=== PATIENT | male | born 1960 | race Caucasian/White ===

== ENCOUNTER 2017-02-27 12:56 | Inpatient (IN) | payer OTHER ==
--- NOTE | 2017-02-27 13:25 | EDM.PDOC ---
ED HISTORY OF PRESENT ILLNESS - General Chief Complaint: Respiratory Problem Stated Complaint: Cough, shortness of breath Time Seen by Provider: 02/27/17 13:25 Source of Information: Reports: Patient, RN notes reviewed History Limitations: Reports: No limitations - History of Present Illness INITIAL COMMENTS - FREE TEXT/NARRATIVE: 56 year old male presents to the ED for evaluation of shortness of breath and harsh, productive, cough. Sputum is described as yellow/brown in nature. He has a chronic dry cough. He denies fever but says he's felt chilled. His shortness of breath has significantly worsened over the past couple days. He is short of breath even with talking. He is not tolerating any sort of exertion. 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 He is undergoing chemo and radiation. He has been unable to eat or drink due to severe throat pain which has been attributed to the radiation treatments. He has lost 10 lbs over the past few days. He was at [facility] today for IV fluid therapy at which time they sent him to the ED due to his shortness of breath and cough. He does not wear oxygen at home. His Oncologist is Dr. Medel. He denies abdominal pain, nausea, vomiting, diarrhea. He was constipated but had 3 large bowel movements yesterday after taking Dulcolax. His abdomen is distended which is not new. - Related Data Allergies/ADRs: Allergies Allergy/AdvReac Type Severity Reaction Status Date / Time No Known Allergies Allergy Verified 02/27/17 13:18 Home Meds: Home Meds Albuterol [IJD: Ventolin HFA] 1 puff INH .TWICE DAILY #18 gm 01/16/17 [Rx] Aspirin [Adult Low Dose Aspirin EC] 1 tab PO DAILY 01/16/17 [History] Esomeprazole Magnesium [Nexium 24Hr] 1 tab PO DAILY 01/16/17 [History] methylPREDNISolone [Medrol] 4 mg PO ASDIRECTED #1 dosepk 01/16/17 [Rx] Past Medical History - Past Health History Medical/Surgical History: Denies Medical/Surgical History Gastrointestinal History: Reports: GERD Genitourinary History: Reports: Other (see below) Other Genitourinary History: 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 Denies : fever HEENT: Reports: Throat pain. Denies: Throat swelling Respiratory: Reports: Shortness of Breath, Cough, Sputum Cardiovascular: Reports: Dyspnea on exertion. Denies: Chest pain, Edema, Lightheadedness GI/Abdominal: Reports: Decreased appetite, Distension. Denies: Abdominal pain, Diarrhea, Nausea, Vomiting Musculoskeletal: Reports: no symptoms Neurological: Reports: No Symptoms. Denies: Confusion, Dizziness, Headache, Syncope ED EXAM, GENERAL - Physical Exam Exam: See Below Exam Limited By: No limitations General Appearance: alert, WD/WN, moderate distress Throat/Mouth: Other (dry mucous membranes, oropharynx is red but without swelling) Neck: normal inspection, supple, non-tender Respiratory/Chest: chest non-tender, respiratory distress, other (course lung sounds to left base and upper lobes ) Cardiovascular: normal peripheral pulses, regular rate, rhythm, no edema GI/Abdominal: normal bowel sounds, non tender, distended Neurological: alert, oriented, normal cognition Skin Exam: Warm, Dry, Intact Course - Vital Signs Last Recorded V/S: Last Vital Signs Temp 97.1 F 02/27/17 13:04 Pulse 85 02/27/17 13:04 Resp 18 02/27/17 13:04 BP 112/73 02/27/17 13:04 Pulse Ox 91 L 02/27/17 13:04 - Orders/Labs/Meds Orders: Active Orders 24 hr Category Date Time Status Patient Status [ADT] Routine ADT 02/27/17 16:10 Ordered Cardiac Monitoring [RC] . DIRECTED Care 02/27/17 13:37 Active CULTURE BLOOD [BC] Stat Lab 02/27/17 13:40 Ordered CULTURE BLOOD [BC] Stat Lab 02/27/17 14:38 Received Sodium Chloride 0.9% [Normal Saline] 1,000 ml Med 02/27/17 13:40 Active IV ONETIME Blood Culture x2 Reflex Set [OM.PC] Stat Oth 02/27/17 13:37 Ordered Medication Orders Sodium Chloride (Normal Saline) 1,000 mls @ 150 mls/hr IV ONETIME ONE Stop: 02/27/17 20:19 Last Admin: 02/27/17 14:21 Dose: 150 mls/hr Labs: Laboratory Tests 02/27/17 02/27/17 02/27/17 Range/Units 14:38 14:38 14:38 WBC 5.08 (4.23-9.07) K/mm3 RBC 5.15 (4.63-6.08) M/mm3 Hgb 14.6 (13.7-17.5) gm/L Hct 42.8 (40.1-51.0) % MCV 83.1 (79.0-92.2) fl MCH 28.3 (25.7-32.2) pg MCHC 34.1 (32.2-35.5) g/dl RDW Std Deviation 43.3 (35.1-43.9) fL Plt Count 80 L (163-337) K/mm3 MPV 9.6 (9.4-12.3) fl Neutrophils % (Manual) 84 H (40-60) % Band Neutrophils % 10 (0-10) % Lymphocytes % (Manual) 3 L (20-40) % Atypical Lymphs % 0 % Monocytes % (Manual) 3 (2-10) % Eosinophils % (Manual) 0 L (0.8-7.0) % Basophils % (Manual) 0 L (0.2-1.2) Toxic Granulation Few Platelet Estimate Decreased RBC Morph Comment Normal Sodium 130 L (136-145) mEq/L Potassium 4.6 (3.5-5.1) mEq/L Chloride 97 L (98-107) mEq/L Carbon Dioxide 27 (21-32) mEq/L Anion Gap 10.6 (5-15) BUN 28 H (7-18) mg/dL Creatinine 0.7 (0.7-1.3) mg/dL Est Cr Clr Drug Dosing 133.74 mL/min Estimated GFR (MDRD) > 60 (>60) mL/min BUN/Creatinine Ratio 40.0 H (14-18) Glucose 105 (74-106) mg/dL Lactic Acid 0.8 (0.4-2.0) mmol/L Calcium 8.8 (8.5-10.1) mg/dL Total Bilirubin 0.8 (0.2-1.0) mg/dL AST 29 (15-37) U/L ALT 84 H (16-63) U/L Alkaline Phosphatase 64 (46-116) U/L C-Reactive Protein 7.9 H* (<1.0) mg/dL Total Protein 6.3 L (6.4-8.2) g/dl Albumin 3.0 L (3.4-5.0) g/dl Globulin 3.3 gm/dL Albumin/Globulin Ratio 0.9 L (1-2) Meds: Medications Generic Name Dose Route Start Last Admin Trade Name Freq PRN Reason Stop Dose Admin Sodium Chloride 1,000 mls @ 150 mls/hr 02/27/17 13:40 02/27/17 14:21 Normal Saline IV 02/27/17 20:19 150 mls/hr ONETIME ONE Administration - Re-Assessments/Exams Free Text/Narrative Re-Assessment/Exam: Patient arrived with port-a-cath accessed. Nursing staff reported that they were unable to draw blood from the port. Offered peripheral draw but patient declined and preferred to have his port re-accessed. The nurses discontinued and restarted the port, again with no success drawing blood. Peripheral blood draw was performed. For this reason, only one blood culture was obtained. CBC reveals normal WBC of 5. Platelets are 80. H&H is normal. Sodium is 130, BUN 28, Creatinine normal. Anion gap is also normal. CRP is elevated at 7.9. Lactic acid is normal. Influenza B positive. Patient ambulated in ED on room air, saturation dropped to 84% with minimal exertion. Patient is agreeable to admission for influenza, hypoxia, dehydration. Discussed with Hospitalist Dr. Chou who has accepted care of patient for inpatient admission with telemetry. Patient finished his last chemo treatment today and now has a 20+ day break from chemo and radiation. Departure - Departure Time of Disposition: 16:11 Disposition: Admitted As Inpatient 64 Condition: fair Clinical Impression: Influenza, Hypoxia, Dehydration Referrals: PCP,None [Primary Care Provider] - Forms: ED Department Discharge - My Orders Last 24 Hours: My Active Orders 02/27/17 13:37 Cardiac Monitoring [RC] . DIRECTED Blood Culture x2 Reflex Set [OM.PC] Stat 02/27/17 13:40 CULTURE BLOOD [BC] Stat Sodium Chloride 0.9% [Normal Saline] 1,000 ml IV ONETIME 02/27/17 14:38 CULTURE BLOOD [BC] Stat 02/27/17 16:10 Patient Status [ADT] Routine - Assessment/Plan Last 24 Hours: My Active Orders 02/27/17 13:37 Cardiac Monitoring [RC] . DIRECTED Blood Culture x2 Reflex Set [OM.PC] Stat 02/27/17 13:40 CULTURE BLOOD [BC] Stat Sodium Chloride 0.9% [Normal Saline] 1,000 ml IV ONETIME 02/27/17 14:38 CULTURE BLOOD [BC] Stat 02/27/17 16:10 Patient Status [ADT] Routine
[2017-02-27] MEDS ORDERED: Sodium Chloride 0.9% 1,000 ML IV ONE (13:40)
--- NOTE | 2017-02-27 14:44 | CR ---
Chest: Two views of the chest are obtained. Comparison: No previous study. Increased central lung markings are seen. No alveolar type densities are seen. Diaphragms are slightly flattened on the lateral view. Bony structures are within normal limits for the patient's age. Left-sided infusion port is seen. Impression: 1. Increased central lung markings. Please correlate if patient has any symptoms of infectious bronchitis. 2. Lungs are somewhat hyperinflated compatible with possible emphysematous change or chronic asthma. Diagnostic code #3
[2017-02-27] MEDS ORDERED: Albuterol 0.083% 2.5 MG/3 ML Neb Soln NEB PRN (17:41)
[2017-02-27] MEDS ORDERED: Ondansetron 4 MG/2 ML SDV IVPUSH PRN (17:44)
[2017-02-27] MEDS ORDERED: Promethazine 12.5 MG in Sodium Chloride 0.9% 50 ML IV PRN (17:44)
[2017-02-27] MEDS ORDERED: Acetaminophen Soln 650 MG/20.3 ML UD Cup PO PRN (17:54)
[2017-02-27] MEDS ORDERED: Temazepam 15 MG Cap PO PRN (17:56)
[2017-02-27] MEDS: Oseltamivir 75 MG Cap PO SCH ×2 (17:57→20:54)
[2017-02-27] MEDS: methylPREDNISolone Sodium Succinate 40 MG/1 ML SDV IVPUSH SCH (17:57)
[2017-02-27] MEDS: Lactated Ringers 1,000 ML IV SCH ×3 (18:04→20:53)
--- NOTE | 2017-02-27 18:31 | PCM.HP ---
H&P History of Present Illness - General Date of Service: 02/27/17 Admit Problem/Dx: Admission Diagnosis/Problem Admission Diagnosis/Problem Influenza Source of Information: Patient, Family, Provider History Limitations: Reports: No limitations - History of Present Illness Initial Comments - Free Text/Narative: 56 year old male with history of non-operative small cell lung ca with mets to the spine, presents with dehydration; was seen at [facility] and receiving IV hydration, but was sent with SOB associated with a harsh cough. The patient complained of sputum as well, denied corbin blood. Admits to chills however, denies a fever. Has been unable to eat since the initiation of CTX/RTX; state that it feels like the food is getting stuck in his throat. He has lost 10 pounds since he has been unable to great, occasionally after medication to numb his throat he can tolerate beverages. Onset of Symptoms: Reports: unknown/unsure Duration of Symptoms: Reports: Week(s):, Getting worse Location: Reports: chest Quality: Reports: Same as previous episode Severity: severe Improves with: Reports: None Worsens with: Reports: None Context: Reports: sick contact Associated Symptoms: Reports: cough w sputum, fever/chills, loss of appetite, shortness of breath, weakness - Related Data Allergies/Adverse Reactions: Allergies Allergy/AdvReac Type Severity Reaction Status Date / Time No Known Allergies Allergy Verified 02/27/17 13:18 Home Medications: Home Meds Albuterol [IJD: Ventolin HFA] 1 puff INH .TWICE DAILY #18 gm 01/16/17 [Rx] methylPREDNISolone [Medrol] 4 mg PO TID 02/27/17 [History] Past Medical History - Past Health History Medical/Surgical History: Denies Medical/Surgical History Gastrointestinal History: Reports: GERD Genitourinary History: Reports: Other (see below) Other Genitourinary History: 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 Denies: fever HEENT: Reports: no symptoms Pulmonary: Reports: Shortness of Breath Cardiovascular: Reports: chest pain Gastrointestinal: Reports: Anorexia, Constipation, Difficulty swallowing Genitourinary: Reports: no symptoms Musculoskeletal: Reports: no symptoms Skin: Reports: no symptoms Psychiatric: Reports: no symptoms Neurological: Reports: No Symptoms Hematologic/Lymphatic: Reports: no symptoms Immunologic: Reports: no symptoms Exam - Exam Exam: See Below - Vital Signs Vital Signs: Last Vital Signs Temp 36.2 C 02/27/17 13:04 Pulse 75 02/27/17 16:40 Resp 21 H 02/27/17 16:40 BP 125/88 02/27/17 16:40 Pulse Ox 96 02/27/17 16:40 Weight: 96.298 kg - Exam Quality Assessment: central line/PICC, DVT prophylaxis General: alert, oriented, cooperative HEENT: EOMI, Hearing intact, Nares patent, Normal nasal septum, Pupils equal, Pupils reactive Neck: supple, trachea midline Lungs: Normal respiratory effort, Decreased breath sounds, Wheezing Cardiovascular: regular rate, tachycardia Abdomen: normal bowel sounds, soft (Male) Exam: Deferred Rectal (Males) Exam: Deferred Back Exam: normal inspection Extremities: normal inspection Skin: warm Neurological: cranial nerves intact Neuro Extensive - Mental Status: alert, oriented x3, normal mood/affect, normal cognition, memory intact Neuro Extensive - Motor, Sensory, Reflexes: CN II-XII intact Psychiatric: alert, normal affect, normal mood - Patient Data Result Diagrams: 02/27/17 14:38 02/27/17 14:38 *Q Meaningful Use (ADM) - VTE *Q VTE Criteria *Q: - Stroke *Q Stroke Criteria *Q: - AMI *Q AMI Criteria *Q: - Problem List (1) Dehydration SNOMED Code(s): 36946900 ICD Code: E86.0 - DEHYDRATION Status: Acute Current Visit: Yes (2) Hypoxia SNOMED Code(s): 035622432, 346791769 ICD Code: R09.02 - HYPOXEMIA Status: Acute Current Visit: Yes (3) Influenza SNOMED Code(s): 5259142 ICD Code: J11.1 - FLU DUE TO UNIDENTIFIED INFLUENZA VIRUS W OTH RESP MANIFEST Status: Acute Current Visit: Yes Problem List Initiated/Reviewed/Updated: Yes Orders Last 24hrs: Active Orders 24 hr Category Date Time Status Activity as Tolerated [RC] .Routine Care 02/27/17 18:04 Active Antiembolic Devices [RC] PER UNIT ROUTINE Care 02/27/17 17:41 Active RT Aerosol Therapy [RC] .PRN Care 02/27/17 17:39 Active RT Aerosol Therapy [RC] ASDIRECTED Care 02/27/17 17:41 Active Vital Signs [RC] PER UNIT ROUTINE Care 02/27/17 17:34 Active Consult to Occupational Therapy [OT Evaluation and Cons 02/28/17 10:00 Active Treatment] [CONS] Routine Consult to Physical Therapy [PT Evaluation and Cons 02/28/17 09:00 Active Treatment] [CONS] Routine Consult to [facility] [CONS] Routine Cons 02/28/17 09:00 Active Clear Liquid Diet [DIET] Diet 02/27/17 Dinner Active NPO After Midnight [Nothing per Oral After Midnight Diet 02/28/17 Breakfast Active Diet] [DIET] CXR [Chest 2V] [CR] Routine Exams 03/01/17 09:00 Ordered Swallowing Function w Video [CR] Routine Exams 02/28/17 08:45 Ordered BASIC METABOLIC PANEL,BMP [CHEM] DAILY Lab 02/28/17 05:00 Ordered BASIC METABOLIC PANEL,BMP [CHEM] DAILY Lab 03/01/17 05:00 Ordered BASIC METABOLIC PANEL,BMP [CHEM] DAILY Lab 03/02/17 05:00 Ordered CBC W/O DIFF,HEMOGRAM [HEME] MOTH@0700 Lab 03/03/17 07:00 Ordered CBC W/O DIFF,HEMOGRAM [HEME] MOTH@0700 Lab 03/06/17 07:00 Ordered CBC W/O DIFF,HEMOGRAM [HEME] MOTH@0700 Lab 03/10/17 07:00 Ordered CBC W/O DIFF,HEMOGRAM [HEME] MOTH@0700 Lab 03/13/17 07:00 Ordered CBC W/O DIFF,HEMOGRAM [HEME] MOTH@0700 Lab 03/17/17 07:00 Ordered CBC W/O DIFF,HEMOGRAM [HEME] MOTH@0700 Lab 03/20/17 07:00 Ordered CBC WITH AUTO DIFF [HEME] DAILY Lab 02/28/17 05:00 Ordered CBC WITH AUTO DIFF [HEME] DAILY Lab 03/01/17 05:00 Ordered CBC WITH AUTO DIFF [HEME] DAILY Lab 03/02/17 05:00 Ordered CRP [C-REACTIVE PROTEIN] [CHEM] DAILY Lab 02/28/17 05:00 Ordered CRP [C-REACTIVE PROTEIN] [CHEM] DAILY Lab 03/01/17 05:00 Ordered MAGNESIUM [CHEM] DAILY Lab 02/28/17 05:00 Ordered MAGNESIUM [CHEM] DAILY Lab 03/01/17 05:00 Ordered MAGNESIUM [CHEM] DAILY Lab 03/02/17 05:00 Ordered MYCOPLASMA PNEUMONIAE IGM AB [CHEM] Routine Lab 02/28/17 05:00 Ordered STREP PNEUMONIAE ANTIGEN [MREF] Routine Lab 02/28/17 19:00 Uncollected Acetaminophen [Tylenol] Med 02/27/17 17:54 Active 650 mg PO Q6H PRN Albuterol [Proventil Neb Soln] Med 02/27/17 17:41 Active 2.5 mg NEB Q4H PRN Enoxaparin [Lovenox] Med 02/28/17 09:00 Pending 40 mg SUBCUT DAILY Lactated Ringers [Ringers, Lactated] 1,000 ml Med 02/27/17 20:00 Active IV ASDIRECTED Lactated Ringers [Ringers, Lactated] 1,000 ml Med 02/27/17 17:45 Active IV Q1H Levalbuterol HCl [Xopenex] Med 02/27/17 21:00 Active 1.25 mg NEB QIDRT Ondansetron [Zofran] Med 02/27/17 17:44 Active 4 mg IVPUSH Q8H PRN Oseltamivir [Tamiflu] Med 02/27/17 17:45 Active 75 mg PO BID Promethazine [Phenergan] 12.5 mg Med 02/27/17 17:44 Active Sodium Chloride 0.9% [Normal Saline] 50 ml IV Q6H Temazepam [Restoril] Med 02/27/17 17:56 Active 15 mg PO BEDTIME PRN methylPREDNISolone Sod Succ [Solu-MEDROL] Med 02/27/17 18:00 Active 40 mg IVPUSH Q12H Isolation [COMM] Routine Oth 02/27/17 17:56 Ordered MARIANA Hose [Antiembolic Hose] [OM.PC] Routine Oth 02/27/17 17:41 Ordered Code Status [Resuscitation Status] Routine Resus Stat 02/27/17 17:34 Ordered Medication Orders Acetaminophen (Tylenol) 650 mg PO Q6H PRN PRN Reason: Fever Albuterol (Proventil Neb Soln) 2.5 mg NEB Q4H PRN PRN Reason: Shortness of Breath Enoxaparin Sodium (Lovenox) 40 mg SUBCUT DAILY [facility] Lactated Ringer's (Ringers, Lactated) 1,000 mls @ 999 mls/hr IV Q1H [facility] Stop: 02/27/17 20:44 Last Admin: 02/27/17 18:04 Dose: 999 mls/hr Promethazine HCl 12.5 mg/ (Sodium Chloride) 50.5 mls @ 100 mls/hr IV Q6H PRN PRN Reason: Nausea/Vomiting Lactated Ringer's (Ringers, Lactated) 1,000 mls @ 125 mls/hr IV ASDIRECTED [facility] Levalbuterol HCl (Xopenex) 1.25 mg NEB QIDRT [facility] Methylprednisolone Sodium Succinate (Solu-Medrol) 40 mg IVPUSH Q12H [facility] Last Admin: 02/27/17 17:57 Dose: 40 mg Ondansetron HCl (Zofran) 4 mg IVPUSH Q8H PRN PRN Reason: Nausea/Vomiting Oseltamivir Phosphate (Tamiflu) 75 mg PO BID [facility] Last Admin: 02/27/17 17:57 Dose: 75 mg Temazepam (Restoril) 15 mg PO BEDTIME PRN PRN Reason: Insomnia Assessment/Plan Comment:: Impression: Acute respiratory suppression with hypoxia, Influenza B positive s/p CTX/RTX for 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 Resp screen for pneumonia DVT/GI prophylaxis SW/OT/PT re: home health DNR/DNI
[2017-02-27] MEDS ORDERED: Diphenhydramine/Lidocaine/MagAl/Simethicone 119 ML Bottle PO PRN (19:12)
[2017-02-27] MEDS ORDERED: Lactated Ringers 1,000 ML IV SCH (20:00)
[2017-02-27] MEDS: Levalbuterol HCl 1.25 MG/3 ML Neb NEB SCH (20:42)
[2017-02-28] MEDS: methylPREDNISolone Sodium Succinate 40 MG/1 ML SDV IVPUSH SCH ×2 (05:40→17:58)
[2017-02-28] MEDS: Levalbuterol HCl 1.25 MG/3 ML Neb NEB SCH ×4 (06:12→20:51)
[2017-02-28] MEDS ORDERED: Enoxaparin 40 MG/0.4 ML Syringe SUBCUT SCH (09:00)
[2017-02-28] MEDS: Oseltamivir 75 MG Cap PO SCH ×2 (09:53→21:35)
[2017-02-28] MEDS ORDERED: Barium Sulfate 60% w/v Susp 355 ML Bottle PO ONE (09:58)
[2017-02-28] MEDS ORDERED: Barium Sulfate 60% w/w Esophageal Crm 454 GM Tube PO ONE (09:58)
[2017-02-28] MEDS ORDERED: Barium Sulfate 98% Powder for Susp 340 GM Bottle PO ONE (09:58)
[2017-02-28] MEDS ORDERED: Piperacillin/Tazobactam 4.5 GM in Sodium Chloride 0.9% 100 ML IV ONE (10:30)
[2017-02-28] MEDS ORDERED: Levofloxacin/Dextrose 5%-Water 750 MG in Premix Bag 1 BAG IV SCH (11:00)
--- NOTE | 2017-02-28 11:08 | CR ---
[facility] swallowing video procedure was performed in conjunction with the speech pathologist. Different consistencies of barium were given. No aspiration or significant residual is seen. Slow peristaltic wave is noted within the esophagus. No esophageal stricture is seen. Impression: 1. Slow peristaltic wave seen within the esophagus. Findings felt compatible with early presbyesophagus. No stricture is seen within the esophagus. 2. No aspiration or significant residual is seen. Diagnostic code #2
[2017-02-28] MEDS: Saccharomyces Boulardii (Probiotic) 250 MG Cap PO SCH (11:13)
--- NOTE | 2017-02-28 11:58 | PCM.PN ---
- General Info Date of Service: 02/28/17 Functional Status: Reports: pain controlled, tolerating diet, ambulating, urinating - Review of Systems General: Reports: Weakness HEENT: Reports: no symptoms Pulmonary: Reports: shortness of breath Cardiovascular: Reports: No Symptoms Gastrointestinal: Reports: Difficulty swallowing. Denies: No symptoms Genitourinary: Reports: no symptoms Musculoskeletal: Reports: no symptoms Skin: Reports: no symptoms Neurological: Reports: No Symptoms Psychiatric: Reports: no symptoms - Patient Data Vitals - most recent: Last Vital Signs Temp 36.9 C 02/28/17 05:40 Pulse 68 02/28/17 05:40 Resp 14 02/28/17 05:40 BP 97/68 02/28/17 05:40 Pulse Ox 90 L 02/28/17 09:15 Weight - most recent: 94.937 kg I&O - last 24 hours: Intake & Output 02/27/17 02/28/17 02/28/17 22:59 06:59 14:59 Intake Total 600 1700 0 Output Total 1200 Balance 600 500 0 Lab Results last 24 hrs: Laboratory Results - last 24 hr 02/28/17 02/28/17 Range/Units 05:53 05:53 WBC 4.17 L (4.23-9.07) K/mm3 RBC 4.71 (4.63-6.08) M/mm3 Hgb 13.6 L (13.7-17.5) gm/L Hct 39.6 L (40.1-51.0) % MCV 84.1 (79.0-92.2) fl MCH 28.9 (25.7-32.2) pg MCHC 34.3 (32.2-35.5) g/dl RDW Std Deviation 43.9 (35.1-43.9) fL Plt Count 65 L (163-337) K/mm3 MPV 9.5 (9.4-12.3) fl Neut % (Auto) 86.7 H (34.0-67.9) % Lymph % (Auto) 1.9 L (21.8-53.1) % [place] % (Auto) 0.2 L (5.3-12.2) % Eos % (Auto) 0 L (0.8-7.0) Baso % (Auto) 0.2 (0.1-1.2) % Neut # (Auto) 3.61 (1.78-5.38) K/mm3 Lymph # (Auto) 0.08 L (1.32-3.57) K/mm3 [place] # (Auto) 0.01 L (0.30-0.82) K/mm3 Eos # (Auto) 0.00 L (0.04-0.54) K/mm3 Baso # (Auto) 0.01 (0.01-0.08) K/mm3 Manual Slide Review Abnormal smear Sodium 133 L (136-145) mEq/L Potassium 4.4 (3.5-5.1) mEq/L Chloride 98 (98-107) mEq/L Carbon Dioxide 30 (21-32) mEq/L Anion Gap 9.4 (5-15) BUN 21 H (7-18) mg/dL Creatinine 0.8 (0.7-1.3) mg/dL Est Cr Clr Drug Dosing 117.02 mL/min Estimated GFR (MDRD) > 60 (>60) mL/min BUN/Creatinine Ratio 26.3 H (14-18) Glucose 95 (74-106) mg/dL Calcium 8.5 (8.5-10.1) mg/dL Magnesium 1.9 (1.8-2.4) mg/dl C-Reactive Protein 14.2 H* (<1.0) mg/dL Mycoplasma pneumon IgM Negative (NEGATIVE) Med Orders - Current: Current Medications Acetaminophen (Tylenol) 650 mg PO Q6H PRN PRN Reason: Fever Albuterol (Proventil Neb Soln) 2.5 mg NEB Q4H PRN PRN Reason: Shortness of Breath Diphenhydr/Magaldrate/Simeth/Lidoca (First-Mouthwash Blm Susp) 30 ml PO ACBED PRN PRN Reason: Sore Throat Promethazine HCl 12.5 mg/ (Sodium Chloride) 50.5 mls @ 100 mls/hr IV Q6H PRN PRN Reason: Nausea/Vomiting Lactated Ringer's (Ringers, Lactated) 1,000 mls @ 125 mls/hr IV ASDIRECTED [facility] Last Admin: 02/27/17 21:58 Dose: 125 mls/hr Piperacillin Sod/Tazobactam (Sod 4.5 gm/ Sodium Chloride) 100 mls @ 25 mls/hr IV Q8H [facility] Levofloxacin/Dextrose 750 mg/ (Premix) 150 mls @ 100 mls/hr IV Q24H [facility] Levalbuterol HCl (Xopenex) 1.25 mg NEB QIDRT [facility] Last Admin: 02/28/17 09:14 Dose: 1.25 mg Methylprednisolone Sodium Succinate (Solu-Medrol) 40 mg IVPUSH Q12H [facility] Last Admin: 02/28/17 05:40 Dose: 40 mg Ondansetron HCl (Zofran) 4 mg IVPUSH Q8H PRN PRN Reason: Nausea/Vomiting Oseltamivir Phosphate (Tamiflu) 75 mg PO BID [facility] Stop: 03/04/17 21:01 Last Admin: 02/28/17 09:53 Dose: 75 mg Saccharomyces Boulardii (Florastor) 250 mg PO DAILY [facility] Last Admin: 02/28/17 11:13 Dose: 250 mg Temazepam (Restoril) 15 mg PO BEDTIME PRN PRN Reason: Insomnia Discontinued Medications Barium Sulfate (E-Z-Paste) 454 gm PO ONETIME ONE Stop: 02/28/17 09:59 Barium Sulfate (E-Z-Hd) 340 gm PO ONETIME ONE Stop: 02/28/17 09:59 Barium Sulfate (Liquid E-Z Paque) 355 ml PO PREPRO ONE Stop: 02/28/17 09:59 Enoxaparin Sodium (Lovenox) 40 mg SUBCUT DAILY [facility] Sodium Chloride (Normal Saline) 1,000 mls @ 150 mls/hr IV ONETIME ONE Stop: 02/27/17 20:19 Last Admin: 02/27/17 14:21 Dose: 150 mls/hr Lactated Ringer's (Ringers, Lactated) 1,000 mls @ 999 mls/hr IV Q1H [facility] Stop: 02/27/17 20:44 Last Admin: 02/27/17 20:53 Dose: 999 mls/hr Levofloxacin/Dextrose 750 mg/ (Premix) 150 mls @ 100 mls/hr IV Q24H [facility] Piperacillin Sod/Tazobactam (Sod 4.5 gm/ Sodium Chloride) 100 mls @ 200 mls/hr IV ONETIME ONE Stop: 02/28/17 10:59 Last Admin: 02/28/17 11:26 Dose: 200 mls/hr - Exam Quality Assessment: DVT prophylaxis General: alert, oriented, cooperative, no acute distress HEENT: Pupils equal, Pupils reactive, EOMI Neck: supple, trachea midline Lungs: Normal respiratory effort, Decreased breath sounds, Wheezing Cardiovascular: Regular Rate, Regular Rhythm Abdomen: bowel sounds present, soft, no tenderness, no distension (Male) Exam: Deferred Back Exam: normal inspection Extremities: normal pulses Skin: warm Neurological: no new focal deficit, normal gait, normal speech Psy/Mental Status: alert, normal affect, normal mood - Problem List & Annotations (1) Dehydration SNOMED Code(s): 16677265 Code(s): E86.0 - DEHYDRATION Status: Acute Current Visit: Yes (2) Hypoxia SNOMED Code(s): 176488519, 213800124 Code(s): R09.02 - HYPOXEMIA Status: Acute Current Visit: Yes (3) Influenza SNOMED Code(s): 2142644 Code(s): J11.1 - FLU DUE TO UNIDENTIFIED INFLUENZA VIRUS W OTH RESP MANIFEST Status: Acute Current Visit: Yes - Problem List Review Problem List Initiated/Reviewed/Updated: Yes - My Orders Last 24 Hours: My Active Orders 02/27/17 17:34 Vital Signs [RC] Q4HR Code Status [Resuscitation Status] Routine 02/27/17 17:39 RT Aerosol Therapy [RC] .PRN 02/27/17 17:41 Antiembolic Devices [RC] PER UNIT ROUTINE Albuterol [Proventil Neb Soln] 2.5 mg NEB Q4H PRN MARIANA Hose [Antiembolic Hose] [OM.PC] Routine 02/27/17 17:44 Ondansetron [Zofran] 4 mg IVPUSH Q8H PRN Promethazine [Phenergan] 12.5 mg Sodium Chloride 0.9% [Normal Saline] 50 ml IV Q6H 02/27/17 17:45 Oseltamivir [Tamiflu] 75 mg PO BID 02/27/17 17:54 Acetaminophen [Tylenol] 650 mg PO Q6H PRN 02/27/17 17:56 Temazepam [Restoril] 15 mg PO BEDTIME PRN Isolation [COMM] Routine 02/27/17 18:00 methylPREDNISolone Sod Succ [Solu-MEDROL] 40 mg IVPUSH Q12H 02/27/17 18:04 Activity as Tolerated [RC] DAILY 02/27/17 19:12 Diphenhyd/Lidocaine/MagAl/Windy [First-Mouthwash BLM Susp] 30 ml PO ACBED PRN 02/27/17 20:00 Lactated Ringers [Ringers, Lactated] 1,000 ml IV ASDIRECTED 02/27/17 21:00 Levalbuterol HCl [Xopenex] 1.25 mg NEB QIDRT 02/27/17 Dinner Clear Liquid Diet [DIET] 02/28/17 09:00 Consult to Physical Therapy [PT Evaluation and Treatment] [CONS] Routine Consult to Cover Stripper [CONS] Routine 02/28/17 10:00 Consult to Occupational Therapy [OT Evaluation and Treatment] [CONS] Routine 02/28/17 10:30 Saccharomyces Boulardii [Florastor] 250 mg PO DAILY 02/28/17 16:00 Levofloxacin/Dextrose 5%-Water [Levaquin in D5W 750 MG/150 ML] 750 mg Premix Bag 1 bag IV Q24H 02/28/17 18:30 Piperacillin/Tazobactam [Zosyn] 4.5 gm Sodium Chloride 0.9% [Normal Saline] 100 ml IV Q8H 02/28/17 19:00 STREP PNEUMONIAE ANTIGEN [MREF] Routine 02/28/17 Breakfast NPO After Midnight [Nothing per Oral After Midnight Diet] [DIET] 03/01/17 05:00 BASIC METABOLIC PANEL,BMP [CHEM] DAILY CBC WITH AUTO DIFF [HEME] DAILY CRP [C-REACTIVE PROTEIN] [CHEM] DAILY MAGNESIUM [CHEM] DAILY 03/01/17 09:00 CXR [Chest 2V] [CR] Routine 03/02/17 05:00 BASIC METABOLIC PANEL,BMP [CHEM] DAILY CBC WITH AUTO DIFF [HEME] DAILY MAGNESIUM [CHEM] DAILY 03/03/17 07:00 CBC W/O DIFF,HEMOGRAM [HEME] MOTH@69903/06/17 07:00 CBC W/O DIFF,HEMOGRAM [HEME] MOTH@0703/10/17 07:00 CBC W/O DIFF,HEMOGRAM [HEME] MOTH@0700 03/13/17 07:00 CBC W/O DIFF,HEMOGRAM [HEME] MOTH@69903/17/17 07:00 CBC W/O DIFF,HEMOGRAM [HEME] MOTH@0700 03/20/17 07:00 CBC W/O DIFF,HEMOGRAM [HEME] MOTH@0700 - Plan Plan:: Impression: Acute respiratory distress with hypoxia, Influenza B positive s/p CTX/RTX for 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 Query Infiltrate cf URI Video swallow without obstruction, mild dysfunction noted in area where patient describes pain. 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 DVT/GI prophylaxis SW/OT/PT re: home health DNR/DNI
[2017-02-28] MEDS: Sodium Chloride 0.9% 1,000 ML IV SCH ×2 (12:48→21:07)
[2017-02-28] MEDS: Levofloxacin/Dextrose 5%-Water 750 MG in Premix Bag 1 BAG IV SCH (15:46)
[2017-02-28] MEDS: Piperacillin/Tazobactam 4.5 GM in Sodium Chloride 0.9% 100 ML IV SCH (17:58)
[2017-03-01] MEDS: Piperacillin/Tazobactam 4.5 GM in Sodium Chloride 0.9% 100 ML IV SCH ×3 (02:50→18:47)
[2017-03-01] MEDS: Sodium Chloride 0.9% 1,000 ML IV SCH (05:16)
[2017-03-01] MEDS: methylPREDNISolone Sodium Succinate 40 MG/1 ML SDV IVPUSH SCH ×2 (05:21→18:47)
[2017-03-01] MEDS: Levalbuterol HCl 1.25 MG/3 ML Neb NEB SCH ×4 (06:39→20:50)
[2017-03-01] MEDS: Oseltamivir 75 MG Cap PO SCH ×2 (09:13→21:43)
[2017-03-01] MEDS: Saccharomyces Boulardii (Probiotic) 250 MG Cap PO SCH (09:13)
--- NOTE | 2017-03-01 09:34 | CR ---
Chest: 2 views of the chest were obtained. Comparison: Previous chest x-ray of 02/27/17. Increased central lung markings are again noted. Findings remain stable from prior exam. Left-sided infusion port is seen. Lungs otherwise are clear but hyperinflated. Mild degenerative change is seen within the spine. Impression: 1. Increased central lung markings which remains stable from prior chest x-ray. 2. Stable infusion catheter is seen. 3. Other findings which are stable as noted above. Diagnostic code #3
[2017-03-01] MEDS: Dextrose 5%-0.9% NaCl 1,000 ML IV SCH ×2 (11:06→18:47)
--- NOTE | 2017-03-01 13:35 | PCM.PN ---
- General Info Date of Service: 03/01/17 Functional Status: Reports: pain controlled (avoids pain meds), tolerating diet (avoids eating), ambulating, urinating - Review of Systems General: Reports: Weakness HEENT: Reports: no symptoms Pulmonary: Reports: no symptoms Cardiovascular: Reports: No Symptoms Gastrointestinal: Reports: No symptoms Genitourinary: Reports: no symptoms Musculoskeletal: Reports: no symptoms Skin: Reports: no symptoms Neurological: Reports: No Symptoms Psychiatric: Reports: no symptoms - Patient Data Vitals - most recent: Last Vital Signs Temp 37.8 C 03/01/17 09:13 Pulse 84 03/01/17 08:17 Resp 17 03/01/17 08:17 BP 130/88 03/01/17 08:17 Pulse Ox 96 03/01/17 09:23 Weight - most recent: 93.168 kg I&O - last 24 hours: Intake & Output 02/28/17 03/01/17 03/01/17 22:59 06:59 14:59 Intake Total 2424 1299 360 Output Total 400 Balance 2024 1299 360 Lab Results last 24 hrs: Laboratory Results - last 24 hr 03/01/17 03/01/17 Range/Units 06:05 06:05 WBC 1.21 L* (4.23-9.07) K/mm3 RBC 4.42 L (4.63-6.08) M/mm3 Hgb 12.6 L (13.7-17.5) gm/L Hct 37.1 L (40.1-51.0) % MCV 83.9 (79.0-92.2) fl MCH 28.5 (25.7-32.2) pg MCHC 34.0 (32.2-35.5) g/dl RDW Std Deviation 43.3 (35.1-43.9) fL Plt Count 55 L (163-337) K/mm3 MPV 9.6 (9.4-12.3) fl Neut % (Auto) 76.9 H (34.0-67.9) % Lymph % (Auto) 4.1 L (21.8-53.1) % [place] % (Auto) 0.0 L (5.3-12.2) % Eos % (Auto) 0.8 (0.8-7.0) Baso % (Auto) 1.7 H (0.1-1.2) % Neut # (Auto) 0.93 L (1.78-5.38) K/mm3 Lymph # (Auto) 0.05 L (1.32-3.57) K/mm3 [place] # (Auto) 0 L (0.30-0.82) K/mm3 Eos # (Auto) 0.01 L (0.04-0.54) K/mm3 Baso # (Auto) 0.02 (0.01-0.08) K/mm3 Manual Slide Review Abnormal smear Sodium 133 L (136-145) mEq/L Potassium 3.9 (3.5-5.1) mEq/L Chloride 98 (98-107) mEq/L Carbon Dioxide 27 (21-32) mEq/L Anion Gap 11.9 (5-15) BUN 16 (7-18) mg/dL Creatinine 0.8 (0.7-1.3) mg/dL Est Cr Clr Drug Dosing 117.02 mL/min Estimated GFR (MDRD) > 60 (>60) mL/min BUN/Creatinine Ratio 20.0 H (14-18) Glucose 107 H (74-106) mg/dL Calcium 8.2 L (8.5-10.1) mg/dL Magnesium 1.9 (1.8-2.4) mg/dl C-Reactive Protein 16.4 H* (<1.0) mg/dL Med Orders - Current: Current Medications Acetaminophen (Tylenol) 650 mg PO Q6H PRN PRN Reason: Fever Last Admin: 03/01/17 09:13 Dose: 650 mg Albuterol (Proventil Neb Soln) 2.5 mg NEB Q4H PRN PRN Reason: Shortness of Breath Benzocaine/Menthol (Cepacol Sore Throat) 1 lozenge MUCMEM Q2HR PRN PRN Reason: Sore Throat Diphenhydr/Magaldrate/Simeth/Lidoca (First-Mouthwash Blm Susp) 30 ml PO ACBED PRN PRN Reason: Sore Throat Promethazine HCl 12.5 mg/ (Sodium Chloride) 50.5 mls @ 100 mls/hr IV Q6H PRN PRN Reason: Nausea/Vomiting Piperacillin Sod/Tazobactam (Sod 4.5 gm/ Sodium Chloride) 100 mls @ 25 mls/hr IV Q8H [facility] Last Admin: 03/01/17 11:06 Dose: 25 mls/hr Levofloxacin/Dextrose 750 mg/ (Premix) 150 mls @ 100 mls/hr IV Q24H [facility] Last Admin: 02/28/17 15:46 Dose: 100 mls/hr Dextrose/Sodium Chloride (Dextrose 5%-Normal Saline) 1,000 mls @ 125 mls/hr IV ASDIRECTED [facility] Last Admin: 03/01/17 11:06 Dose: 125 mls/hr Levalbuterol HCl (Xopenex) 1.25 mg NEB QIDRT [facility] Last Admin: 03/01/17 09:22 Dose: 1.25 mg Methylprednisolone Sodium Succinate (Solu-Medrol) 40 mg IVPUSH Q12H [facility] Last Admin: 03/01/17 05:21 Dose: 40 mg Ondansetron HCl (Zofran) 4 mg IVPUSH Q8H PRN PRN Reason: Nausea/Vomiting Oseltamivir Phosphate (Tamiflu) 75 mg PO BID [facility] Stop: 03/04/17 21:01 Last Admin: 03/01/17 09:13 Dose: 75 mg Saccharomyces Boulardii (Florastor) 250 mg PO DAILY [facility] Last Admin: 03/01/17 09:13 Dose: 250 mg Tbo-Filgrastim (Granix) 480 mcg SUBCUT DAILY [facility] Last Admin: 03/01/17 09:13 Dose: 480 mcg Temazepam (Restoril) 15 mg PO BEDTIME PRN PRN Reason: Insomnia Discontinued Medications Barium Sulfate (E-Z-Paste) 454 gm PO ONETIME ONE Stop: 02/28/17 09:59 Last Admin: 02/28/17 14:42 Dose: Not Given Barium Sulfate (E-Z-Hd) 340 gm PO ONETIME ONE Stop: 02/28/17 09:59 Last Admin: 02/28/17 14:42 Dose: Not Given Barium Sulfate (Liquid E-Z Paque) 355 ml PO PREPRO ONE Stop: 02/28/17 09:59 Last Admin: 02/28/17 14:43 Dose: Not Given Enoxaparin Sodium (Lovenox) 40 mg SUBCUT DAILY [facility] Sodium Chloride (Normal Saline) 1,000 mls @ 150 mls/hr IV ONETIME ONE Stop: 02/27/17 20:19 Last Admin: 02/27/17 14:21 Dose: 150 mls/hr Lactated Ringer's (Ringers, Lactated) 1,000 mls @ 999 mls/hr IV Q1H [facility] Stop: 02/27/17 20:44 Last Admin: 02/27/17 20:53 Dose: 999 mls/hr Lactated Ringer's (Ringers, Lactated) 1,000 mls @ 125 mls/hr IV ASDIRECTED [facility] Last Admin: 02/27/17 21:58 Dose: 125 mls/hr Levofloxacin/Dextrose 750 mg/ (Premix) 150 mls @ 100 mls/hr IV Q24H [facility] Piperacillin Sod/Tazobactam (Sod 4.5 gm/ Sodium Chloride) 100 mls @ 200 mls/hr IV ONETIME ONE Stop: 02/28/17 10:59 Last Admin: 02/28/17 11:26 Dose: 200 mls/hr Sodium Chloride (Normal Saline) 1,000 mls @ 125 mls/hr IV ASDIRECTED [facility] Last Admin: 03/01/17 05:16 Dose: 125 mls/hr - Exam Quality Assessment: DVT prophylaxis General: alert, oriented, cooperative, no acute distress HEENT: Pupils equal, Pupils reactive, EOMI, Mucous membr. moist/pink Neck: supple, trachea midline, no JVD Lungs: Normal respiratory effort Cardiovascular: Regular Rate, Regular Rhythm Abdomen: bowel sounds present, soft, no tenderness, no distension (Male) Exam: No hernia Back Exam: normal inspection Extremities: normal pulses Skin: warm Wound/Incisions: dressing dry and intact Neurological: no new focal deficit, normal speech Psy/Mental Status: alert, normal affect, normal mood - Problem List & Annotations (1) Dehydration SNOMED Code(s): 08111154 Code(s): E86.0 - DEHYDRATION Status: Acute Current Visit: Yes (2) Hypoxia SNOMED Code(s): 073414092, 809482041 Code(s): R09.02 - HYPOXEMIA Status: Acute Current Visit: Yes (3) Influenza SNOMED Code(s): 4158288 Code(s): J11.1 - FLU DUE TO UNIDENTIFIED INFLUENZA VIRUS W OTH RESP MANIFEST Status: Acute Current Visit: Yes (4) Neutropenia SNOMED Code(s): 962760693 Code(s): D70.9 - NEUTROPENIA, UNSPECIFIED Status: Acute Current Visit: Yes - Problem List Review Problem List Initiated/Reviewed/Updated: Yes - My Orders Last 24 Hours: My Active Orders 02/28/17 16:00 Levofloxacin/Dextrose 5%-Water [Levaquin in D5W 750 MG/150 ML] 750 mg Premix Bag 1 bag IV Q24H 02/28/17 18:30 Piperacillin/Tazobactam [Zosyn] 4.5 gm Sodium Chloride 0.9% [Normal Saline] 100 ml IV Q8H 02/28/17 Dinner Full Liquid Diet [DIET] 03/01/17 08:58 Benzocaine/Cetylpyrd/Menthol [Cepacol Sore Throat] 1 lozenge MUCMEM Q2HR PRN 03/01/17 09:00 STREP PNEUMONIAE ANTIGEN [MREF] Routine Tbo-Filgrastim [Granix] 480 mcg SUBCUT DAILY 03/01/17 11:00 Dextrose 5%-0.9% NaCl [Dextrose 5%-Normal Saline] 1,000 ml IV ASDIRECTED 03/02/17 05:00 BASIC METABOLIC PANEL,BMP [CHEM] DAILY CBC WITH AUTO DIFF [HEME] DAILY MAGNESIUM [CHEM] DAILY 03/03/17 07:00 CBC W/O DIFF,HEMOGRAM [HEME] MOTH@0700 03/06/17 07:00 CBC W/O DIFF,HEMOGRAM [HEME] MOTH@0700 03/10/17 07:00 CBC W/O DIFF,HEMOGRAM [HEME] MOTH@0700 03/13/17 07:00 CBC W/O DIFF,HEMOGRAM [HEME] MOTH@0700 03/17/17 07:00 CBC W/O DIFF,HEMOGRAM [HEME] MOTH@0700 03/20/17 07:00 CBC W/O DIFF,HEMOGRAM [HEME] MOTH@0700 - Plan Plan:: Impression: Acute neurtopenia, s/p CTX Acute respiratory distress with hypoxia, resolved. 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 Query Infiltrate cf URI Video swallow without obstruction, mild dysfunction noted in area where patient describes pain. 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 DVT/GI prophylaxis SW/OT/PT re: home health Will need hailey reschedule ONC appt with Dr Medel. DNR/DNI LOS likely will be beyond 96 hours
[2017-03-01] MEDS ORDERED: Lidocaine 2% Viscous Solution 100 ML Bottle PO PRN (15:15)
[2017-03-01] MEDS: Levofloxacin/Dextrose 5%-Water 750 MG in Premix Bag 1 BAG IV SCH (15:43)
[2017-03-01] MEDS: Benzocaine/Cetylpyridinium/Menthol Lozenge MUCMEM PRN (19:19)
[2017-03-01] MEDS ORDERED: Magnesium Hydroxide 400 MG/5 ML Susp 30 ML Cup PO ONE (22:03)
[2017-03-02] MEDS: Piperacillin/Tazobactam 4.5 GM in Sodium Chloride 0.9% 100 ML IV SCH ×2 (02:45→09:52)
[2017-03-02] MEDS: Dextrose 5%-0.9% NaCl 1,000 ML IV SCH (02:46)
[2017-03-02] MEDS: methylPREDNISolone Sodium Succinate 40 MG/1 ML SDV IVPUSH SCH (06:17)
[2017-03-02] MEDS: Levalbuterol HCl 1.25 MG/3 ML Neb NEB SCH ×4 (06:34→21:12)
[2017-03-02] MEDS ORDERED: Lidocaine 2% Viscous Solution 15 ML Cup PO PRN (08:15)
[2017-03-02] MEDS: Saccharomyces Boulardii (Probiotic) 250 MG Cap PO SCH (09:52)
[2017-03-02] MEDS: Metoclopramide 10 MG/2 ML SDV IVPUSH SCH ×3 (09:52→21:42)
[2017-03-02] MEDS: Oseltamivir 75 MG Cap PO SCH ×2 (09:52→21:42)
--- NOTE | 2017-03-02 16:20 | PCM.PN ---
- General Info Date of Service: 03/02/17 Subjective Update: Pt reports continued cough and trouble with swalling. Has orthopnea. Does not report prior history of CHF, and has not had any echocardiogram that he can recall. - Review of Systems General: Denies: Fever Pulmonary: Reports: cough, sputum. Denies: shortness of breath Cardiovascular: Reports: Orthopnea, Other (epigastric pain with swallowing.) - Patient Data Vitals - most recent: Last Vital Signs Temp 37.5 C 03/02/17 09:20 Pulse 80 03/02/17 09:21 Resp 22 H 03/02/17 09:20 BP 114/81 03/02/17 09:21 Pulse Ox 93 L 03/02/17 10:11 Weight - most recent: 92.533 kg I&O - last 24 hours: Intake & Output 03/02/17 03/02/17 03/02/17 06:59 14:59 22:59 Intake Total 2967 0 Output Total 875 Balance 2092 0 Lab Results last 24 hrs: Laboratory Results - last 24 hr 03/02/17 03/02/17 Range/Units 06:28 06:28 WBC 0.20 L* (4.23-9.07) K/mm3 RBC 4.60 L (4.63-6.08) M/mm3 Hgb 12.8 L (13.7-17.5) gm/L Hct 38.5 L (40.1-51.0) % MCV 83.7 (79.0-92.2) fl MCH 27.8 (25.7-32.2) pg MCHC 33.2 (32.2-35.5) g/dl RDW Std Deviation 42.9 (35.1-43.9) fL Plt Count 46 L (163-337) K/mm3 MPV 9.6 (9.4-12.3) fl Neut % (Auto) 50.0 (34.0-67.9) % Lymph % (Auto) 20.0 L (21.8-53.1) % Ceiba % (Auto) 0.0 L (5.3-12.2) % Eos % (Auto) 10.0 H (0.8-7.0) Baso % (Auto) 5.0 H (0.1-1.2) % Neut # (Auto) 0.10 L (1.78-5.38) K/mm3 Lymph # (Auto) 0.04 L (1.32-3.57) K/mm3 Ceiba # (Auto) 0 L (0.30-0.82) K/mm3 Eos # (Auto) 0.02 L (0.04-0.54) K/mm3 Baso # (Auto) 0.01 (0.01-0.08) K/mm3 Manual Slide Review Abnormal smear Sodium 132 L (136-145) mEq/L Potassium 4.1 (3.5-5.1) mEq/L Chloride 98 (98-107) mEq/L Carbon Dioxide 26 (21-32) mEq/L Anion Gap 12.1 (5-15) BUN 14 (7-18) mg/dL Creatinine 0.9 (0.7-1.3) mg/dL Est Cr Clr Drug Dosing 104.02 mL/min Estimated GFR (MDRD) > 60 (>60) mL/min BUN/Creatinine Ratio 15.6 (14-18) Glucose 104 (74-106) mg/dL Calcium 8.6 (8.5-10.1) mg/dL Magnesium 1.8 (1.8-2.4) mg/dl Med Orders - Current: Current Medications Acetaminophen (Tylenol) 650 mg PO Q6H PRN PRN Reason: Fever Last Admin: 03/01/17 09:13 Dose: 650 mg Albuterol (Proventil Neb Soln) 2.5 mg NEB Q4H PRN PRN Reason: Shortness of Breath Benzocaine/Menthol (Cepacol Sore Throat) 1 lozenge MUCMEM Q2HR PRN PRN Reason: Sore Throat Last Admin: 03/01/17 19:19 Dose: 1 lozenge Diphenhydr/Magaldrate/Simeth/Lidoca (First-Mouthwash Blm Susp) 30 ml PO ACBED PRN PRN Reason: Sore Throat Promethazine HCl 12.5 mg/ (Sodium Chloride) 50.5 mls @ 100 mls/hr IV Q6H PRN PRN Reason: Nausea/Vomiting Piperacillin Sod/Tazobactam (Sod 4.5 gm/ Sodium Chloride) 100 mls @ 25 mls/hr IV Q8H [facility] Last Admin: 03/02/17 09:52 Dose: 25 mls/hr Levofloxacin/Dextrose 750 mg/ (Premix) 150 mls @ 100 mls/hr IV Q24H [facility] Last Admin: 03/01/17 15:43 Dose: 100 mls/hr Levalbuterol HCl (Xopenex) 1.25 mg NEB QIDRT [facility] Last Admin: 03/02/17 10:10 Dose: 1.25 mg Lidocaine HCl (Xylocaine 2% Viscous) 15 ml PO ASDIRECTED PRN PRN Reason: Sore Throat Methylprednisolone Sodium Succinate (Solu-Medrol) 40 mg IVPUSH Q12H [facility] Last Admin: 03/02/17 06:17 Dose: 40 mg Metoclopramide HCl (Reglan) 10 mg IVPUSH Q6H [facility] Last Admin: 03/02/17 09:52 Dose: 10 mg Ondansetron HCl (Zofran) 4 mg IVPUSH Q8H PRN PRN Reason: Nausea/Vomiting Oseltamivir Phosphate (Tamiflu) 75 mg PO BID [facility] Stop: 03/04/17 21:01 Last Admin: 03/02/17 09:52 Dose: 75 mg Saccharomyces Boulardii (Florastor) 250 mg PO DAILY [facility] Last Admin: 03/02/17 09:52 Dose: 250 mg Tbo-Filgrastim (Granix) 480 mcg SUBCUT DAILY [facility] Last Admin: 03/02/17 09:53 Dose: 480 mcg Temazepam (Restoril) 15 mg PO BEDTIME PRN PRN Reason: Insomnia Discontinued Medications Barium Sulfate (E-Z-Paste) 454 gm PO ONETIME ONE Stop: 02/28/17 09:59 Last Admin: 02/28/17 14:42 Dose: Not Given Barium Sulfate (E-Z-Hd) 340 gm PO ONETIME ONE Stop: 02/28/17 09:59 Last Admin: 02/28/17 14:42 Dose: Not Given Barium Sulfate (Liquid E-Z Paque) 355 ml PO PREPRO ONE Stop: 02/28/17 09:59 Last Admin: 02/28/17 14:43 Dose: Not Given Enoxaparin Sodium (Lovenox) 40 mg SUBCUT DAILY [facility] Sodium Chloride (Normal Saline) 1,000 mls @ 150 mls/hr IV ONETIME ONE Stop: 02/27/17 20:19 Last Admin: 02/27/17 14:21 Dose: 150 mls/hr Lactated Ringer's (Ringers, Lactated) 1,000 mls @ 999 mls/hr IV Q1H [facility] Stop: 02/27/17 20:44 Last Admin: 02/27/17 20:53 Dose: 999 mls/hr Lactated Ringer's (Ringers, Lactated) 1,000 mls @ 125 mls/hr IV ASDIRECTED [facility] Last Admin: 02/27/17 21:58 Dose: 125 mls/hr Levofloxacin/Dextrose 750 mg/ (Premix) 150 mls @ 100 mls/hr IV Q24H [facility] Piperacillin Sod/Tazobactam (Sod 4.5 gm/ Sodium Chloride) 100 mls @ 200 mls/hr IV ONETIME ONE Stop: 02/28/17 10:59 Last Admin: 02/28/17 11:26 Dose: 200 mls/hr Sodium Chloride (Normal Saline) 1,000 mls @ 125 mls/hr IV ASDIRECTED [facility] Last Admin: 03/01/17 05:16 Dose: 125 mls/hr Dextrose/Sodium Chloride (Dextrose 5%-Normal Saline) 1,000 mls @ 125 mls/hr IV ASDIRECTED [facility] Last Admin: 03/02/17 02:46 Dose: 125 mls/hr Lidocaine HCl (Xylocaine 2% Viscous) 15 ml PO ASDIRECTED PRN PRN Reason: Sore Throat Magnesium Hydroxide (Milk Of Magnesia) 30 ml PO ONETIME ONE Stop: 03/01/17 22:04 Last Admin: 03/01/17 23:46 Dose: Not Given - Exam Physical Findings Comments:: Vitals: as above General: alert and oriented. Appears weak and continues to cough while interviewing Psych: calm and cooperative HEENT: normocephalic, atraumatic. EOMI Cardiac: Normal S1, S2. regular rate. No murmurs rubs, or gallops. No JVD noted. 1-2+ pitting pedal edema Lungs: CTAB. good air entry bilaterally. Abd: Soft, NT/ND. No HSM noted. Skin: no new visible rashes or purpura noted Neuro: CN grossly intact. Strength intact and adequate bilaterally. - Problem List & Annotations (1) Neutropenia SNOMED Code(s): 959561144 Code(s): D70.9 - NEUTROPENIA, UNSPECIFIED Status: Acute Current Visit: Yes Qualifiers: Neutropenia type: secondary to cancer chemotherapy Qualified Code(s): D70.1 - Agranulocytosis secondary to cancer chemotherapy (2) Acute bronchitis SNOMED Code(s): 46629105 Code(s): J20.9 - ACUTE BRONCHITIS, UNSPECIFIED Status: Acute Current Visit: Yes Qualifiers: Bronchitis organism: other organism Qualified Code(s): J20.8 - Acute bronchitis due to other specified organisms (3) Dehydration SNOMED Code(s): 35374651 Code(s): E86.0 - DEHYDRATION Status: Acute Current Visit: Yes (4) Hypoxia SNOMED Code(s): 899421947, 767213408 Code(s): R09.02 - HYPOXEMIA Status: Acute Current Visit: Yes (5) Influenza SNOMED Code(s): 9989500 Code(s): J11.1 - FLU DUE TO UNIDENTIFIED INFLUENZA VIRUS W OTH RESP MANIFEST Status: Acute Current Visit: Yes - Problem List Review Problem List Initiated/Reviewed/Updated: Yes - My Orders Last 24 Hours: My Active Orders 03/02/17 13:23 Acapella [RT Chest Physiotherapy] [RC] Q6HR 03/02/17 13:28 CULTURE SPUTUM + SMEAR [RM] Routine - Plan Plan:: Acute neurtopenia. Due to recent chemotherapy as well as acute viral infection. Will keep on Neupogen until his white count improves. Continue contact and respiratory precautions as needed. We will discontinue his empiric antibiotics as they could be worsening his neutropenia as well. There is no evidence of acute bacterial superinfection. Patient reports that his cough is improved. I asked him to let us know if it suddenly worsens which could herald another bacterial superinfection is taking place. Will need to reschedule ONC appt with Dr Medel. Acute respiratory distress with hypoxia, resolved. Influenza B infection. Continue Tamiflu. 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 Patient has completed one of 4 cycles of chemotherapy. Difficulty swallowing after RTX to thorax - Video swallow without obstruction, mild dysfunction noted in area where patient describes pain. 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
[2017-03-02] MEDS: Levofloxacin/Dextrose 5%-Water 750 MG in Premix Bag 1 BAG IV SCH (16:57)
[2017-03-02] MEDS ORDERED: Bisacodyl 5 MG Tab PO PRN (18:34)
[2017-03-02] MEDS: Sodium Chloride 0.9% 1,000 ML IV SCH (22:51)
[2017-03-03] MEDS: Metoclopramide 10 MG/2 ML SDV IVPUSH SCH ×4 (04:50→20:34)
[2017-03-03] MEDS: Levalbuterol HCl 1.25 MG/3 ML Neb NEB SCH ×4 (06:20→20:27)
[2017-03-03] MEDS: Pantoprazole 40 MG Vial IVPUSH SCH ×2 (06:32→09:17)
[2017-03-03] MEDS ORDERED: Loperamide 1 MG/5 ML Soln 5 ML UD Cup PO PRN (07:58)
[2017-03-03] MEDS ORDERED: Metoprolol Tartrate 5 MG/5 ML SDV IVPUSH ONE ×3 (08:30→17:45)
[2017-03-03] MEDS ORDERED: Vancomycin 1 GM, Vancomycin 250 MG in Sodium Chloride 0.9% 250 ML IV SCH (08:30)
[2017-03-03] MEDS ORDERED: Meropenem 1 GM in Sodium Chloride 0.9% 100 ML IV SCH (08:30)
[2017-03-03] MEDS: Metoprolol Tartrate 5 MG/5 ML SDV IVPUSH PRN ×2 (08:51→09:03)
[2017-03-03] MEDS: Oseltamivir 75 MG Cap PO SCH ×2 (09:17→20:34)
[2017-03-03] MEDS ORDERED: Potassium Chloride 10% 20 MEQ/15 ML Soln 30 ML UD Cup PO SCH (10:00)
[2017-03-03] MEDS ORDERED: Diltiazem 25 MG/5 ML SDV IVPUSH ONE (10:39)
[2017-03-03] MEDS ORDERED: Magnesium Sulfate/Water 2 GM in Premix Bag 1 BAG IV ONE (11:00)
[2017-03-03] MEDS: Potassium Chloride 10 MEQ in Premix Bag 1 BAG IV SCH ×4 (11:03→14:46)
[2017-03-03] MEDS: Diltiazem 100 MG in Sodium Chloride 0.9% 100 ML IV SCH ×2 (11:07→17:41)
[2017-03-03] MEDS: Sodium Chloride 0.9% 1,000 ML IV SCH (11:16)
[2017-03-03] MEDS: Meropenem 1 GM in Sodium Chloride 0.9% 100 ML IV SCH ×2 (12:12→17:40)
--- NOTE | 2017-03-03 13:42 | PCM.PN ---
- General Info Date of Service: 03/03/17 Subjective Update: The patient had a difficult evening. He had development of diarrhea yesterday. C. difficile came back negative. He denied any new abdominal complaints other than the diarrhea. His shortness of breath and cough are unchanged from yesterday. He also developed new-onset atrial fibrillation with RVR this morning , and had to be moved to the ICU for rate control. - Review of Systems General: Denies: Fever Pulmonary: Reports: cough, sputum Cardiovascular: Reports: Orthopnea. Denies: Chest Pain Gastrointestinal: Reports: Diarrhea. Denies: Abdominal pain, Nausea - Patient Data Vitals - most recent: Last Vital Signs Temp 36.7 C 03/03/17 12:49 Pulse 113 H 03/03/17 12:49 Resp 28 H 03/03/17 12:49 BP 92/56 L 03/03/17 12:49 Pulse Ox 91 L 03/03/17 12:49 Weight - most recent: 89.902 kg I&O - last 24 hours: Intake & Output 03/02/17 03/03/17 03/03/17 22:59 06:59 14:59 Intake Total 1020 668 400 Balance 1020 668 400 Lab Results last 24 hrs: Laboratory Results - last 24 hr 03/03/17 03/03/17 03/03/17 Range/Units 01:30 04:35 04:35 WBC 0.05 L* (4.23-9.07) K/mm3 RBC 4.61 L (4.63-6.08) M/mm3 Hgb 13.1 L (13.7-17.5) gm/L Hct 38.2 L (40.1-51.0) % MCV 82.9 (79.0-92.2) fl MCH 28.4 (25.7-32.2) pg MCHC 34.3 (32.2-35.5) g/dl RDW Std Deviation 41.9 (35.1-43.9) fL Plt Count 32 L (163-337) K/mm3 MPV 9.5 (9.4-12.3) fl Sodium 132 L (136-145) mEq/L Potassium 3.6 (3.5-5.1) mEq/L Chloride 97 L (98-107) mEq/L Carbon Dioxide 26 (21-32) mEq/L Anion Gap 12.6 (5-15) BUN 18 (7-18) mg/dL Creatinine 0.7 (0.7-1.3) mg/dL Est Cr Clr Drug Dosing 133.74 mL/min Estimated GFR (MDRD) > 60 (>60) mL/min BUN/Creatinine Ratio 25.7 H (14-18) Glucose 99 (74-106) mg/dL Calcium 8.6 (8.5-10.1) mg/dL Magnesium 1.8 (1.8-2.4) mg/dl Total Bilirubin 1.3 H (0.2-1.0) mg/dL AST 14 L (15-37) U/L ALT 41 (16-63) U/L Alkaline Phosphatase 60 (46-116) U/L Total Protein 6.2 L (6.4-8.2) g/dl Albumin 2.5 L (3.4-5.0) g/dl Globulin 3.7 gm/dL Albumin/Globulin Ratio 0.7 L (1-2) TSH 3rd Generation (0.358-3.74) uIU/mL C.difficile [id number] Presumptive negative C. difficile Tox (PCR) Negative 03/03/17 03/03/17 Range/Units 04:38 04:38 WBC (4.23-9.07) K/mm3 RBC (4.63-6.08) M/mm3 Hgb (13.7-17.5) gm/L Hct (40.1-51.0) % MCV (79.0-92.2) fl MCH (25.7-32.2) pg MCHC (32.2-35.5) g/dl RDW Std Deviation (35.1-43.9) fL Plt Count (163-337) K/mm3 MPV (9.4-12.3) fl Sodium (136-145) mEq/L Potassium (3.5-5.1) mEq/L Chloride (98-107) mEq/L Carbon Dioxide (21-32) mEq/L Anion Gap (5-15) BUN (7-18) mg/dL Creatinine (0.7-1.3) mg/dL Est Cr Clr Drug Dosing mL/min Estimated GFR (MDRD) (>60) mL/min BUN/Creatinine Ratio (14-18) Glucose (74-106) mg/dL Calcium (8.5-10.1) mg/dL Magnesium 1.8 (1.8-2.4) mg/dl Total Bilirubin (0.2-1.0) mg/dL AST (15-37) U/L ALT (16-63) U/L Alkaline Phosphatase (46-116) U/L Total Protein (6.4-8.2) g/dl Albumin (3.4-5.0) g/dl Globulin gm/dL Albumin/Globulin Ratio (1-2) TSH 3rd Generation 1.017 (0.358-3.74) uIU/mL C.difficile [id number]-[id number] C. difficile Tox (PCR) Ryan Results last 24 hrs: Microbiology 03/03/17 04:45 Gram Stain - Final Sputum - Expectorated Med Orders - Current: Current Medications Acetaminophen (Tylenol) 650 mg PO Q6H PRN PRN Reason: Fever Last Admin: 03/01/17 09:13 Dose: 650 mg Albuterol (Proventil Neb Soln) 2.5 mg NEB Q4H PRN PRN Reason: Shortness of Breath Benzocaine/Menthol (Cepacol Sore Throat) 1 lozenge MUCMEM Q2HR PRN PRN Reason: Sore Throat Last Admin: 03/01/17 19:19 Dose: 1 lozenge Bisacodyl (Dulcolax) 10 mg PO BID PRN PRN Reason: Constipation Diphenhydr/Magaldrate/Simeth/Lidoca (First-Mouthwash Blm Susp) 30 ml PO ACBED PRN PRN Reason: Sore Throat Promethazine HCl 12.5 mg/ (Sodium Chloride) 50.5 mls @ 100 mls/hr IV Q6H PRN PRN Reason: Nausea/Vomiting Sodium Chloride (Normal Saline) 1,000 mls @ 80 mls/hr IV ASDIRECTED [facility] Last Admin: 03/03/17 11:16 Dose: 80 mls/hr Meropenem 1 gm/ Sodium (Chloride) 100 mls @ 200 mls/hr IV Q8H [facility] Last Admin: 03/03/17 12:12 Dose: 200 mls/hr Diltiazem HCl 100 mg/ Sodium (Chloride) 100 mls @ 5 mls/hr IV TITRATE [facility]; 5 MG /HR PRN Reason: Protocol Last Titration: 03/03/17 12:46 Dose: 15 mg/hr, 15 mls/hr Potassium Chloride 10 meq/ (Premix) 100 mls @ 100 mls/hr IV Q1H [facility] Stop: 03/03/17 14:44 Last Admin: 03/03/17 13:22 Dose: 100 mls/hr Vancomycin HCl 1 gm/Vancomycin HCl 250 mg/ Sodium Chloride 250 mls @ 250 mls/ hr IV Q12H [facility] Levalbuterol HCl (Xopenex) 1.25 mg NEB QIDRT [facility] Last Admin: 03/03/17 09:56 Dose: 1.25 mg Lidocaine HCl (Xylocaine 2% Viscous) 15 ml PO ASDIRECTED PRN PRN Reason: Sore Throat Loperamide HCl (Imodium) 2 mg PO Q4H PRN PRN Reason: Diarrhea Metoclopramide HCl (Reglan) 10 mg IVPUSH Q6H [facility] Last Admin: 03/03/17 09:17 Dose: 10 mg Ondansetron HCl (Zofran) 4 mg IVPUSH Q8H PRN PRN Reason: Nausea/Vomiting Oseltamivir Phosphate (Tamiflu) 75 mg PO BID [facility] Stop: 03/04/17 21:01 Last Admin: 03/03/17 09:17 Dose: 75 mg Pantoprazole Sodium (Protonix Iv) 40 mg IVPUSH DAILY [facility] Last Admin: 03/03/17 09:17 Dose: 40 mg Tbo-Filgrastim (Granix) 480 mcg SUBCUT DAILY [facility] Last Admin: 03/03/17 09:17 Dose: 480 mcg Temazepam (Restoril) 15 mg PO BEDTIME PRN PRN Reason: Insomnia Vancomycin HCl (Pharmacy To Dose - Vancomycin) 1 dose .XX ASDIRECTED [facility] Discontinued Medications Barium Sulfate (E-Z-Paste) 454 gm PO ONETIME ONE Stop: 02/28/17 09:59 Last Admin: 02/28/17 14:42 Dose: Not Given Barium Sulfate (E-Z-Hd) 340 gm PO ONETIME ONE Stop: 02/28/17 09:59 Last Admin: 02/28/17 14:42 Dose: Not Given Barium Sulfate (Liquid E-Z Paque) 355 ml PO PREPRO ONE Stop: 02/28/17 09:59 Last Admin: 02/28/17 14:43 Dose: Not Given Diltiazem HCl (Diltiazem) 10 mg IVPUSH ONETIME ONE Stop: 03/03/17 10:40 Last Admin: 03/03/17 11:06 Dose: 10 mg Enoxaparin Sodium (Lovenox) 40 mg SUBCUT DAILY [facility] Sodium Chloride (Normal Saline) 1,000 mls @ 150 mls/hr IV ONETIME ONE Stop: 02/27/17 20:19 Last Admin: 02/27/17 14:21 Dose: 150 mls/hr Lactated Ringer's (Ringers, Lactated) 1,000 mls @ 999 mls/hr IV Q1H [facility] Stop: 02/27/17 20:44 Last Admin: 02/27/17 20:53 Dose: 999 mls/hr Lactated Ringer's (Ringers, Lactated) 1,000 mls @ 125 mls/hr IV ASDIRECTED [facility] Last Admin: 02/27/17 21:58 Dose: 125 mls/hr Levofloxacin/Dextrose 750 mg/ (Premix) 150 mls @ 100 mls/hr IV Q24H [facility] Piperacillin Sod/Tazobactam (Sod 4.5 gm/ Sodium Chloride) 100 mls @ 200 mls/hr IV ONETIME ONE Stop: 02/28/17 10:59 Last Admin: 02/28/17 11:26 Dose: 200 mls/hr Piperacillin Sod/Tazobactam (Sod 4.5 gm/ Sodium Chloride) 100 mls @ 25 mls/hr IV Q8H [facility] Last Admin: 03/02/17 09:52 Dose: 25 mls/hr Levofloxacin/Dextrose 750 mg/ (Premix) 150 mls @ 100 mls/hr IV Q24H [facility] Last Admin: 03/02/17 16:57 Dose: Not Given Sodium Chloride (Normal Saline) 1,000 mls @ 125 mls/hr IV ASDIRECTED [facility] Last Admin: 03/01/17 05:16 Dose: 125 mls/hr Dextrose/Sodium Chloride (Dextrose 5%-Normal Saline) 1,000 mls @ 125 mls/hr IV ASDIRECTED [facility] Last Admin: 03/02/17 02:46 Dose: 125 mls/hr Meropenem 1 gm/ Sodium (Chloride) 100 mls @ 200 mls/hr IV Q8H [facility] Vancomycin HCl 1 gm/Vancomycin HCl 250 mg/ Sodium Chloride 250 mls @ 250 mls/ hr IV Q12H [facility] Last Admin: 03/03/17 10:32 Dose: 250 mls/hr Magnesium Sulfate 2 gm/ Premix 50 mls @ 25 mls/hr IV ONETIME ONE Stop: 03/03/17 12:59 Last Admin: 03/03/17 11:05 Dose: 25 mls/hr Lidocaine HCl (Xylocaine 2% Viscous) 15 ml PO ASDIRECTED PRN PRN Reason: Sore Throat Magnesium Hydroxide (Milk Of Magnesia) 30 ml PO ONETIME ONE Stop: 03/01/17 22:04 Last Admin: 03/01/17 23:46 Dose: Not Given Methylprednisolone Sodium Succinate (Solu-Medrol) 40 mg IVPUSH Q12H [facility] Last Admin: 03/02/17 06:17 Dose: 40 mg Metoprolol Tartrate (Lopressor) 5 mg IVPUSH ONETIME ONE Stop: 03/03/17 08:31 Last Admin: 03/03/17 08:38 Dose: 5 mg Metoprolol Tartrate (Lopressor) 5 mg IVPUSH Q5M PRN PRN Reason: for heart rate sustaining >120 Stop: 03/03/17 09:06 Last Admin: 03/03/17 09:03 Dose: 5 mg Potassium Chloride (Potassium Chloride) 40 meq PO TID [facility] Stop: 03/03/17 15:01 Saccharomyces Boulardii (Florastor) 250 mg PO DAILY [facility] Last Admin: 03/02/17 09:52 Dose: 250 mg - Exam Physical Findings Comments:: Vitals: as above General: alert and oriented. Appears weak. Psych: calm and cooperative HEENT: normocephalic, atraumatic. EOMI Cardiac: Normal S1, S2. irregular rate. No murmurs rubs, or gallops. No JVD noted. 1-2+ pitting pedal edema Lungs: Coarse upper airway sounds but no significant wheezing noted. Abd: Soft, NT/ND. No HSM noted. Skin: no new visible rashes or purpura noted Neuro: CN grossly intact. Strength intact and adequate bilaterally. EKG INTERPRETATION Rhythm: a-fib Rate (beats/min): 180 - Problem List & Annotations (1) Neutropenia SNOMED Code(s): 003588121 Code(s): D70.9 - NEUTROPENIA, UNSPECIFIED Status: Acute Current Visit: Yes Qualifiers: Neutropenia type: secondary to cancer chemotherapy Qualified Code(s): D70.1 - Agranulocytosis secondary to cancer chemotherapy (2) Acute bronchitis SNOMED Code(s): 14315407 Code(s): J20.9 - ACUTE BRONCHITIS, UNSPECIFIED Status: Acute Current Visit: Yes Qualifiers: Bronchitis organism: other organism Qualified Code(s): J20.8 - Acute bronchitis due to other specified organisms (3) Dehydration SNOMED Code(s): 83839147 Code(s): E86.0 - DEHYDRATION Status: Acute Current Visit: Yes (4) Hypoxia SNOMED Code(s): 662897501, 150922809 Code(s): R09.02 - HYPOXEMIA Status: Acute Current Visit: Yes (5) Influenza SNOMED Code(s): 1492927 Code(s): J11.1 - FLU DUE TO UNIDENTIFIED INFLUENZA VIRUS W OTH RESP MANIFEST Status: Acute Current Visit: Yes (6) Atrial fibrillation with RVR SNOMED Code(s): 885796036990037 Code(s): I48.91 - UNSPECIFIED ATRIAL FIBRILLATION Status: Acute Current Visit: Yes - Problem List Review Problem List Initiated/Reviewed/Updated: Yes - My Orders Last 24 Hours: My Active Orders 03/02/17 13:23 Acapella [RT Chest Physiotherapy] [RC] Q6HR 03/02/17 17:00 CULTURE SPUTUM + SMEAR [RM] Routine 03/02/17 18:34 Bisacodyl [Dulcolax] 10 mg PO BID PRN 03/02/17 22:45 Sodium Chloride 0.9% [Normal Saline] 1,000 ml IV ASDIRECTED 03/03/17 07:00 Echo Comp wo Cont [US] Timed 03/03/17 07:58 Loperamide [Imodium] 2 mg PO Q4H PRN 03/03/17 08:00 Vancomycin Pharmacy to Dose [Pharmacy to Dose - Vancomycin] 1 dose .XX ASDIRECTED 03/03/17 08:28 EKG Documentation Completion [RC] STAT 03/03/17 08:46 Transfer Patient (Change bed) [ADT] Routine 03/03/17 09:30 Meropenem [Merrem] 1 gm Sodium Chloride 0.9% [Normal Saline] 100 ml IV Q8H 03/03/17 09:54 Ambulate [RC] QID Antiembolic Devices [RC] PER UNIT ROUTINE Sequential Compression Device [OM.PC] Routine 03/03/17 09:57 Patient Status [ADT] Routine 03/03/17 10:45 Diltiazem [Cardizem] 100 mg Sodium Chloride 0.9% [Normal Saline] 100 ml IV TITRATE Potassium Chloride [KCl 10 MEQ in Water 100 ML] 10 meq Premix Bag 1 bag IV Q1H 03/03/17 22:30 Vancomycin 1 gm Vancomycin 250 mg Sodium Chloride 0.9% [Normal Saline] 250 ml IV Q12H 03/04/17 05:00 Communication Order [RC] ASDIRECTED 03/04/17 05:11 BASIC METABOLIC PANEL,BMP [CHEM] AM 03/04/17 09:00 MAGNESIUM [CHEM] DAILY 03/04/17 22:00 VANCOMYCIN TROUGH [CHEM] Stat 03/05/17 05:11 BASIC METABOLIC PANEL,BMP [CHEM] AM 03/06/17 05:11 BASIC METABOLIC PANEL,BMP [CHEM] AM - Plan Plan:: Atrial fibrillation with RVR. [id number] score of 0. Likely do to his lung malignancy, recent chemotherapy and radiation, and ongoing diarrhea and influenza infection. Anticoagulation is not indicated, and furthermore it is contraindicated due to thrombocytopenia. Patient received 3 doses of IV metoprolol with improvement in his rates from 190s to 130s. Patient was later transferred to the ICU for further titration of his heart rate with diltiazem drip with bolus. Acute neurtopenia, and thrombocytopenia. Due to recent chemotherapy as well as acute viral infection. Will keep on Neupogen until his white count improves. Continue contact and respiratory precautions as needed. Case discussed with his oncologist Dr. Medel. He recommends continuing him on broad-spectrum empiric antibiotics with vancomycin and meropenem. Acute respiratory distress with hypoxia, resolved. Patient is fluid overloaded on exam. However he is not eating anything so we will hold off on any diuresis. Influenza B infection. Continue Tamiflu. 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 Patient has completed one of 4 cycles of chemotherapy. Difficulty swallowing after RTX to thorax - Video swallow without obstruction, mild dysfunction noted in area where patient describes pain. Greater than 10 pound wgt loss, unable to swallow since recent radiation. Dr. Medel states this should improve in couple weeks. Dehydration, given IVF. 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 Will have to avoid heparin products.
[2017-03-03] MEDS: methylPREDNISolone Sodium Succinate 40 MG/1 ML SDV IVPUSH SCH (14:05)
[2017-03-03] MEDS ORDERED: Meropenem 1 GM SDV ONE (17:33)
[2017-03-03] MEDS ORDERED: Metoprolol Tartrate 5 MG/5 ML SDV IVPUSH PRN (18:31)
[2017-03-03] MEDS: Vancomycin 1 GM, Vancomycin 250 MG in Sodium Chloride 0.9% 250 ML IV SCH (22:37)
[2017-03-04] MEDS: Meropenem 1 GM in Sodium Chloride 0.9% 100 ML IV SCH ×3 (01:33→16:39)
[2017-03-04] MEDS: Diltiazem 100 MG in Sodium Chloride 0.9% 100 ML IV SCH ×3 (01:35→21:34)
[2017-03-04] MEDS: Metoclopramide 10 MG/2 ML SDV IVPUSH SCH ×2 (02:06→09:16)
[2017-03-04] MEDS: Levalbuterol HCl 1.25 MG/3 ML Neb NEB SCH ×2 (05:59→12:07)
[2017-03-04] MEDS ORDERED: Metoprolol Tartrate 5 MG/5 ML SDV ONE (06:12)
[2017-03-04] MEDS ORDERED: Metoprolol Tartrate 5 MG/5 ML SDV IVPUSH ONE (06:13)
[2017-03-04] MEDS ORDERED: Metoprolol Tartrate 5 MG/5 ML SDV IVPUSH PRN (06:13)
[2017-03-04] MEDS: HYDROmorphone 0.5 MG/0.5 ML Syringe IVPUSH PRN (09:20)
[2017-03-04] MEDS: Oseltamivir 75 MG Cap PO SCH (09:21)
[2017-03-04] MEDS: methylPREDNISolone Sodium Succinate 40 MG/1 ML SDV IVPUSH SCH (09:22)
[2017-03-04] MEDS ORDERED: Levalbuterol HCl 1.25 MG/0.5 ML Neb ONE (09:24)
[2017-03-04] MEDS: Pantoprazole 40 MG Vial IVPUSH SCH (09:26)
[2017-03-04] MEDS: Vancomycin 1 GM, Vancomycin 250 MG in Sodium Chloride 0.9% 250 ML IV SCH (11:21)
--- NOTE | 2017-03-04 11:52 | PCM.PN ---
- General Info Date of Service: 03/04/17 Subjective Update: overnight the heart rates were well controlled with diltiazem drip except for one episode of heart rate to the 160s. He required one dose of IV metoprolol this morning, with improvement of his heart rates down to the 80s. He continues to deny any chest pain or palpitations. He does over any change in his shorts of breath or cough. She is to have his substernal burning sensation with swallowing which is constant. - Review of Systems General: Denies: Fever Pulmonary: Reports: shortness of breath, cough, sputum Cardiovascular: Reports: Chest Pain (same substernal burning, which is unchanged ) Gastrointestinal: Denies: Abdominal pain - Patient Data Vitals - most recent: Last Vital Signs Temp 36.7 C 03/04/17 09:00 Pulse 88 03/04/17 10:00 Resp 21 H 03/04/17 10:00 BP 108/75 03/04/17 10:00 Pulse Ox 93 L 03/04/17 10:00 Weight - most recent: 89.993 kg I&O - last 24 hours: Intake & Output 03/03/17 03/04/17 03/04/17 22:59 06:59 14:59 Intake Total 826 482 Output Total 450 Balance 376 482 Lab Results last 24 hrs: Laboratory Results - last 24 hr 03/04/17 03/04/17 03/04/17 Range/Units 05:50 05:50 05:50 WBC 0.06 L* (4.23-9.07) K/mm3 RBC 4.77 (4.63-6.08) M/mm3 Hgb 13.3 L (13.7-17.5) gm/L Hct 39.2 L (40.1-51.0) % MCV 82.2 (79.0-92.2) fl MCH 27.9 (25.7-32.2) pg MCHC 33.9 (32.2-35.5) g/dl RDW Std Deviation 41.9 (35.1-43.9) fL Plt Count 27 L (163-337) K/mm3 MPV 10.4 (9.4-12.3) fl Neutrophils % (Manual) Not Reportable Band Neutrophils % Not Reportable Lymphocytes % (Manual) Not Reportable Monocytes % (Manual) Not Reportable Eosinophils % (Manual) Not Reportable Basophils % (Manual) Not Reportable Differential Comment See note Platelet Estimate See note RBC Morph Comment Normal Sodium 132 L (136-145) mEq/L Potassium 3.9 (3.5-5.1) mEq/L Chloride 99 (98-107) mEq/L Carbon Dioxide 21 (21-32) mEq/L Anion Gap 15.9 H (5-15) BUN 29 H (7-18) mg/dL Creatinine 0.8 (0.7-1.3) mg/dL Est Cr Clr Drug Dosing 117.02 mL/min Estimated GFR (MDRD) > 60 (>60) mL/min BUN/Creatinine Ratio 36.3 H (14-18) Glucose 107 H (74-106) mg/dL Calcium 8.5 (8.5-10.1) mg/dL Magnesium 2.2 (1.8-2.4) mg/dl Ryan Results last 24 hrs: Microbiology 03/03/17 04:45 Gram Stain - Final Sputum - Expectorated Sputum Culture - Preliminary 03/03/17 01:30 Stool Culture - Preliminary Stool / Feces - Final - Final 03/01/17 09:00 Streptococcus pneumoniae Antigen (M - Final Urine - Bladder Med Orders - Current: Current Medications Acetaminophen (Tylenol) 650 mg PO Q6H PRN PRN Reason: Fever Last Admin: 03/01/17 09:13 Dose: 650 mg Albuterol (Proventil Hfa) 0 gm INH Q4H PRN PRN Reason: Shortness of Breath Benzocaine/Menthol (Cepacol Sore Throat) 1 lozenge MUCMEM Q2HR PRN PRN Reason: Sore Throat Last Admin: 03/01/17 19:19 Dose: 1 lozenge Bisacodyl (Dulcolax) 10 mg PO BID PRN PRN Reason: Constipation Diphenhydr/Magaldrate/Simeth/Lidoca (First-Mouthwash Blm Susp) 30 ml PO ACBED PRN PRN Reason: Sore Throat Hydromorphone HCl (Dilaudid) 0.5 mg IVPUSH Q2H PRN PRN Reason: Pain Promethazine HCl 12.5 mg/ (Sodium Chloride) 50.5 mls @ 100 mls/hr IV Q6H PRN PRN Reason: Nausea/Vomiting Meropenem 1 gm/ Sodium (Chloride) 100 mls @ 200 mls/hr IV Q8H [facility] Last Admin: 03/04/17 09:34 Dose: 200 mls/hr Diltiazem HCl 100 mg/ Sodium (Chloride) 100 mls @ 5 mls/hr IV TITRATE BELL; 5 MG /HR PRN Reason: Protocol Last Titration: 03/04/17 06:17 Dose: 10 mg/hr, 10 mls/hr Vancomycin HCl 1 gm/Vancomycin HCl 250 mg/ Sodium Chloride 250 mls @ 250 mls/ hr IV Q12H [facility] Last Admin: 03/03/17 22:37 Dose: 250 mls/hr Levalbuterol HCl (Xopenex) 1.25 mg NEB QIDRT [facility] Last Admin: 03/04/17 05:59 Dose: 1.25 mg Lidocaine HCl (Xylocaine 2% Viscous) 15 ml PO ASDIRECTED PRN PRN Reason: Sore Throat Loperamide HCl (Imodium) 2 mg PO Q4H PRN PRN Reason: Diarrhea Methylprednisolone Sodium Succinate (Solu-Medrol) 10 mg IVPUSH DAILY [facility] Last Admin: 03/04/17 09:22 Dose: 10 mg Metoclopramide HCl (Reglan) 10 mg IVPUSH Q6H [facility] Last Admin: 03/04/17 09:16 Dose: 10 mg Metoprolol Tartrate (Lopressor) 5 mg IVPUSH ONETIME PRN PRN Reason: Tachycardia Ondansetron HCl (Zofran) 4 mg IVPUSH Q8H PRN PRN Reason: Nausea/Vomiting Oseltamivir Phosphate (Tamiflu) 75 mg PO BID [facility] Stop: 03/04/17 21:01 Last Admin: 03/04/17 09:21 Dose: Not Given Pantoprazole Sodium (Protonix Iv) 40 mg IVPUSH DAILY [facility] Last Admin: 03/04/17 09:26 Dose: 40 mg Tbo-Filgrastim (Granix) 480 mcg SUBCUT DAILY [facility] Last Admin: 03/04/17 09:32 Dose: 480 mcg Temazepam (Restoril) 15 mg PO BEDTIME PRN PRN Reason: Insomnia Vancomycin HCl (Pharmacy To Dose - Vancomycin) 1 dose .XX ASDIRECTED [facility] Discontinued Medications Albuterol (Proventil Neb Soln) 2.5 mg NEB Q4H PRN PRN Reason: Shortness of Breath Barium Sulfate (E-Z-Paste) 454 gm PO ONETIME ONE Stop: 02/28/17 09:59 Last Admin: 02/28/17 14:42 Dose: Not Given Barium Sulfate (E-Z-Hd) 340 gm PO ONETIME ONE Stop: 02/28/17 09:59 Last Admin: 02/28/17 14:42 Dose: Not Given Barium Sulfate (Liquid E-Z Paque) 355 ml PO PREPRO ONE Stop: 02/28/17 09:59 Last Admin: 02/28/17 14:43 Dose: Not Given Diltiazem HCl (Diltiazem) 10 mg IVPUSH ONETIME ONE Stop: 03/03/17 10:40 Last Admin: 03/03/17 11:06 Dose: 10 mg Enoxaparin Sodium (Lovenox) 40 mg SUBCUT DAILY [facility] Sodium Chloride (Normal Saline) 1,000 mls @ 150 mls/hr IV ONETIME ONE Stop: 02/27/17 20:19 Last Admin: 02/27/17 14:21 Dose: 150 mls/hr Lactated Ringer's (Ringers, Lactated) 1,000 mls @ 999 mls/hr IV Q1H [facility] Stop: 02/27/17 20:44 Last Admin: 02/27/17 20:53 Dose: 999 mls/hr Lactated Ringer's (Ringers, Lactated) 1,000 mls @ 125 mls/hr IV ASDIRECTED [facility] Last Admin: 02/27/17 21:58 Dose: 125 mls/hr Levofloxacin/Dextrose 750 mg/ (Premix) 150 mls @ 100 mls/hr IV Q24H [facility] Piperacillin Sod/Tazobactam (Sod 4.5 gm/ Sodium Chloride) 100 mls @ 200 mls/hr IV ONETIME ONE Stop: 02/28/17 10:59 Last Admin: 02/28/17 11:26 Dose: 200 mls/hr Piperacillin Sod/Tazobactam (Sod 4.5 gm/ Sodium Chloride) 100 mls @ 25 mls/hr IV Q8H [facility] Last Admin: 03/02/17 09:52 Dose: 25 mls/hr Levofloxacin/Dextrose 750 mg/ (Premix) 150 mls @ 100 mls/hr IV Q24H [facility] Last Admin: 03/02/17 16:57 Dose: Not Given Sodium Chloride (Normal Saline) 1,000 mls @ 125 mls/hr IV ASDIRECTED [facility] Last Admin: 03/01/17 05:16 Dose: 125 mls/hr Dextrose/Sodium Chloride (Dextrose 5%-Normal Saline) 1,000 mls @ 125 mls/hr IV ASDIRECTED [facility] Last Admin: 03/02/17 02:46 Dose: 125 mls/hr Sodium Chloride (Normal Saline) 1,000 mls @ 80 mls/hr IV ASDIRECTED [facility] Last Admin: 03/03/17 11:16 Dose: 80 mls/hr Meropenem 1 gm/ Sodium (Chloride) 100 mls @ 200 mls/hr IV Q8H [facility] Vancomycin HCl 1 gm/Vancomycin HCl 250 mg/ Sodium Chloride 250 mls @ 250 mls/ hr IV Q12H [facility] Last Admin: 03/03/17 10:32 Dose: 250 mls/hr Magnesium Sulfate 2 gm/ Premix 50 mls @ 25 mls/hr IV ONETIME ONE Stop: 03/03/17 12:59 Last Admin: 03/03/17 11:05 Dose: 25 mls/hr Potassium Chloride 10 meq/ (Premix) 100 mls @ 100 mls/hr IV Q1H [facility] Stop: 03/03/17 14:44 Last Admin: 03/03/17 14:46 Dose: 100 mls/hr Levalbuterol HCl (Xopenex) Confirm Administered Dose 1.25 mg .ROUTE .STK-MED ONE Stop: 03/04/17 09:25 Last Admin: 03/04/17 09:42 Dose: 1.25 mg Lidocaine HCl (Xylocaine 2% Viscous) 15 ml PO ASDIRECTED PRN PRN Reason: Sore Throat Magnesium Hydroxide (Milk Of Magnesia) 30 ml PO ONETIME ONE Stop: 03/01/17 22:04 Last Admin: 03/01/17 23:46 Dose: Not Given Meropenem (Merrem) Confirm Administered Dose 1 gm .ROUTE .STK-MED ONE Stop: 03/03/17 17:34 Last Admin: 03/03/17 17:40 Dose: Not Given Methylprednisolone Sodium Succinate (Solu-Medrol) 40 mg IVPUSH Q12H [facility] Last Admin: 03/02/17 06:17 Dose: 40 mg Metoprolol Tartrate (Lopressor) 5 mg IVPUSH ONETIME ONE Stop: 03/03/17 08:31 Last Admin: 03/03/17 08:38 Dose: 5 mg Metoprolol Tartrate (Lopressor) 5 mg IVPUSH Q5M PRN PRN Reason: for heart rate sustaining >120 Stop: 03/03/17 09:06 Last Admin: 03/03/17 09:03 Dose: 5 mg Metoprolol Tartrate (Lopressor) 5 mg IVPUSH ONETIME ONE Stop: 03/03/17 17:45 Last Admin: 03/03/17 18:08 Dose: 5 mg Metoprolol Tartrate (Lopressor) 10 mg IVPUSH ONETIME ONE Stop: 03/03/17 17:46 Last Admin: 03/03/17 20:20 Dose: Not Given Metoprolol Tartrate (Lopressor) 5 mg IVPUSH ONETIME PRN PRN Reason: Tachycardia Last Admin: 03/03/17 22:05 Dose: 5 mg Metoprolol Tartrate (Lopressor) Confirm Administered Dose 10 mg .ROUTE .STK-MED ONE Stop: 03/04/17 06:13 Metoprolol Tartrate (Lopressor) 5 mg IVPUSH ONETIME ONE Stop: 03/04/17 06:14 Last Admin: 03/04/17 06:15 Dose: 5 mg Potassium Chloride (Potassium Chloride) 40 meq PO TID [facility] Stop: 03/03/17 15:01 Last Admin: 03/04/17 02:20 Dose: Not Given Saccharomyces Boulardii (Florastor) 250 mg PO DAILY [facility] Last Admin: 03/02/17 09:52 Dose: 250 mg Tbo-Filgrastim (Granix) 480 mcg SQ ONETIME ONE Stop: 03/03/17 17:01 Last Admin: 03/03/17 18:11 Dose: 480 mcg - Exam Physical Findings Comments:: Vitals: as above General: alert and oriented. Appears weak. Psych: calm and cooperative HEENT: normocephalic, atraumatic. EOMI Cardiac: Normal S1, S2. irregular rate. No murmurs rubs, or gallops. No JVD noted. 1-2+ pitting pedal edema Lungs: Coarse upper airway sounds but no significant wheezing noted. Abd: Soft, NT/ND. No HSM noted. Skin: no new visible rashes or purpura noted Neuro: CN grossly intact. Strength intact and adequate bilaterally. - Problem List & Annotations (1) Neutropenia SNOMED Code(s): 317939638 Code(s): D70.9 - NEUTROPENIA, UNSPECIFIED Status: Acute Current Visit: Yes Qualifiers: Neutropenia type: secondary to cancer chemotherapy Qualified Code(s): D70.1 - Agranulocytosis secondary to cancer chemotherapy (2) Acute bronchitis SNOMED Code(s): 45847544 Code(s): J20.9 - ACUTE BRONCHITIS, UNSPECIFIED Status: Acute Current Visit: Yes Qualifiers: Bronchitis organism: other organism Qualified Code(s): J20.8 - Acute bronchitis due to other specified organisms (3) Dehydration SNOMED Code(s): 85135667 Code(s): E86.0 - DEHYDRATION Status: Acute Current Visit: Yes (4) Hypoxia SNOMED Code(s): 840975121, 476978171 Code(s): R09.02 - HYPOXEMIA Status: Acute Current Visit: Yes (5) Influenza SNOMED Code(s): 9758863 Code(s): J11.1 - FLU DUE TO UNIDENTIFIED INFLUENZA VIRUS W OTH RESP MANIFEST Status: Acute Current Visit: Yes (6) Atrial fibrillation with RVR SNOMED Code(s): 665059595412146 Code(s): I48.91 - UNSPECIFIED ATRIAL FIBRILLATION Status: Acute Current Visit: Yes - Problem List Review Problem List Initiated/Reviewed/Updated: Yes - My Orders Last 24 Hours: My Active Orders 03/03/17 10:45 Diltiazem [Cardizem] 100 mg Sodium Chloride 0.9% [Normal Saline] 100 ml IV TITRATE 03/03/17 13:45 methylPREDNISolone Sod Succ [Solu-MEDROL] 10 mg IVPUSH DAILY 03/03/17 22:30 Vancomycin 1 gm Vancomycin 250 mg Sodium Chloride 0.9% [Normal Saline] 250 ml IV Q12H 03/04/17 05:00 Communication Order [RC] ASDIRECTED 03/04/17 07:51 HYDROmorphone [Dilaudid] 0.5 mg IVPUSH Q2H PRN 03/04/17 09:08 RT Post Treatment Assessment [RC] Click To Edit RT Pre-Treatment Assessment [RC] Click To Edit Albuterol [Proventil HFA] See Dose Instructions INH Q4H PRN 03/04/17 22:00 VANCOMYCIN TROUGH [CHEM] Stat 03/05/17 05:11 BASIC METABOLIC PANEL,BMP [CHEM] AM 03/05/17 09:15 Chest 2V [CR] AM 03/06/17 05:11 BASIC METABOLIC PANEL,BMP [CHEM] AM - Plan Plan:: Atrial fibrillation with RVR. QCFGy4Xfcf score of 0. Anticoagulation is not indicated. Likely do to his lung malignancy, recent chemotherapy and radiation, and ongoing diarrhea and influenza infection. Continue diltiazem drip and attempt to wean as tolerated. Keep in ICU today. Acute neurtopenia, and thrombocytopenia. Due to recent chemotherapy as well as acute viral infection. Will keep on Neupogen until his white count improves. Continue contact and respiratory precautions as needed. Case discussed with his oncologist Dr. Medel. He recommends continuing him on broad-spectrum empiric antibiotics with vancomycin and meropenem. Blood and sputum cultures negative to date. Acute respiratory distress with hypoxia, resolved. Patient is fluid overloaded on exam. However he is not eating anything so we will hold off on diuresis. IV fluids have been stopped. Recheck CXR. Influenza B infection. Continue Tamiflu. 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 Patient has completed one of 4 cycles of chemotherapy. Difficulty swallowing after RTX to thorax - Video swallow without obstruction, mild dysfunction noted in area where patient describes pain. Greater than 10 pound wgt loss, unable to swallow since recent radiation. Dr. Medel states this should improve in couple weeks. He recommended watching patient couple more days to see if his pain improves prior to initiating NG tube feedings. Taper off steroids per Dr. Medel. Dehydration, resolved. Given IVF. 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 Will have to avoid heparin products. DNR/DNI LOS likely will be beyond 96 hours
--- NOTE | 2017-03-04 12:57 | CR ---
Chest: Portable view of the chest was obtained. Comparison: Previous chest x-ray of 03/01/17. Heart size and mediastinum are normal. Slight interstitial change is noted which appears stable from prior chest x-ray. No acute infiltrates are seen. Left-sided infusion catheter is seen. Bony structures are grossly intact. Impression: 1. Stable chest x-ray as noted above. Nothing acute is appreciated. Diagnostic code #3
[2017-03-04] MEDS: Sodium Chloride 0.9% Inhalation Soln 3 ML Neb INH SCH ×4 (13:34→21:30)
[2017-03-04] MEDS ORDERED: Furosemide 40 MG/4 ML VIAL IVPUSH ONE (15:08)
--- NOTE | 2017-03-04 15:32 | PCM.SN ---
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 His O2 had to be titrated up from 3 L to 4 L. He appears to have increased respirations. On my exam he does appear more uncomfortable than in the morning. There is decreased breath sounds in the right middle and lower lung rabago compared to left side. There are no corbin rales or wheezing. I suspect that the patient has possible worsening of his influenza infection without any clear pneumonia as seen on chest x-ray from this morning. additionally, he is on vancomycin and meropenem, and I suspect bacterial pneumonia is very unlikely at this time. patient continues to make significant thick phlegm production. There is some possible hazy pulmonary edema on the chest x-ray. I will attempt diuresis, and place the patient on BiPAP for increased work of breathing. Continue aggressive pulmonary telemetry with nebulized saline, chest percussion and incentive spirometry.
[2017-03-04] MEDS ORDERED: Sertraline 25 MG Tab PO ONE (15:45)
[2017-03-04] MEDS: Metoprolol Tartrate 5 MG/5 ML SDV IVPUSH ONE ×2 (16:31→16:38)
[2017-03-04] MEDS ORDERED: Vancomycin 1 GM, Vancomycin 500 MG in Sodium Chloride 0.9% 250 ML IV SCH (23:00)
[2017-03-04] MEDS ORDERED: Sodium Chloride 0.9% 500 ML ONE (23:54)
[2017-03-04] MEDS ORDERED: Vancomycin 1 GM, Vancomycin 500 MG in Sodium Chloride 0.9% 500 ML IV SCH (23:55)
[2017-03-05] MEDS: Meropenem 1 GM in Sodium Chloride 0.9% 100 ML IV SCH ×2 (00:48→09:06)
[2017-03-05] MEDS: Vancomycin 1 GM, Vancomycin 500 MG in Sodium Chloride 0.9% 500 ML IV SCH ×3 (00:49→23:17)
[2017-03-05] MEDS: Diltiazem 100 MG in Sodium Chloride 0.9% 100 ML IV SCH ×3 (05:45→20:58)
[2017-03-05] MEDS: Sodium Chloride 0.9% Inhalation Soln 3 ML Neb INH SCH ×4 (06:39→21:38)
[2017-03-05] MEDS ORDERED: Ondansetron 4 MG/2 ML SDV IVPUSH PRN (08:41)
[2017-03-05] MEDS: Pantoprazole 40 MG Vial IVPUSH SCH (09:07)
--- NOTE | 2017-03-05 12:03 | PCM.PN ---
- General Info Date of Service: 03/05/17 Subjective Update: YEsterday the patient had episode of respiratory distress. He was tried on Bipap but did not tolerate it. He was given 1 dose of lasix which helped. his respiratory rate was 30, and improved to low 20s afterwards. - Review of Systems General: Denies: Fever Pulmonary: Reports: shortness of breath (improved.), cough (unchanged. Percussion and breathing treatments seems to be helping.) Cardiovascular: Reports: Chest Pain (improved from yesterday. Nonreporting constant burning sensation.) Gastrointestinal: Denies: Abdominal pain, Vomiting - Patient Data Vitals - most recent: Last Vital Signs Temp 35.9 C 03/05/17 08:00 Pulse 100 03/05/17 05:45 Resp 22 H 03/05/17 08:00 BP 113/86 03/05/17 08:00 Pulse Ox 95 03/05/17 09:31 Weight - most recent: 90.628 kg I&O - last 24 hours: Intake & Output 03/04/17 03/05/17 03/05/17 22:59 06:59 14:59 Intake Total 260 675 Output Total 800 50 Balance -540 625 Lab Results last 24 hrs: Laboratory Results - last 24 hr 03/04/17 03/04/17 03/05/17 Range/Units 16:15 21:35 04:50 WBC (4.23-9.07) K/mm3 RBC (4.63-6.08) M/mm3 Hgb (13.7-17.5) gm/L Hct (40.1-51.0) % MCV (79.0-92.2) fl MCH (25.7-32.2) pg MCHC (32.2-35.5) g/dl RDW Std Deviation (35.1-43.9) fL Plt Count (163-337) K/mm3 MPV (9.4-12.3) fl Sodium 137 (136-145) mEq/L Potassium 3.6 (3.5-5.1) mEq/L Chloride 101 (98-107) mEq/L Carbon Dioxide 25 (21-32) mEq/L Anion Gap 14.6 (5-15) BUN 31 H (7-18) mg/dL Creatinine 0.8 (0.7-1.3) mg/dL Est Cr Clr Drug Dosing 117.02 mL/min Estimated GFR (MDRD) > 60 (>60) mL/min BUN/Creatinine Ratio 38.8 H (14-18) Glucose 120 H (74-106) mg/dL Calcium 8.6 (8.5-10.1) mg/dL Urine Color Yellow (Yellow) Urine Appearance Slt cloudy H (Clear) Urine pH 6.0 (5.0-8.0) Ur Specific [place] 1.020 (1.005-1.030) Urine Protein Trace H (Negative) Urine Glucose (UA) Negative (Negative) Urine Ketones 1+ H (Negative) Urine Occult Blood Trace-lysed H (Negative) Urine Nitrite Negative (Negative) Urine Bilirubin Negative (Negative) Urine Urobilinogen 0.2 (0.2-1.0) Ur Leukocyte Esterase Negative (Negative) Urine RBC 5-10 H (0-5) /hpf Urine WBC 0-5 (0-5) /hpf Ur Epithelial Cells Not Reportable Ur Squamous Epith Cells 0-5 (0-5) /hpf Urine Bacteria Few (FEW) /hpf Urine Mucus Few (FEW) /hpf Vancomycin Trough 8.7 L (10.0-20.0) // Range/Units 04:50 WBC 0.07 L* (4.23-9.07) K/mm3 RBC 4.35 L (4.63-6.08) M/mm3 Hgb 12.2 L (13.7-17.5) gm/L Hct 36.1 L (40.1-51.0) % MCV 83.0 (79.0-92.2) fl MCH 28.0 (25.7-32.2) pg MCHC 33.8 (32.2-35.5) g/dl RDW Std Deviation 40.9 (35.1-43.9) fL Plt Count 19 L* (163-337) K/mm3 MPV 10.3 (9.4-12.3) fl Sodium (136-145) mEq/L Potassium (3.5-5.1) mEq/L Chloride (98-107) mEq/L Carbon Dioxide (21-32) mEq/L Anion Gap (5-15) BUN (7-18) mg/dL Creatinine (0.7-1.3) mg/dL Est Cr Clr Drug Dosing mL/min Estimated GFR (MDRD) (>60) mL/min BUN/Creatinine Ratio (14-18) Glucose (74-106) mg/dL Calcium (8.5-10.1) mg/dL Urine Color (Yellow) Urine Appearance (Clear) Urine pH (5.0-8.0) Ur Specific [place] (1.005-1.030) Urine Protein (Negative) Urine Glucose (UA) (Negative) Urine Ketones (Negative) Urine Occult Blood (Negative) Urine Nitrite (Negative) Urine Bilirubin (Negative) Urine Urobilinogen (0.2-1.0) Ur Leukocyte Esterase (Negative) Urine RBC (0-5) /hpf Urine WBC (0-5) /hpf Ur Epithelial Cells Ur Squamous Epith Cells (0-5) /hpf Urine Bacteria (FEW) /hpf Urine Mucus (FEW) /hpf Vancomycin Trough (10.0-20.0) Ryan Results last 24 hrs: Microbiology 03/03/17 04:45 Gram Stain - Final Sputum - Expectorated Sputum Culture - Final NORMAL RESPIRATORY BENJI 2 DAYS 03/03/17 01:30 Stool Culture - Preliminary Stool / Feces - Final - Final 03/01/17 09:00 Streptococcus pneumoniae Antigen (M - Final Urine - Bladder Med Orders - Current: Current Medications Acetaminophen (Tylenol) 650 mg PO Q6H PRN PRN Reason: Fever Last Admin: 03/01/17 09:13 Dose: 650 mg Albuterol (Proventil Hfa) 0 gm INH Q4H PRN PRN Reason: Shortness of Breath Benzocaine/Menthol (Cepacol Sore Throat) 1 lozenge MUCMEM Q2HR PRN PRN Reason: Sore Throat Last Admin: 03/01/17 19:19 Dose: 1 lozenge Bisacodyl (Dulcolax) 10 mg PO BID PRN PRN Reason: Constipation Diphenhydr/Magaldrate/Simeth/Lidoca (First-Mouthwash Blm Susp) 30 ml PO ACBED PRN PRN Reason: Sore Throat Hydromorphone HCl (Dilaudid) 0.5 mg IVPUSH Q2H PRN PRN Reason: Pain Promethazine HCl 12.5 mg/ (Sodium Chloride) 50.5 mls @ 100 mls/hr IV Q6H PRN PRN Reason: Nausea/Vomiting Diltiazem HCl 100 mg/ Sodium (Chloride) 100 mls @ 5 mls/hr IV TITRATE BELL; 5 MG /HR PRN Reason: Protocol Last Admin: 03/05/17 05:45 Dose: 15 mg/hr, 15 mls/hr Meropenem 500 mg/ Sodium (Chloride) 100 mls @ 200 mls/hr IV Q6H [facility] Vancomycin HCl 1 gm/Vancomycin HCl 500 mg/ Sodium Chloride 500 mls @ 250 mls/ hr IV Q12H [facility] Last Admin: 03/05/17 00:49 Dose: 250 mls/hr Lidocaine HCl (Xylocaine 2% Viscous) 15 ml PO ASDIRECTED PRN PRN Reason: Sore Throat Loperamide HCl (Imodium) 2 mg PO Q4H PRN PRN Reason: Diarrhea Metoprolol Tartrate (Lopressor) 5 mg IVPUSH ONETIME PRN PRN Reason: Tachycardia Ondansetron HCl (Zofran) 4 mg IVPUSH Q6H PRN PRN Reason: Nausea/Vomiting Pantoprazole Sodium (Protonix Iv) 40 mg IVPUSH DAILY [facility] Last Admin: 03/05/17 09:07 Dose: 40 mg Sodium Chloride (Sodium Chloride 0.9%) 3 ml INH QIDRT [facility] Last Admin: 03/05/17 09:31 Dose: 3 ml Tbo-Filgrastim (Granix) 480 mcg SUBCUT DAILY [facility] Last Admin: 03/05/17 09:08 Dose: 480 mcg Temazepam (Restoril) 15 mg PO BEDTIME PRN PRN Reason: Insomnia Vancomycin HCl (Pharmacy To Dose - Vancomycin) 1 dose .XX ASDIRECTED [facility] Discontinued Medications Albuterol (Proventil Neb Soln) 2.5 mg NEB Q4H PRN PRN Reason: Shortness of Breath Barium Sulfate (E-Z-Paste) 454 gm PO ONETIME ONE Stop: 02/28/17 09:59 Last Admin: 02/28/17 14:42 Dose: Not Given Barium Sulfate (E-Z-Hd) 340 gm PO ONETIME ONE Stop: 02/28/17 09:59 Last Admin: 02/28/17 14:42 Dose: Not Given Barium Sulfate (Liquid E-Z Paque) 355 ml PO PREPRO ONE Stop: 02/28/17 09:59 Last Admin: 02/28/17 14:43 Dose: Not Given Diltiazem HCl (Diltiazem) 10 mg IVPUSH ONETIME ONE Stop: 03/03/17 10:40 Last Admin: 03/03/17 11:06 Dose: 10 mg Enoxaparin Sodium (Lovenox) 40 mg SUBCUT DAILY [facility] Furosemide (Lasix) 20 mg IVPUSH NOW ONE Stop: 03/04/17 15:09 Last Admin: 03/04/17 15:27 Dose: 20 mg Sodium Chloride (Normal Saline) 1,000 mls @ 150 mls/hr IV ONETIME ONE Stop: 02/27/17 20:19 Last Admin: 02/27/17 14:21 Dose: 150 mls/hr Lactated Ringer's (Ringers, Lactated) 1,000 mls @ 999 mls/hr IV Q1H [facility] Stop: 02/27/17 20:44 Last Admin: 02/27/17 20:53 Dose: 999 mls/hr Lactated Ringer's (Ringers, Lactated) 1,000 mls @ 125 mls/hr IV ASDIRECTED [facility] Last Admin: 02/27/17 21:58 Dose: 125 mls/hr Levofloxacin/Dextrose 750 mg/ (Premix) 150 mls @ 100 mls/hr IV Q24H [facility] Piperacillin Sod/Tazobactam (Sod 4.5 gm/ Sodium Chloride) 100 mls @ 200 mls/hr IV ONETIME ONE Stop: 02/28/17 10:59 Last Admin: 02/28/17 11:26 Dose: 200 mls/hr Piperacillin Sod/Tazobactam (Sod 4.5 gm/ Sodium Chloride) 100 mls @ 25 mls/hr IV Q8H [facility] Last Admin: 03/02/17 09:52 Dose: 25 mls/hr Levofloxacin/Dextrose 750 mg/ (Premix) 150 mls @ 100 mls/hr IV Q24H [facility] Last Admin: 03/02/17 16:57 Dose: Not Given Sodium Chloride (Normal Saline) 1,000 mls @ 125 mls/hr IV ASDIRECTED [facility] Last Admin: 03/01/17 05:16 Dose: 125 mls/hr Dextrose/Sodium Chloride (Dextrose 5%-Normal Saline) 1,000 mls @ 125 mls/hr IV ASDIRECTED [facility] Last Admin: 03/02/17 02:46 Dose: 125 mls/hr Sodium Chloride (Normal Saline) 1,000 mls @ 80 mls/hr IV ASDIRECTED [facility] Last Admin: 03/03/17 11:16 Dose: 80 mls/hr Meropenem 1 gm/ Sodium (Chloride) 100 mls @ 200 mls/hr IV Q8H [facility] Vancomycin HCl 1 gm/Vancomycin HCl 250 mg/ Sodium Chloride 250 mls @ 250 mls/ hr IV Q12H [facility] Last Admin: 03/03/17 10:32 Dose: 250 mls/hr Meropenem 1 gm/ Sodium (Chloride) 100 mls @ 200 mls/hr IV Q8H [facility] Stop: 03/05/17 14:00 Last Admin: 03/05/17 09:06 Dose: 200 mls/hr Magnesium Sulfate 2 gm/ Premix 50 mls @ 25 mls/hr IV ONETIME ONE Stop: 03/03/17 12:59 Last Admin: 03/03/17 11:05 Dose: 25 mls/hr Potassium Chloride 10 meq/ (Premix) 100 mls @ 100 mls/hr IV Q1H [facility] Stop: 03/03/17 14:44 Last Admin: 03/03/17 14:46 Dose: 100 mls/hr Vancomycin HCl 1 gm/Vancomycin HCl 250 mg/ Sodium Chloride 250 mls @ 250 mls/ hr IV Q12H [facility] Last Admin: 03/04/17 11:21 Dose: 250 mls/hr Vancomycin HCl 1 gm/Vancomycin HCl 500 mg/ Sodium Chloride 250 mls @ 250 mls/ hr IV Q12H [facility] Last Admin: 03/05/17 00:50 Dose: Not Given Vancomycin HCl 1 gm/Vancomycin HCl 500 mg/ Sodium Chloride 500 mls @ 500 mls/ hr IV Q12H [facility] Last Admin: 03/05/17 00:50 Dose: Not Given Sodium Chloride (Normal Saline) Confirm Administered Dose 500 mls @ as directed .ROUTE .STK-MED ONE Stop: 03/04/17 23:55 Last Admin: 03/05/17 00:09 Dose: Not Given Levalbuterol HCl (Xopenex) 1.25 mg NEB QIDRT [facility] Last Admin: 03/04/17 12:07 Dose: Not Given Levalbuterol HCl (Xopenex) Confirm Administered Dose 1.25 mg .ROUTE .STK-MED ONE Stop: 03/04/17 09:25 Last Admin: 03/04/17 09:42 Dose: 1.25 mg Lidocaine HCl (Xylocaine 2% Viscous) 15 ml PO ASDIRECTED PRN PRN Reason: Sore Throat Magnesium Hydroxide (Milk Of Magnesia) 30 ml PO ONETIME ONE Stop: 03/01/17 22:04 Last Admin: 03/01/17 23:46 Dose: Not Given Meropenem (Merrem) Confirm Administered Dose 1 gm .ROUTE .STK-MED ONE Stop: 03/03/17 17:34 Last Admin: 03/03/17 17:40 Dose: Not Given Methylprednisolone Sodium Succinate (Solu-Medrol) 40 mg IVPUSH Q12H [facility] Last Admin: 03/02/17 06:17 Dose: 40 mg Methylprednisolone Sodium Succinate (Solu-Medrol) 10 mg IVPUSH DAILY [facility] Last Admin: 03/04/17 09:22 Dose: 10 mg Metoclopramide HCl (Reglan) 10 mg IVPUSH Q6H [facility] Last Admin: 03/04/17 09:16 Dose: 10 mg Metoprolol Tartrate (Lopressor) 5 mg IVPUSH ONETIME ONE Stop: 03/03/17 08:31 Last Admin: 03/03/17 08:38 Dose: 5 mg Metoprolol Tartrate (Lopressor) 5 mg IVPUSH Q5M PRN PRN Reason: for heart rate sustaining >120 Stop: 03/03/17 09:06 Last Admin: 03/03/17 09:03 Dose: 5 mg Metoprolol Tartrate (Lopressor) 5 mg IVPUSH ONETIME ONE Stop: 03/03/17 17:45 Last Admin: 03/03/17 18:08 Dose: 5 mg Metoprolol Tartrate (Lopressor) 10 mg IVPUSH ONETIME ONE Stop: 03/03/17 17:46 Last Admin: 03/03/17 20:20 Dose: Not Given Metoprolol Tartrate (Lopressor) 5 mg IVPUSH ONETIME PRN PRN Reason: Tachycardia Last Admin: 03/03/17 22:05 Dose: 5 mg Metoprolol Tartrate (Lopressor) Confirm Administered Dose 10 mg .ROUTE .STK-MED ONE Stop: 03/04/17 06:13 Last Admin: 03/04/17 16:30 Dose: Not Given Metoprolol Tartrate (Lopressor) 5 mg IVPUSH ONETIME ONE Stop: 03/04/17 06:14 Last Admin: 03/04/17 06:15 Dose: 5 mg Metoprolol Tartrate (Lopressor) 5 mg IVPUSH ONETIME ONE Stop: 03/04/17 16:31 Last Admin: 03/04/17 16:38 Dose: 5 mg Ondansetron HCl (Zofran) 4 mg IVPUSH Q8H PRN PRN Reason: Nausea/Vomiting Oseltamivir Phosphate (Tamiflu) 75 mg PO BID [facility] Stop: 03/04/17 21:01 Last Admin: 03/04/17 09:21 Dose: Not Given Potassium Chloride (Potassium Chloride) 40 meq PO TID [facility] Stop: 03/03/17 15:01 Last Admin: 03/04/17 02:20 Dose: Not Given Saccharomyces Boulardii (Florastor) 250 mg PO DAILY [facility] Last Admin: 03/02/17 09:52 Dose: 250 mg Sertraline HCl (Zoloft) 25 mg PO ONETIME ONE Stop: 03/04/17 15:46 Last Admin: 03/04/17 16:36 Dose: 25 mg Sodium Chloride (Sodium Chloride 0.9%) 3 ml INH QID [facility] Last Admin: 03/04/17 19:40 Dose: Not Given Tbo-Filgrastim (Granix) 480 mcg SQ ONETIME ONE Stop: 03/03/17 17:01 Last Admin: 03/03/17 18:11 Dose: 480 mcg - Exam Physical Findings Comments:: Vitals: as above General: alert and oriented. Appears weak. Psych: calm and cooperative HEENT: normocephalic, atraumatic. EOMI Cardiac: Normal S1, S2. irregular rate. No murmurs rubs, or gallops. 1-2+ pitting pedal edema Lungs: Coarse upper airway sounds but no significant wheezing noted. decreased breath sounds in the right mid and lower lung rabago compared to left side Abd: Soft, NT/ND. No HSM noted. Skin: no n, similar to yesterday. or purpura noted Neuro: CN grossly intact. Strength intact and adequate bilaterally. - Problem List & Annotations (1) Neutropenia SNOMED Code(s): 329285257 Code(s): D70.9 - NEUTROPENIA, UNSPECIFIED Status: Acute Current Visit: Yes Qualifiers: Neutropenia type: secondary to cancer chemotherapy Qualified Code(s): D70.1 - Agranulocytosis secondary to cancer chemotherapy (2) Acute bronchitis SNOMED Code(s): 80309149 Code(s): J20.9 - ACUTE BRONCHITIS, UNSPECIFIED Status: Acute Current Visit: Yes Qualifiers: Bronchitis organism: other organism Qualified Code(s): J20.8 - Acute bronchitis due to other specified organisms (3) Dehydration SNOMED Code(s): 16995503 Code(s): E86.0 - DEHYDRATION Status: Acute Current Visit: Yes (4) Hypoxia SNOMED Code(s): 150916116, 479493831 Code(s): R09.02 - HYPOXEMIA Status: Acute Current Visit: Yes (5) Influenza SNOMED Code(s): 6277537 Code(s): J11.1 - FLU DUE TO UNIDENTIFIED INFLUENZA VIRUS W OTH RESP MANIFEST Status: Acute Current Visit: Yes (6) Atrial fibrillation with RVR SNOMED Code(s): 495813555859417 Code(s): I48.91 - UNSPECIFIED ATRIAL FIBRILLATION Status: Acute Current Visit: Yes - Problem List Review Problem List Initiated/Reviewed/Updated: Yes - My Orders Last 24 Hours: My Active Orders 03/04/17 15:32 Chest Physiotherapy [RT Chest Physiotherapy] [RC] QID 03/04/17 15:40 RT BiPAP/CPAP [RC] ASDIRECTED 03/04/17 15:42 Incentive Spirometry [RT Incentive Spirometry] [RC] .PRN 03/04/17 16:00 Sodium Chloride 0.9% 3 ml INH QIDRT 03/04/17 16:02 CULTURE SPUTUM + SMEAR [RM] Stat 03/04/17 16:22 RESPIRATORY PANEL BY PCR [MREF] Urgent 03/05/17 00:00 Vancomycin 1 gm Vancomycin 500 mg Sodium Chloride 0.9% [Normal Saline] 500 ml IV Q12H 03/05/17 08:41 Ondansetron [Zofran] 4 mg IVPUSH Q6H PRN 03/05/17 15:30 Meropenem [Merrem] 500 mg Sodium Chloride 0.9% [Normal Saline] 100 ml IV Q6H 03/06/17 05:11 BASIC METABOLIC PANEL,BMP [CHEM] AM - Plan Plan:: Respiratory distress with new onset hypoxia. Secondary to fluid overload, and severe influenza infection given the patient had recent chemotherapy, has neutropenia, and had steroids. diuresed, and respiratory function has improved. Continue monitor closely, and continue supplemental oxygen as needed. Atrial fibrillation with RVR. [id number] score of 0. Anticoagulation is not indicated. Likely do to his lung malignancy, recent chemotherapy and radiation, and ongoing diarrhea and influenza infection. Continue diltiazem drip and attempt to wean as tolerated. Keep in ICU today. Acute neurtopenia, and thrombocytopenia. Due to recent chemotherapy as well as acute viral infection. Will keep on Neupogen until his white count improves. Continue contact and respiratory precautions as needed. Case discussed with his oncologist Dr. Medel. He recommends continuing him on broad-spectrum empiric antibiotics with vancomycin and meropenem. Blood and sputum cultures negative to date. Influenza B infection. Continue Tamiflu. 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 Patient has completed one of 4 cycles of chemotherapy. Difficulty swallowing after RTX to thorax - Video swallow without obstruction, mild dysfunction noted in area where patient describes pain. Greater than [address] Medel states this should improve in couple weeks. He recommended watching patient couple more days to see if his pain improves prior to initiating NG tube feedings. Pt reports improvement in his pain today. Dehydration, resolved. Given IVF. 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 Need to avoid heparin products. DNR/DNI LOS likely will be beyond 96 hours
[2017-03-05] MEDS ORDERED: Loperamide 1 MG/5 ML ML Solution 120 ML Bottle PO PRN (12:48)
[2017-03-05] MEDS ORDERED: Meropenem 500 MG SDV ONE (16:20)
[2017-03-05] MEDS: Meropenem 500 MG in Sodium Chloride 0.9% 100 ML IV SCH ×2 (16:26→20:58)
[2017-03-05] MEDS: HYDROmorphone 0.5 MG/0.5 ML Syringe IVPUSH PRN (17:58)
[2017-03-06] MEDS: Diltiazem 100 MG in Sodium Chloride 0.9% 100 ML IV SCH ×3 (02:26→14:38)
[2017-03-06] MEDS: Meropenem 500 MG in Sodium Chloride 0.9% 100 ML IV SCH ×4 (02:30→21:23)
[2017-03-06] MEDS: HYDROmorphone 0.5 MG/0.5 ML Syringe IVPUSH PRN ×3 (05:39→23:49)
[2017-03-06] MEDS: Sodium Chloride 0.9% Inhalation Soln 3 ML Neb INH SCH ×4 (06:15→20:38)
[2017-03-06] MEDS ORDERED: Furosemide 20 MG/2 ML VIAL IVPUSH ONE ×2 (08:46→10:16)
[2017-03-06] MEDS: Pantoprazole 40 MG Vial IVPUSH SCH (08:54)
[2017-03-06] MEDS ORDERED: Furosemide 40 MG/4 ML VIAL IVPUSH ONE (10:16)
--- NOTE | 2017-03-06 10:43 | PCM.PN ---
- General Info Date of Service: 03/06/17 Subjective Update: Had a discussion about possibly transferring to his [facility] on Friday. Patient surgically improved. Patient, , and provider had a discussion about transfer , and at this time due to to hold off, as we're already keeping patient on broad -spectrum antibiotics, Neupogen, and aggressive chest physiotherapy. Dr. Conteh stated by the end of the week, his leukocyte count could start improving, and swallow function may improve. - Review of Systems General: Denies: Fever Pulmonary: Reports: shortness of breath, cough Cardiovascular: Reports: Chest Pain (With swallowing. Somewhat improved compared to yesterday.) Gastrointestinal: Reports: Abdominal pain (With swallowing. Somewhat improved compared to yesterday.), Decreased appetite, Difficulty swallowing. Denies: Vomiting - Patient Data Vitals - most recent: Last Vital Signs Temp 36.5 C 03/06/17 08:00 Pulse 87 03/06/17 07:50 Resp 18 03/06/17 10:00 BP 117/87 03/06/17 10:00 Pulse Ox 95 03/06/17 10:00 Weight - most recent: 90.1 kg I&O - last 24 hours: Intake & Output 03/05/17 03/06/17 03/06/17 22:59 06:59 14:59 Intake Total 370 755 Output Total 175 300 650 Balance 195 455 -650 Lab Results last 24 hrs: Laboratory Results - last 24 hr 03/06/17 03/06/17 Range/Units 06:10 06:10 WBC 0.18 L* (4.23-9.07) K/mm3 RBC 4.36 L (4.63-6.08) M/mm3 Hgb 12.2 L (13.7-17.5) gm/L Hct 36.3 L (40.1-51.0) % MCV 83.3 (79.0-92.2) fl MCH 28.0 (25.7-32.2) pg MCHC 33.6 (32.2-35.5) g/dl RDW Std Deviation 40.1 (35.1-43.9) fL Plt Count 14 L* (163-337) K/mm3 MPV 10.7 (9.4-12.3) fl Sodium 140 (136-145) mEq/L Potassium 3.7 (3.5-5.1) mEq/L Chloride 104 (98-107) mEq/L Carbon Dioxide 29 (21-32) mEq/L Anion Gap 10.7 (5-15) BUN 27 H (7-18) mg/dL Creatinine 0.8 (0.7-1.3) mg/dL Est Cr Clr Drug Dosing 117.02 mL/min Estimated GFR (MDRD) > 60 (>60) mL/min BUN/Creatinine Ratio 33.8 H (14-18) Glucose 117 H (74-106) mg/dL Calcium 8.8 (8.5-10.1) mg/dL Ryan Results last 24 hrs: Microbiology 03/03/17 01:30 Stool Culture - Final Stool / Feces - Final - Final 03/04/17 16:22 Respiratory Virus Panel (PCR) (RYAN) - Final Nasopharyngeal Swab - Nare, Left 03/03/17 04:45 Gram Stain - Final Sputum - Expectorated Sputum Culture - Final NORMAL RESPIRATORY BENJI 2 DAYS Med Orders - Current: Current Medications Acetaminophen (Tylenol) 650 mg PO Q6H PRN PRN Reason: Fever Last Admin: 03/01/17 09:13 Dose: 650 mg Albuterol (Proventil Hfa) 0 gm INH Q4H PRN PRN Reason: Shortness of Breath Benzocaine/Menthol (Cepacol Sore Throat) 1 lozenge MUCMEM Q2HR PRN PRN Reason: Sore Throat Last Admin: 03/01/17 19:19 Dose: 1 lozenge Bisacodyl (Dulcolax) 10 mg PO BID PRN PRN Reason: Constipation Diphenhydr/Magaldrate/Simeth/Lidoca (First-Mouthwash Blm Susp) 30 ml PO ACBED PRN PRN Reason: Sore Throat Hydromorphone HCl (Dilaudid) 0.5 mg IVPUSH Q2H PRN PRN Reason: Pain Last Admin: 03/06/17 05:39 Dose: 0.5 mg Promethazine HCl 12.5 mg/ (Sodium Chloride) 50.5 mls @ 100 mls/hr IV Q6H PRN PRN Reason: Nausea/Vomiting Diltiazem HCl 100 mg/ Sodium (Chloride) 100 mls @ 5 mls/hr IV TITRATE BELL; 5 MG /HR PRN Reason: Protocol Last Admin: 03/06/17 07:50 Dose: 15 mg/hr, 15 mls/hr Meropenem 500 mg/ Sodium (Chloride) 100 mls @ 200 mls/hr IV Q6H [facility] Last Admin: 03/06/17 08:57 Dose: 200 mls/hr Vancomycin HCl 1 gm/Vancomycin HCl 500 mg/ Sodium Chloride 500 mls @ 250 mls/ hr IV Q12H [facility] Last Admin: 03/05/17 23:17 Dose: 250 mls/hr Lidocaine HCl (Xylocaine 2% Viscous) 15 ml PO ASDIRECTED PRN PRN Reason: Sore Throat Loperamide HCl (Imodium) 2 mg PO Q4H PRN PRN Reason: Diarrhea Metoprolol Tartrate (Lopressor) 5 mg IVPUSH ONETIME PRN PRN Reason: Tachycardia Ondansetron HCl (Zofran) 4 mg IVPUSH Q6H PRN PRN Reason: Nausea/Vomiting Pantoprazole Sodium (Protonix Iv) 40 mg IVPUSH DAILY [facility] Last Admin: 03/06/17 08:54 Dose: 40 mg Sodium Chloride (Sodium Chloride 0.9%) 3 ml INH QIDRT [facility] Last Admin: 03/06/17 09:24 Dose: 3 ml Tbo-Filgrastim (Granix) 480 mcg SUBCUT DAILY [facility] Last Admin: 03/06/17 08:54 Dose: 480 mcg Temazepam (Restoril) 15 mg PO BEDTIME PRN PRN Reason: Insomnia Vancomycin HCl (Pharmacy To Dose - Vancomycin) 1 dose .XX ASDIRECTED [facility] Discontinued Medications Albuterol (Proventil Neb Soln) 2.5 mg NEB Q4H PRN PRN Reason: Shortness of Breath Barium Sulfate (E-Z-Paste) 454 gm PO ONETIME ONE Stop: 02/28/17 09:59 Last Admin: 02/28/17 14:42 Dose: Not Given Barium Sulfate (E-Z-Hd) 340 gm PO ONETIME ONE Stop: 02/28/17 09:59 Last Admin: 02/28/17 14:42 Dose: Not Given Barium Sulfate (Liquid E-Z Paque) 355 ml PO PREPRO ONE Stop: 02/28/17 09:59 Last Admin: 02/28/17 14:43 Dose: Not Given Diltiazem HCl (Diltiazem) 10 mg IVPUSH ONETIME ONE Stop: 03/03/17 10:40 Last Admin: 03/03/17 11:06 Dose: 10 mg Enoxaparin Sodium (Lovenox) 40 mg SUBCUT DAILY [facility] Furosemide (Lasix) 20 mg IVPUSH NOW ONE Stop: 03/04/17 15:09 Last Admin: 03/04/17 15:27 Dose: 20 mg Furosemide (Lasix) 20 mg IVPUSH NOW ONE Stop: 03/06/17 08:47 Last Admin: 03/06/17 09:02 Dose: 20 mg Furosemide (Lasix) 20 mg IVPUSH NOW ONE Stop: 03/06/17 10:17 Furosemide (Lasix) 20 mg IVPUSH NOW ONE Stop: 03/06/17 10:17 Sodium Chloride (Normal Saline) 1,000 mls @ 150 mls/hr IV ONETIME ONE Stop: 02/27/17 20:19 Last Admin: 02/27/17 14:21 Dose: 150 mls/hr Lactated Ringer's (Ringers, Lactated) 1,000 mls @ 999 mls/hr IV Q1H [facility] Stop: 02/27/17 20:44 Last Admin: 02/27/17 20:53 Dose: 999 mls/hr Lactated Ringer's (Ringers, Lactated) 1,000 mls @ 125 mls/hr IV ASDIRECTED [facility] Last Admin: 02/27/17 21:58 Dose: 125 mls/hr Levofloxacin/Dextrose 750 mg/ (Premix) 150 mls @ 100 mls/hr IV Q24H [facility] Piperacillin Sod/Tazobactam (Sod 4.5 gm/ Sodium Chloride) 100 mls @ 200 mls/hr IV ONETIME ONE Stop: 02/28/17 10:59 Last Admin: 02/28/17 11:26 Dose: 200 mls/hr Piperacillin Sod/Tazobactam (Sod 4.5 gm/ Sodium Chloride) 100 mls @ 25 mls/hr IV Q8H [facility] Last Admin: 03/02/17 09:52 Dose: 25 mls/hr Levofloxacin/Dextrose 750 mg/ (Premix) 150 mls @ 100 mls/hr IV Q24H [facility] Last Admin: 03/02/17 16:57 Dose: Not Given Sodium Chloride (Normal Saline) 1,000 mls @ 125 mls/hr IV ASDIRECTED [facility] Last Admin: 03/01/17 05:16 Dose: 125 mls/hr Dextrose/Sodium Chloride (Dextrose 5%-Normal Saline) 1,000 mls @ 125 mls/hr IV ASDIRECTED BELL Last Admin: 03/02/17 02:46 Dose: 125 mls/hr Sodium Chloride (Normal Saline) 1,000 mls @ 80 mls/hr IV ASDIRECTED [facility] Last Admin: 03/03/17 11:16 Dose: 80 mls/hr Meropenem 1 gm/ Sodium (Chloride) 100 mls @ 200 mls/hr IV Q8H [facility] Vancomycin HCl 1 gm/Vancomycin HCl 250 mg/ Sodium Chloride 250 mls @ 250 mls/ hr IV Q12H [facility] Last Admin: 03/03/17 10:32 Dose: 250 mls/hr Meropenem 1 gm/ Sodium (Chloride) 100 mls @ 200 mls/hr IV Q8H [facility] Stop: 03/05/17 14:00 Last Admin: 03/05/17 09:06 Dose: 200 mls/hr Magnesium Sulfate 2 gm/ Premix 50 mls @ 25 mls/hr IV ONETIME ONE Stop: 03/03/17 12:59 Last Admin: 03/03/17 11:05 Dose: 25 mls/hr Potassium Chloride 10 meq/ (Premix) 100 mls @ 100 mls/hr IV Q1H [facility] Stop: 03/03/17 14:44 Last Admin: 03/03/17 14:46 Dose: 100 mls/hr Vancomycin HCl 1 gm/Vancomycin HCl 250 mg/ Sodium Chloride 250 mls @ 250 mls/ hr IV Q12H [facility] Last Admin: 03/04/17 11:21 Dose: 250 mls/hr Vancomycin HCl 1 gm/Vancomycin HCl 500 mg/ Sodium Chloride 250 mls @ 250 mls/ hr IV Q12H [facility] Last Admin: 03/05/17 00:50 Dose: Not Given Vancomycin HCl 1 gm/Vancomycin HCl 500 mg/ Sodium Chloride 500 mls @ 500 mls/ hr IV Q12H [facility] Last Admin: 03/05/17 00:50 Dose: Not Given Sodium Chloride (Normal Saline) Confirm Administered Dose 500 mls @ as directed .ROUTE .STK-MED ONE Stop: 03/04/17 23:55 Last Admin: 03/05/17 00:09 Dose: Not Given Levalbuterol HCl (Xopenex) 1.25 mg NEB QIDRT [facility] Last Admin: 03/04/17 12:07 Dose: Not Given Levalbuterol HCl (Xopenex) Confirm Administered Dose 1.25 mg .ROUTE .STK-MED ONE Stop: 03/04/17 09:25 Last Admin: 03/04/17 09:42 Dose: 1.25 mg Lidocaine HCl (Xylocaine 2% Viscous) 15 ml PO ASDIRECTED PRN PRN Reason: Sore Throat Loperamide HCl (Imodium) 2 mg PO Q4H PRN PRN Reason: Diarrhea Magnesium Hydroxide (Milk Of Magnesia) 30 ml PO ONETIME ONE Stop: 03/01/17 22:04 Last Admin: 03/01/17 23:46 Dose: Not Given Meropenem (Merrem) Confirm Administered Dose 1 gm .ROUTE .STK-MED ONE Stop: 03/03/17 17:34 Last Admin: 03/03/17 17:40 Dose: Not Given Meropenem (Merrem) Confirm Administered Dose 500 mg .ROUTE .STK-MED ONE Stop: 03/05/17 16:21 Last Admin: 03/05/17 16:25 Dose: Not Given Methylprednisolone Sodium Succinate (Solu-Medrol) 40 mg IVPUSH Q12H [facility] Last Admin: 03/02/17 06:17 Dose: 40 mg Methylprednisolone Sodium Succinate (Solu-Medrol) 10 mg IVPUSH DAILY [facility] Last Admin: 03/04/17 09:22 Dose: 10 mg Metoclopramide HCl (Reglan) 10 mg IVPUSH Q6H [facility] Last Admin: 03/04/17 09:16 Dose: 10 mg Metoprolol Tartrate (Lopressor) 5 mg IVPUSH ONETIME ONE Stop: 03/03/17 08:31 Last Admin: 03/03/17 08:38 Dose: 5 mg Metoprolol Tartrate (Lopressor) 5 mg IVPUSH Q5M PRN PRN Reason: for heart rate sustaining >120 Stop: 03/03/17 09:06 Last Admin: 03/03/17 09:03 Dose: 5 mg Metoprolol Tartrate (Lopressor) 5 mg IVPUSH ONETIME ONE Stop: 03/03/17 17:45 Last Admin: 03/03/17 18:08 Dose: 5 mg Metoprolol Tartrate (Lopressor) 10 mg IVPUSH ONETIME ONE Stop: 03/03/17 17:46 Last Admin: 03/03/17 20:20 Dose: Not Given Metoprolol Tartrate (Lopressor) 5 mg IVPUSH ONETIME PRN PRN Reason: Tachycardia Last Admin: 03/03/17 22:05 Dose: 5 mg Metoprolol Tartrate (Lopressor) Confirm Administered Dose 10 mg .ROUTE .STK-MED ONE Stop: 03/04/17 06:13 Last Admin: 03/04/17 16:30 Dose: Not Given Metoprolol Tartrate (Lopressor) 5 mg IVPUSH ONETIME ONE Stop: 03/04/17 06:14 Last Admin: 03/04/17 06:15 Dose: 5 mg Metoprolol Tartrate (Lopressor) 5 mg IVPUSH ONETIME ONE Stop: 03/04/17 16:31 Last Admin: 03/04/17 16:38 Dose: 5 mg Ondansetron HCl (Zofran) 4 mg IVPUSH Q8H PRN PRN Reason: Nausea/Vomiting Oseltamivir Phosphate (Tamiflu) 75 mg PO BID [facility] Stop: 03/04/17 21:01 Last Admin: 03/04/17 09:21 Dose: Not Given Potassium Chloride (Potassium Chloride) 40 meq PO TID [facility] Stop: 03/03/17 15:01 Last Admin: 03/04/17 02:20 Dose: Not Given Saccharomyces Boulardii (Florastor) 250 mg PO DAILY [facility] Last Admin: 03/02/17 09:52 Dose: 250 mg Sertraline HCl (Zoloft) 25 mg PO ONETIME ONE Stop: 03/04/17 15:46 Last Admin: 03/04/17 16:36 Dose: 25 mg Sodium Chloride (Sodium Chloride 0.9%) 3 ml INH QID [facility] Last Admin: 03/04/17 19:40 Dose: Not Given Tbo-Filgrastim (Granix) 480 mcg SQ ONETIME ONE Stop: 03/03/17 17:01 Last Admin: 03/03/17 18:11 Dose: 480 mcg - Exam Physical Findings Comments:: Vitals: as above General: alert and oriented. Appears weak. Psych: calm and cooperative HEENT: normocephalic, atraumatic. EOMI Cardiac: Normal S1, S2. regular rate. No murmurs rubs, or gallops. trace pitting pedal edema Lungs: bibasilar rales noted. decreased breath sounds at right base. No wheezing. Abd: Soft, NT/ND. No HSM noted. Skin: no new rashes or purpura noted Neuro: CN grossly intact. Strength intact and adequate bilaterally. - Problem List & Annotations (1) Neutropenia SNOMED Code(s): 228364710 Code(s): D70.9 - NEUTROPENIA, UNSPECIFIED Status: Acute Current Visit: Yes Qualifiers: Neutropenia type: secondary to cancer chemotherapy Qualified Code(s): D70.1 - Agranulocytosis secondary to cancer chemotherapy (2) Acute bronchitis SNOMED Code(s): 32598391 Code(s): J20.9 - ACUTE BRONCHITIS, UNSPECIFIED Status: Acute Current Visit: Yes Qualifiers: Bronchitis organism: other organism Qualified Code(s): J20.8 - Acute bronchitis due to other specified organisms (3) Dehydration SNOMED Code(s): 98669331 Code(s): E86.0 - DEHYDRATION Status: Acute Current Visit: Yes (4) Hypoxia SNOMED Code(s): 060197208, 669975380 Code(s): R09.02 - HYPOXEMIA Status: Acute Current Visit: Yes (5) Influenza SNOMED Code(s): 5391159 Code(s): J11.1 - FLU DUE TO UNIDENTIFIED INFLUENZA VIRUS W OTH RESP MANIFEST Status: Acute Current Visit: Yes (6) Atrial fibrillation with RVR SNOMED Code(s): 992070315914013 Code(s): I48.91 - UNSPECIFIED ATRIAL FIBRILLATION Status: Acute Current Visit: Yes - Problem List Review Problem List Initiated/Reviewed/Updated: Yes - My Orders Last 24 Hours: My Active Orders 03/05/17 12:48 Loperamide [Imodium] 2 mg PO Q4H PRN 03/05/17 15:30 Meropenem [Merrem] 500 mg Sodium Chloride 0.9% [Normal Saline] 100 ml IV Q6H 03/06/17 10:24 CULTURE SPUTUM + SMEAR [RM] Stat - Plan Plan:: Respiratory distress with new onset hypoxia. Secondary to fluid overload, and severe influenza infection given the patient had recent chemotherapy, has neutropenia, and had steroids. diuresed, and respiratory function has improved. Continue monitor closely, and continue supplemental oxygen as needed. Atrial fibrillation with RVR. [id number] score of 0. Anticoagulation is not indicated. Likely do to his lung malignancy, recent chemotherapy and radiation, and ongoing diarrhea and influenza infection. Continue diltiazem drip and attempt to wean as tolerated. Keep in ICU today. Acute neurtopenia, and thrombocytopenia. Due to recent chemotherapy as well as acute viral infection. Keep on Neupogen until his white count improves above 1. Neutrophils no longer decreasing in count. Continue contact and respiratory precautions as needed. Case discussed with his oncologist Dr. Medel. He recommends continuing him on broad-spectrum empiric antibiotics with vancomycin and meropenem. Blood and sputum cultures negative to date. Influenza B infection. Tamiflu was ordered, but patient could not swallow. His cough is improved today. Diurese today as Pt is still shortness of breath and has rales on exam. 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 Patient has completed one of 4 cycles of chemotherapy (which was initiated for palliation as tumor was pressing on his trachea). Difficulty swallowing after RTX to thorax - Video swallow without obstruction, mild dysfunction noted in area where patient describes pain. Greater than [address] Medel states this should improve in couple weeks. Plan to consider initiating NG tube feedings by friday if Pt still not swallowing and platelets improve by then. Pt reports improvement in his pain today. Dehydration, resolved. Given IVF. 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 Need to avoid heparin products. DNR/DNI LOS likely will be beyond 96 hours
[2017-03-06] MEDS ORDERED: Metoprolol Tartrate 5 MG/5 ML SDV IVPUSH ONE (11:27)
--- NOTE | 2017-03-06 11:51 | CR ---
Chest: Frontal view of the chest was obtained. Comparison: Previous chest x-ray of 03/04/17. Left-sided infusion port is seen. Tip lies within the brachiocephalic vein on the left side. Heart size and mediastinum are normal. Lungs are clear. Bony structures are grossly intact. Impression: 1. Left-sided port with tip lying within the brachiocephalic vein. This is similar to previous exam. 2. Nothing acute seen on frontal chest x-ray. Diagnostic code #2
[2017-03-06] MEDS ORDERED: Vancomycin 1 GM, Vancomycin 250 MG in Sodium Chloride 0.9% 250 ML IV SCH (12:45)
[2017-03-06] MEDS: Vancomycin 1 GM, Vancomycin 250 MG in Sodium Chloride 0.9% 250 ML IV SCH ×2 (12:46→20:00)
[2017-03-06] MEDS: Vancomycin 1 GM, Vancomycin 500 MG in Sodium Chloride 0.9% 500 ML IV SCH (17:20)
[2017-03-07] MEDS: HYDROmorphone 0.5 MG/0.5 ML Syringe IVPUSH PRN (02:09)
[2017-03-07] MEDS ORDERED: Furosemide 20 MG/2 ML VIAL IVPUSH ONE (02:22)
[2017-03-07] MEDS ORDERED: Furosemide 20 MG/2 ML VIAL ONE (02:25)
[2017-03-07] MEDS: HYDROmorphone 1 MG/ML Syringe IVPUSH PRN ×5 (02:29→21:52)
[2017-03-07] MEDS: Meropenem 500 MG in Sodium Chloride 0.9% 100 ML IV SCH ×4 (02:30→20:56)
[2017-03-07] MEDS: Vancomycin 1 GM, Vancomycin 250 MG in Sodium Chloride 0.9% 250 ML IV SCH ×3 (04:21→20:11)
[2017-03-07] MEDS: Diltiazem 100 MG in Sodium Chloride 0.9% 100 ML IV SCH (04:22)
[2017-03-07] MEDS: Sodium Chloride 0.9% Inhalation Soln 3 ML Neb INH SCH ×5 (06:17→21:03)
[2017-03-07] MEDS: Pantoprazole 40 MG Vial IVPUSH SCH (09:03)
[2017-03-07] MEDS: Potassium Chloride 10 MEQ in Premix Bag 1 BAG IV SCH ×9 (09:03→16:24)
--- NOTE | 2017-03-07 10:13 | PCM.PN ---
- General Info Date of Service: 03/07/17 Subjective Update: Patient had some back pain overnight requiring Dilaudid. He did not report any pain to me this morning. He drinks 4 pitchers of water yesterday which is a marked improvement since admission. He did not tolerate the cream of wheat last morning, but is eager to try breakfast today. - Review of Systems General: Denies: Fever Pulmonary: Reports: shortness of breath (Reports similar to yesterday, but overall improved since admission), cough (Similar to yesterday) Cardiovascular: Reports: Chest Pain (Feels that his chest pain is improved). Denies: Palpitations Gastrointestinal: Denies: Abdominal pain - Patient Data Vitals - most recent: Last Vital Signs Temp 36.7 C 03/07/17 08:00 Pulse 90 03/07/17 08:00 Resp 20 03/07/17 08:00 BP 137/89 03/07/17 08:00 Pulse Ox 90 L 03/07/17 06:00 Weight - most recent: 88.269 kg I&O - last 24 hours: Intake & Output 03/06/17 03/07/17 03/07/17 22:59 06:59 14:59 Intake Total 610 550 Output Total 350 600 Balance 260 -50 Lab Results last 24 hrs: Laboratory Results - last 24 hr 03/06/17 03/07/17 03/07/17 Range/Units 11:33 06:15 06:15 WBC 0.72 L* (4.23-9.07) K/mm3 RBC 4.20 L (4.63-6.08) M/mm3 Hgb 11.8 L (13.7-17.5) gm/L Hct 35.1 L (40.1-51.0) % MCV 83.6 (79.0-92.2) fl MCH 28.1 (25.7-32.2) pg MCHC 33.6 (32.2-35.5) g/dl RDW Std Deviation 40.5 (35.1-43.9) fL Plt Count 12 L* (163-337) K/mm3 MPV 10.4 (9.4-12.3) fl Neut % (Auto) 57.0 (34.0-67.9) % Lymph % (Auto) 12.5 L (21.8-53.1) % Barron % (Auto) 23.6 H (5.3-12.2) % Eos % (Auto) 0 L (0.8-7.0) Baso % (Auto) 0.0 L (0.1-1.2) % Neut # (Auto) 0.41 L (1.78-5.38) K/mm3 Lymph # (Auto) 0.09 L (1.32-3.57) K/mm3 Barron # (Auto) 0.17 L (0.30-0.82) K/mm3 Eos # (Auto) 0.00 L (0.04-0.54) K/mm3 Baso # (Auto) 0.00 L (0.01-0.08) K/mm3 Manual Slide Review Abnormal smear Sodium 140 (136-145) mEq/L Potassium 2.8 L (3.5-5.1) mEq/L Chloride 100 (98-107) mEq/L Carbon Dioxide 31 (21-32) mEq/L Anion Gap 11.8 (5-15) BUN 26 H (7-18) mg/dL Creatinine 0.8 (0.7-1.3) mg/dL Est Cr Clr Drug Dosing 117.02 mL/min Estimated GFR (MDRD) > 60 (>60) mL/min BUN/Creatinine Ratio 32.5 H (14-18) Glucose 95 (74-106) mg/dL Calcium 8.8 (8.5-10.1) mg/dL Magnesium 1.8 (1.8-2.4) mg/dl Vancomycin Trough 9.5 L (10.0-20.0) Ryan Results last 24 hrs: Microbiology 03/06/17 10:24 Gram Stain - Final Sputum - Expectorated 03/03/17 01:30 Stool Culture - Final Stool / Feces - Final - Final 03/04/17 16:22 Respiratory Virus Panel (PCR) (RYAN) - Final Nasopharyngeal Swab - Nare, Left Med Orders - Current: Current Medications Acetaminophen (Tylenol) 650 mg PO Q6H PRN PRN Reason: Fever Last Admin: 03/01/17 09:13 Dose: 650 mg Albuterol (Proventil Hfa) 0 gm INH Q4H PRN PRN Reason: Shortness of Breath Benzocaine/Menthol (Cepacol Sore Throat) 1 lozenge MUCMEM Q2HR PRN PRN Reason: Sore Throat Last Admin: 03/01/17 19:19 Dose: 1 lozenge Bisacodyl (Dulcolax) 10 mg PO BID PRN PRN Reason: Constipation Diphenhydr/Magaldrate/Simeth/Lidoca (First-Mouthwash Blm Susp) 30 ml PO ACBED PRN PRN Reason: Sore Throat Hydromorphone HCl (Dilaudid) 0.5 mg IVPUSH Q2H PRN PRN Reason: Pain Last Admin: 03/07/17 02:09 Dose: 0.5 mg Hydromorphone HCl (Dilaudid) 1 mg IVPUSH Q2H PRN PRN Reason: Pain (severe 7-10) Last Admin: 03/07/17 09:01 Dose: 1 mg Promethazine HCl 12.5 mg/ (Sodium Chloride) 50.5 mls @ 100 mls/hr IV Q6H PRN PRN Reason: Nausea/Vomiting Diltiazem HCl 100 mg/ Sodium (Chloride) 100 mls @ 5 mls/hr IV TITRATE BELL; 5 MG /HR PRN Reason: Protocol Last Admin: 03/07/17 04:22 Dose: 15 mg/hr, 15 mls/hr Meropenem 500 mg/ Sodium (Chloride) 100 mls @ 200 mls/hr IV Q6H BELL Last Admin: 03/07/17 09:03 Dose: 200 mls/hr Vancomycin HCl 1 gm/Vancomycin HCl 250 mg/ Sodium Chloride 250 mls @ 166 mls/ hr IV Q8H [facility] Last Admin: 03/07/17 04:21 Dose: 166 mls/hr Potassium Chloride 10 meq/ (Premix) 100 mls @ 100 mls/hr IV Q1H [facility] Stop: 03/07/17 17:29 Last Admin: 03/07/17 09:54 Dose: 100 mls/hr Lidocaine HCl (Xylocaine 2% Viscous) 15 ml PO ASDIRECTED PRN PRN Reason: Sore Throat Loperamide HCl (Imodium) 2 mg PO Q4H PRN PRN Reason: Diarrhea Metoprolol Tartrate (Lopressor) 5 mg IVPUSH ONETIME PRN PRN Reason: Tachycardia Metoprolol Tartrate (Lopressor) 50 mg PO BID BELL Ondansetron HCl (Zofran) 4 mg IVPUSH Q6H PRN PRN Reason: Nausea/Vomiting Pantoprazole Sodium (Protonix Iv) 40 mg IVPUSH DAILY [facility] Last Admin: 03/07/17 09:03 Dose: 40 mg Sodium Chloride (Sodium Chloride 0.9%) 3 ml INH QIDRT [facility] Last Admin: 03/07/17 09:58 Dose: Not Given Tbo-Filgrastim (Granix) 480 mcg SUBCUT DAILY [facility] Last Admin: 03/07/17 09:04 Dose: 480 mcg Temazepam (Restoril) 15 mg PO BEDTIME PRN PRN Reason: Insomnia Vancomycin HCl (Pharmacy To Dose - Vancomycin) 1 dose .XX ASDIRECTED [facility] Discontinued Medications Albuterol (Proventil Neb Soln) 2.5 mg NEB Q4H PRN PRN Reason: Shortness of Breath Barium Sulfate (E-Z-Paste) 454 gm PO ONETIME ONE Stop: 02/28/17 09:59 Last Admin: 02/28/17 14:42 Dose: Not Given Barium Sulfate (E-Z-Hd) 340 gm PO ONETIME ONE Stop: 02/28/17 09:59 Last Admin: 02/28/17 14:42 Dose: Not Given Barium Sulfate (Liquid E-Z Paque) 355 ml PO PREPRO ONE Stop: 02/28/17 09:59 Last Admin: 02/28/17 14:43 Dose: Not Given Diltiazem HCl (Diltiazem) 10 mg IVPUSH ONETIME ONE Stop: 03/03/17 10:40 Last Admin: 03/03/17 11:06 Dose: 10 mg Enoxaparin Sodium (Lovenox) 40 mg SUBCUT DAILY [facility] Furosemide (Lasix) 20 mg IVPUSH NOW ONE Stop: 03/04/17 15:09 Last Admin: 03/04/17 15:27 Dose: 20 mg Furosemide (Lasix) 20 mg IVPUSH NOW ONE Stop: 03/06/17 08:47 Last Admin: 03/06/17 09:02 Dose: 20 mg Furosemide (Lasix) 20 mg IVPUSH NOW ONE Stop: 03/06/17 10:17 Last Admin: 03/06/17 11:25 Dose: Not Given Furosemide (Lasix) 20 mg IVPUSH NOW ONE Stop: 03/06/17 10:17 Last Admin: 03/06/17 11:41 Dose: Not Given Furosemide (Lasix) 20 mg IVPUSH ONETIME ONE Stop: 03/07/17 02:23 Last Admin: 03/07/17 02:29 Dose: 20 mg Furosemide (Lasix) Confirm Administered Dose 20 mg .ROUTE .STK-MED ONE Stop: 03/07/17 02:26 Last Admin: 03/07/17 02:32 Dose: Not Given Sodium Chloride (Normal Saline) 1,000 mls @ 150 mls/hr IV ONETIME ONE Stop: 02/27/17 20:19 Last Admin: 02/27/17 14:21 Dose: 150 mls/hr Lactated Ringer's (Ringers, Lactated) 1,000 mls @ 999 mls/hr IV Q1H [facility] Stop: 02/27/17 20:44 Last Admin: 02/27/17 20:53 Dose: 999 mls/hr Lactated Ringer's (Ringers, Lactated) 1,000 mls @ 125 mls/hr IV ASDIRECTED [facility] Last Admin: 02/27/17 21:58 Dose: 125 mls/hr Levofloxacin/Dextrose 750 mg/ (Premix) 150 mls @ 100 mls/hr IV Q24H [facility] Piperacillin Sod/Tazobactam (Sod 4.5 gm/ Sodium Chloride) 100 mls @ 200 mls/hr IV ONETIME ONE Stop: 02/28/17 10:59 Last Admin: 02/28/17 11:26 Dose: 200 mls/hr Piperacillin Sod/Tazobactam (Sod 4.5 gm/ Sodium Chloride) 100 mls @ 25 mls/hr IV Q8H [facility] Last Admin: 03/02/17 09:52 Dose: 25 mls/hr Levofloxacin/Dextrose 750 mg/ (Premix) 150 mls @ 100 mls/hr IV Q24H [facility] Last Admin: 03/02/17 16:57 Dose: Not Given Sodium Chloride (Normal Saline) 1,000 mls @ 125 mls/hr IV ASDIRECTED [facility] Last Admin: 03/01/17 05:16 Dose: 125 mls/hr Dextrose/Sodium Chloride (Dextrose 5%-Normal Saline) 1,000 mls @ 125 mls/hr IV ASDIRECTED [facility] Last Admin: 03/02/17 02:46 Dose: 125 mls/hr Sodium Chloride (Normal Saline) 1,000 mls @ 80 mls/hr IV ASDIRECTED [facility] Last Admin: 03/03/17 11:16 Dose: 80 mls/hr Meropenem 1 gm/ Sodium (Chloride) 100 mls @ 200 mls/hr IV Q8H [facility] Vancomycin HCl 1 gm/Vancomycin HCl 250 mg/ Sodium Chloride 250 mls @ 250 mls/ hr IV Q12H [facility] Last Admin: 03/03/17 10:32 Dose: 250 mls/hr Meropenem 1 gm/ Sodium (Chloride) 100 mls @ 200 mls/hr IV Q8H [facility] Stop: 03/05/17 14:00 Last Admin: 03/05/17 09:06 Dose: 200 mls/hr Magnesium Sulfate 2 gm/ Premix 50 mls @ 25 mls/hr IV ONETIME ONE Stop: 03/03/17 12:59 Last Admin: 03/03/17 11:05 Dose: 25 mls/hr Potassium Chloride 10 meq/ (Premix) 100 mls @ 100 mls/hr IV Q1H [facility] Stop: 03/03/17 14:44 Last Admin: 03/03/17 14:46 Dose: 100 mls/hr Vancomycin HCl 1 gm/Vancomycin HCl 250 mg/ Sodium Chloride 250 mls @ 250 mls/ hr IV Q12H [facility] Last Admin: 03/04/17 11:21 Dose: 250 mls/hr Vancomycin HCl 1 gm/Vancomycin HCl 500 mg/ Sodium Chloride 250 mls @ 250 mls/ hr IV Q12H [facility] Last Admin: 03/05/17 00:50 Dose: Not Given Vancomycin HCl 1 gm/Vancomycin HCl 500 mg/ Sodium Chloride 500 mls @ 500 mls/ hr IV Q12H [facility] Last Admin: 03/05/17 00:50 Dose: Not Given Vancomycin HCl 1 gm/Vancomycin HCl 500 mg/ Sodium Chloride 500 mls @ 250 mls/ hr IV Q12H [facility] Last Admin: 03/06/17 17:20 Dose: Not Given Sodium Chloride (Normal Saline) Confirm Administered Dose 500 mls @ as directed .ROUTE .STK-MED ONE Stop: 03/04/17 23:55 Last Admin: 03/05/17 00:09 Dose: Not Given Vancomycin HCl 1 gm/Vancomycin HCl 250 mg/ Sodium Chloride 250 mls @ 166 mls/ hr IV Q8H [facility] Levalbuterol HCl (Xopenex) 1.25 mg NEB QIDRT [facility] Last Admin: 03/04/17 12:07 Dose: Not Given Levalbuterol HCl (Xopenex) Confirm Administered Dose 1.25 mg .ROUTE .STK-MED ONE Stop: 03/04/17 09:25 Last Admin: 03/04/17 09:42 Dose: 1.25 mg Lidocaine HCl (Xylocaine 2% Viscous) 15 ml PO ASDIRECTED PRN PRN Reason: Sore Throat Loperamide HCl (Imodium) 2 mg PO Q4H PRN PRN Reason: Diarrhea Magnesium Hydroxide (Milk Of Magnesia) 30 ml PO ONETIME ONE Stop: 03/01/17 22:04 Last Admin: 03/01/17 23:46 Dose: Not Given Meropenem (Merrem) Confirm Administered Dose 1 gm .ROUTE .STK-MED ONE Stop: 03/03/17 17:34 Last Admin: 03/03/17 17:40 Dose: Not Given Meropenem (Merrem) Confirm Administered Dose 500 mg .ROUTE .STK-MED ONE Stop: 03/05/17 16:21 Last Admin: 03/05/17 16:25 Dose: Not Given Methylprednisolone Sodium Succinate (Solu-Medrol) 40 mg IVPUSH Q12H [facility] Last Admin: 03/02/17 06:17 Dose: 40 mg Methylprednisolone Sodium Succinate (Solu-Medrol) 10 mg IVPUSH DAILY [facility] Last Admin: 03/04/17 09:22 Dose: 10 mg Metoclopramide HCl (Reglan) 10 mg IVPUSH Q6H [facility] Last Admin: 03/04/17 09:16 Dose: 10 mg Metoprolol Tartrate (Lopressor) 5 mg IVPUSH ONETIME ONE Stop: 03/03/17 08:31 Last Admin: 03/03/17 08:38 Dose: 5 mg Metoprolol Tartrate (Lopressor) 5 mg IVPUSH Q5M PRN PRN Reason: for heart rate sustaining >120 Stop: 03/03/17 09:06 Last Admin: 03/03/17 09:03 Dose: 5 mg Metoprolol Tartrate (Lopressor) 5 mg IVPUSH ONETIME ONE Stop: 03/03/17 17:45 Last Admin: 03/03/17 18:08 Dose: 5 mg Metoprolol Tartrate (Lopressor) 10 mg IVPUSH ONETIME ONE Stop: 03/03/17 17:46 Last Admin: 03/03/17 20:20 Dose: Not Given Metoprolol Tartrate (Lopressor) 5 mg IVPUSH ONETIME PRN PRN Reason: Tachycardia Last Admin: 03/03/17 22:05 Dose: 5 mg Metoprolol Tartrate (Lopressor) Confirm Administered Dose 10 mg .ROUTE .STK-MED ONE Stop: 03/04/17 06:13 Last Admin: 03/04/17 16:30 Dose: Not Given Metoprolol Tartrate (Lopressor) 5 mg IVPUSH ONETIME ONE Stop: 03/04/17 06:14 Last Admin: 03/04/17 06:15 Dose: 5 mg Metoprolol Tartrate (Lopressor) 5 mg IVPUSH ONETIME ONE Stop: 03/04/17 16:31 Last Admin: 03/04/17 16:38 Dose: 5 mg Metoprolol Tartrate (Lopressor) 10 mg IVPUSH ONETIME ONE Stop: 03/06/17 11:28 Last Admin: 03/06/17 11:41 Dose: 10 mg Ondansetron HCl (Zofran) 4 mg IVPUSH Q8H PRN PRN Reason: Nausea/Vomiting Oseltamivir Phosphate (Tamiflu) 75 mg PO BID [facility] Stop: 03/04/17 21:01 Last Admin: 03/04/17 09:21 Dose: Not Given Potassium Chloride (Potassium Chloride) 40 meq PO TID [facility] Stop: 03/03/17 15:01 Last Admin: 03/04/17 02:20 Dose: Not Given Saccharomyces Boulardii (Florastor) 250 mg PO DAILY [facility] Last Admin: 03/02/17 09:52 Dose: 250 mg Sertraline HCl (Zoloft) 25 mg PO ONETIME ONE Stop: 03/04/17 15:46 Last Admin: 03/04/17 16:36 Dose: 25 mg Sodium Chloride (Sodium Chloride 0.9%) 3 ml INH QID [facility] Last Admin: 03/04/17 19:40 Dose: Not Given Tbo-Filgrastim (Granix) 480 mcg SQ ONETIME ONE Stop: 03/03/17 17:01 Last Admin: 03/03/17 18:11 Dose: 480 mcg - Exam Physical Findings Comments:: Vitals: as above General: alert and oriented. Appears less weak than yesterday. Psych: calm and cooperative HEENT: normocephalic, atraumatic. EOMI Cardiac: Normal S1, S2. regular rate. No murmurs rubs, or gallops. trace pitting pedal edema Lungs: rales improved, but has coarse expiratory sounds more prominent in R mid and lower lung rabago. Abd: Soft, NT/ND. No HSM noted. Skin: no new rashes or purpura noted Neuro: CN grossly intact. Strength intact and adequate bilaterally. - Problem List & Annotations (1) Neutropenia SNOMED Code(s): 527664856 Code(s): D70.9 - NEUTROPENIA, UNSPECIFIED Status: Acute Current Visit: Yes Qualifiers: Neutropenia type: secondary to cancer chemotherapy Qualified Code(s): D70.1 - Agranulocytosis secondary to cancer chemotherapy (2) Acute bronchitis SNOMED Code(s): 63143900 Code(s): J20.9 - ACUTE BRONCHITIS, UNSPECIFIED Status: Acute Current Visit: Yes Qualifiers: Bronchitis organism: other organism Qualified Code(s): J20.8 - Acute bronchitis due to other specified organisms (3) Dehydration SNOMED Code(s): 73800621 Code(s): E86.0 - DEHYDRATION Status: Acute Current Visit: Yes (4) Hypoxia SNOMED Code(s): 690286784, 451888365 Code(s): R09.02 - HYPOXEMIA Status: Acute Current Visit: Yes (5) Influenza SNOMED Code(s): 5793371 Code(s): J11.1 - FLU DUE TO UNIDENTIFIED INFLUENZA VIRUS W OTH RESP MANIFEST Status: Acute Current Visit: Yes (6) Atrial fibrillation with RVR SNOMED Code(s): 212515536922137 Code(s): I48.91 - UNSPECIFIED ATRIAL FIBRILLATION Status: Acute Current Visit: Yes - Problem List Review Problem List Initiated/Reviewed/Updated: Yes - My Orders Last 24 Hours: My Active Orders 03/06/17 10:24 CULTURE SPUTUM + SMEAR [RM] Stat 03/06/17 13:00 Vancomycin 1 gm Vancomycin 250 mg Sodium Chloride 0.9% [Normal Saline] 250 ml IV Q8H 03/06/17 16:08 Communication Order [RC] ASDIRECTED 03/07/17 02:21 HYDROmorphone [Dilaudid] 1 mg IVPUSH Q2H PRN 03/07/17 07:30 Potassium Chloride [KCl 10 MEQ in Water 100 ML] 10 meq Premix Bag 1 bag IV Q1H 03/07/17 10:15 Metoprolol Tartrate [Lopressor] 50 mg PO BID 03/07/17 12:30 VANCOMYCIN TROUGH [CHEM] Timed - Plan Plan:: Respiratory distress with new onset hypoxia. Secondary to fluid overload, and severe influenza infection given the patient had recent chemotherapy, has neutropenia, and had steroids. diuresed, and respiratory function has improved. Continue monitor closely, and continue supplemental oxygen as needed. Atrial fibrillation with RVR. [id number] score of 0. Anticoagulation is not indicated. Likely do to his lung malignancy, recent chemotherapy and radiation, and ongoing diarrhea and influenza infection. Try to wean diltiazem drip today; will keep in ICU for now. Start PO metoprolol to help wean drip. Acute neurtopenia, and thrombocytopenia. Due to recent chemotherapy as well as acute viral infection. Keep on Neupogen. Neutrophils slowly improving. Continue contact and respiratory precautions as needed. Case discussed with his oncologist Dr. Medel. He recommends continuing him on broad-spectrum empiric antibiotics with vancomycin and meropenem. Keep on IV Abx until his white count improves above 1. Blood and sputum cultures negative. Influenza B infection. Tamiflu was ordered, but patient could not swallow. His cough is improved today. Diurese today as Pt is still shortness of breath and has rales on exam. 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 Patient has completed one of 4 cycles of chemotherapy (which was initiated for palliation as tumor was pressing on his trachea). Difficulty swallowing after RTX to thorax - Video swallow without obstruction, mild dysfunction noted in area where patient describes pain. Greater than [address] Medel states this should improve in couple weeks. Pt continues to improve today; and is not interested in tube feedings. Dehydration, resolved. Given IVF. 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 Need to avoid heparin products. DNR/DNI >96 hours as we are treating multiple conditions mentioned above.
[2017-03-07] MEDS ORDERED: Furosemide 40 MG/4 ML VIAL IVPUSH ONE (10:15)
[2017-03-07] MEDS: Metoprolol Tartrate 50 MG Tab PO SCH ×2 (10:39→20:10)
[2017-03-07] MEDS ORDERED: Diltiazem 125 MG in Sodium Chloride 0.9% 100 ML IV SCH ×2 (11:50→11:59)
[2017-03-08] MEDS: Vancomycin 1 GM, Vancomycin 250 MG in Sodium Chloride 0.9% 250 ML IV SCH (04:03)
[2017-03-08] MEDS: Meropenem 500 MG in Sodium Chloride 0.9% 100 ML IV SCH ×2 (04:03→08:35)
[2017-03-08] MEDS: HYDROmorphone 1 MG/ML Syringe IVPUSH PRN ×5 (04:03→23:46)
[2017-03-08] MEDS: Sodium Chloride 0.9% Inhalation Soln 3 ML Neb INH SCH ×4 (06:27→21:07)
[2017-03-08] MEDS ORDERED: Docusate Sodium 100 MG Cap PO PRN (08:24)
[2017-03-08] MEDS: Pantoprazole 40 MG Vial IVPUSH SCH (08:30)
[2017-03-08] MEDS: Metoprolol Tartrate 50 MG Tab PO SCH ×4 (08:31→21:16)
[2017-03-08] MEDS: Albuterol 6.7 GM Inhaler INH PRN ×2 (10:02→17:13)
--- NOTE | 2017-03-08 12:03 | PCM.PN ---
- General Info Date of Service: 03/08/17 Subjective Update: Feels better, less SOB as well as N/V. Functional Status: Reports: pain controlled, tolerating diet, ambulating, urinating - Review of Systems General: Reports: No Symptoms HEENT: Reports: no symptoms Pulmonary: Reports: no symptoms Cardiovascular: Reports: No Symptoms Gastrointestinal: Reports: No symptoms Genitourinary: Reports: no symptoms Musculoskeletal: Reports: no symptoms Skin: Reports: no symptoms Neurological: Reports: No Symptoms Psychiatric: Reports: no symptoms - Patient Data Vitals - most recent: Last Vital Signs Temp 36.3 C 03/08/17 08:00 Pulse 116 H 03/08/17 08:31 Resp 20 03/08/17 08:00 BP 104/66 03/08/17 08:31 Pulse Ox 94 L 03/08/17 10:06 Weight - most recent: 88.451 kg I&O - last 24 hours: Intake & Output 03/07/17 03/08/17 03/08/17 22:59 06:59 14:59 Intake Total 450 550 Output Total 500 250 Balance -50 300 Lab Results last 24 hrs: Laboratory Results - last 24 hr 03/07/17 03/08/17 03/08/17 Range/Units 12:30 05:47 05:47 WBC 2.18 L* (4.23-9.07) K/mm3 RBC 3.87 L (4.63-6.08) M/mm3 Hgb 10.8 L (13.7-17.5) gm/L Hct 32.1 L (40.1-51.0) % MCV 82.9 (79.0-92.2) fl MCH 27.9 (25.7-32.2) pg MCHC 33.6 (32.2-35.5) g/dl RDW Std Deviation 39.0 (35.1-43.9) fL Plt Count 21 L* (163-337) K/mm3 MPV 10.9 (9.4-12.3) fl Sodium 134 L (136-145) mEq/L Potassium 3.3 L (3.5-5.1) mEq/L Chloride 98 (98-107) mEq/L Carbon Dioxide 31 (21-32) mEq/L Anion Gap 8.3 (5-15) BUN 24 H (7-18) mg/dL Creatinine 0.7 (0.7-1.3) mg/dL Est Cr Clr Drug Dosing 133.74 mL/min Estimated GFR (MDRD) > 60 (>60) mL/min BUN/Creatinine Ratio 34.3 H (14-18) Glucose 81 (74-106) mg/dL Calcium 8.2 L (8.5-10.1) mg/dL Vancomycin Trough 13.4 (10.0-20.0) Ryan Results last 24 hrs: Microbiology 03/06/17 10:24 Gram Stain - Final Sputum - Expectorated Sputum Culture - Final NORMAL RESPIRATORY BENJI 2 DAYS Med Orders - Current: Current Medications Acetaminophen (Tylenol) 650 mg PO Q6H PRN PRN Reason: Fever Last Admin: 03/01/17 09:13 Dose: 650 mg Albuterol (Proventil Hfa) 0 gm INH Q4H PRN PRN Reason: Shortness of Breath Last Admin: 03/08/17 10:02 Dose: 2 puff Benzocaine/Menthol (Cepacol Sore Throat) 1 lozenge MUCMEM Q2HR PRN PRN Reason: Sore Throat Last Admin: 03/01/17 19:19 Dose: 1 lozenge Bisacodyl (Dulcolax) 10 mg PO BID PRN PRN Reason: Constipation Diphenhydr/Magaldrate/Simeth/Lidoca (First-Mouthwash Blm Susp) 30 ml PO ACBED PRN PRN Reason: Sore Throat Docusate Sodium (Colace) 100 mg PO DAILY PRN PRN Reason: Constipation Hydromorphone HCl (Dilaudid) 0.5 mg IVPUSH Q2H PRN PRN Reason: Pain Last Admin: 03/07/17 02:09 Dose: 0.5 mg Hydromorphone HCl (Dilaudid) 1 mg IVPUSH Q2H PRN PRN Reason: Pain (severe 7-10) Last Admin: 03/08/17 04:03 Dose: 1 mg Promethazine HCl 12.5 mg/ (Sodium Chloride) 50.5 mls @ 100 mls/hr IV Q6H PRN PRN Reason: Nausea/Vomiting Diltiazem HCl 125 mg/ Sodium (Chloride) 125 mls @ 5 mls/hr IV TITRATE BELL; 5 MG /HR PRN Reason: Protocol Last Titration: 03/07/17 12:52 Dose: 0 mg/hr, 0 mls/hr Lidocaine HCl (Xylocaine 2% Viscous) 15 ml PO ASDIRECTED PRN PRN Reason: Sore Throat Loperamide HCl (Imodium) 2 mg PO Q4H PRN PRN Reason: Diarrhea Metoprolol Tartrate (Lopressor) 5 mg IVPUSH ONETIME PRN PRN Reason: Tachycardia Metoprolol Tartrate (Lopressor) 50 mg PO Q8HR [facility] Ondansetron HCl (Zofran) 4 mg IVPUSH Q6H PRN PRN Reason: Nausea/Vomiting Pantoprazole Sodium (Protonix Iv) 40 mg IVPUSH DAILY [facility] Last Admin: 03/08/17 08:30 Dose: 40 mg Sodium Chloride (Sodium Chloride 0.9%) 3 ml INH QIDRT [facility] Last Admin: 03/08/17 11:19 Dose: Not Given Tbo-Filgrastim (Granix) 480 mcg SUBCUT DAILY [facility] Last Admin: 03/08/17 08:32 Dose: 480 mcg Temazepam (Restoril) 15 mg PO BEDTIME PRN PRN Reason: Insomnia Discontinued Medications Albuterol (Proventil Neb Soln) 2.5 mg NEB Q4H PRN PRN Reason: Shortness of Breath Barium Sulfate (E-Z-Paste) 454 gm PO ONETIME ONE Stop: 02/28/17 09:59 Last Admin: 02/28/17 14:42 Dose: Not Given Barium Sulfate (E-Z-Hd) 340 gm PO ONETIME ONE Stop: 02/28/17 09:59 Last Admin: 02/28/17 14:42 Dose: Not Given Barium Sulfate (Liquid E-Z Paque) 355 ml PO PREPRO ONE Stop: 02/28/17 09:59 Last Admin: 02/28/17 14:43 Dose: Not Given Diltiazem HCl (Diltiazem) 10 mg IVPUSH ONETIME ONE Stop: 03/03/17 10:40 Last Admin: 03/03/17 11:06 Dose: 10 mg Enoxaparin Sodium (Lovenox) 40 mg SUBCUT DAILY [facility] Furosemide (Lasix) 20 mg IVPUSH NOW ONE Stop: 03/04/17 15:09 Last Admin: 03/04/17 15:27 Dose: 20 mg Furosemide (Lasix) 20 mg IVPUSH NOW ONE Stop: 03/06/17 08:47 Last Admin: 03/06/17 09:02 Dose: 20 mg Furosemide (Lasix) 20 mg IVPUSH NOW ONE Stop: 03/06/17 10:17 Last Admin: 03/06/17 11:25 Dose: Not Given Furosemide (Lasix) 20 mg IVPUSH NOW ONE Stop: 03/06/17 10:17 Last Admin: 03/06/17 11:41 Dose: Not Given Furosemide (Lasix) 20 mg IVPUSH ONETIME ONE Stop: 03/07/17 02:23 Last Admin: 03/07/17 02:29 Dose: 20 mg Furosemide (Lasix) Confirm Administered Dose 20 mg .ROUTE .STK-MED ONE Stop: 03/07/17 02:26 Last Admin: 03/07/17 02:32 Dose: Not Given Furosemide (Lasix) 20 mg IVPUSH NOW ONE Stop: 03/07/17 10:16 Last Admin: 03/07/17 10:40 Dose: 20 mg Sodium Chloride (Normal Saline) 1,000 mls @ 150 mls/hr IV ONETIME ONE Stop: 02/27/17 20:19 Last Admin: 02/27/17 14:21 Dose: 150 mls/hr Lactated Ringer's (Ringers, Lactated) 1,000 mls @ 999 mls/hr IV Q1H [facility] Stop: 02/27/17 20:44 Last Admin: 02/27/17 20:53 Dose: 999 mls/hr Lactated Ringer's (Ringers, Lactated) 1,000 mls @ 125 mls/hr IV ASDIRECTED [facility] Last Admin: 02/27/17 21:58 Dose: 125 mls/hr Levofloxacin/Dextrose 750 mg/ (Premix) 150 mls @ 100 mls/hr IV Q24H [facility] Piperacillin Sod/Tazobactam (Sod 4.5 gm/ Sodium Chloride) 100 mls @ 200 mls/hr IV ONETIME ONE Stop: 02/28/17 10:59 Last Admin: 02/28/17 11:26 Dose: 200 mls/hr Piperacillin Sod/Tazobactam (Sod 4.5 gm/ Sodium Chloride) 100 mls @ 25 mls/hr IV Q8H [facility] Last Admin: 03/02/17 09:52 Dose: 25 mls/hr Levofloxacin/Dextrose 750 mg/ (Premix) 150 mls @ 100 mls/hr IV Q24H [facility] Last Admin: 03/02/17 16:57 Dose: Not Given Sodium Chloride (Normal Saline) 1,000 mls @ 125 mls/hr IV ASDIRECTED [facility] Last Admin: 03/01/17 05:16 Dose: 125 mls/hr Dextrose/Sodium Chloride (Dextrose 5%-Normal Saline) 1,000 mls @ 125 mls/hr IV ASDIRECTED [facility] Last Admin: 03/02/17 02:46 Dose: 125 mls/hr Sodium Chloride (Normal Saline) 1,000 mls @ 80 mls/hr IV ASDIRECTED [facility] Last Admin: 03/03/17 11:16 Dose: 80 mls/hr Meropenem 1 gm/ Sodium (Chloride) 100 mls @ 200 mls/hr IV Q8H [facility] Vancomycin HCl 1 gm/Vancomycin HCl 250 mg/ Sodium Chloride 250 mls @ 250 mls/ hr IV Q12H [facility] Last Admin: 03/03/17 10:32 Dose: 250 mls/hr Meropenem 1 gm/ Sodium (Chloride) 100 mls @ 200 mls/hr IV Q8H [facility] Stop: 03/05/17 14:00 Last Admin: 03/05/17 09:06 Dose: 200 mls/hr Magnesium Sulfate 2 gm/ Premix 50 mls @ 25 mls/hr IV ONETIME ONE Stop: 03/03/17 12:59 Last Admin: 03/03/17 11:05 Dose: 25 mls/hr Diltiazem HCl 100 mg/ Sodium (Chloride) 100 mls @ 5 mls/hr IV TITRATE BELL; 5 MG /HR PRN Reason: Protocol Last Titration: 03/07/17 09:40 Dose: 0 mg/hr, 0 mls/hr Potassium Chloride 10 meq/ (Premix) 100 mls @ 100 mls/hr IV Q1H [facility] Stop: 03/03/17 14:44 Last Admin: 03/03/17 14:46 Dose: 100 mls/hr Vancomycin HCl 1 gm/Vancomycin HCl 250 mg/ Sodium Chloride 250 mls @ 250 mls/ hr IV Q12H [facility] Last Admin: 03/04/17 11:21 Dose: 250 mls/hr Meropenem 500 mg/ Sodium (Chloride) 100 mls @ 200 mls/hr IV Q6H [facility] Last Admin: 03/08/17 08:35 Dose: 200 mls/hr Vancomycin HCl 1 gm/Vancomycin HCl 500 mg/ Sodium Chloride 250 mls @ 250 mls/ hr IV Q12H [facility] Last Admin: 03/05/17 00:50 Dose: Not Given Vancomycin HCl 1 gm/Vancomycin HCl 500 mg/ Sodium Chloride 500 mls @ 500 mls/ hr IV Q12H [facility] Last Admin: 03/05/17 00:50 Dose: Not Given Vancomycin HCl 1 gm/Vancomycin HCl 500 mg/ Sodium Chloride 500 mls @ 250 mls/ hr IV Q12H [facility] Last Admin: 03/06/17 17:20 Dose: Not Given Sodium Chloride (Normal Saline) Confirm Administered Dose 500 mls @ as directed .ROUTE .[employer] ONE Stop: 03/04/17 23:55 Last Admin: 03/05/17 00:09 Dose: Not Given Vancomycin HCl 1 gm/Vancomycin HCl 250 mg/ Sodium Chloride 250 mls @ 166 mls/ hr IV Q8H [facility] Vancomycin HCl 1 gm/Vancomycin HCl 250 mg/ Sodium Chloride 250 mls @ 166 mls/ hr IV Q8H [facility] Last Admin: 03/08/17 04:03 Dose: 166 mls/hr Potassium Chloride 10 meq/ (Premix) 100 mls @ 100 mls/hr IV Q1H [facility] Stop: 03/07/17 17:29 Last Admin: 03/07/17 16:24 Dose: 100 mls/hr Diltiazem HCl 125 mg/ Sodium (Chloride) 125 mls @ 5 mls/hr IV TITRATE BELL; 5 MG /HR PRN Reason: Protocol Levalbuterol HCl (Xopenex) 1.25 mg NEB QIDRT [facility] Last Admin: 03/04/17 12:07 Dose: Not Given Levalbuterol HCl (Xopenex) Confirm Administered Dose 1.25 mg .ROUTE .[employer]-MED ONE Stop: 03/04/17 09:25 Last Admin: 03/04/17 09:42 Dose: 1.25 mg Lidocaine HCl (Xylocaine 2% Viscous) 15 ml PO ASDIRECTED PRN PRN Reason: Sore Throat Loperamide HCl (Imodium) 2 mg PO Q4H PRN PRN Reason: Diarrhea Magnesium Hydroxide (Milk Of Magnesia) 30 ml PO ONETIME ONE Stop: 03/01/17 22:04 Last Admin: 03/01/17 23:46 Dose: Not Given Meropenem (Merrem) Confirm Administered Dose 1 gm .ROUTE .STK-MED ONE Stop: 03/03/17 17:34 Last Admin: 03/03/17 17:40 Dose: Not Given Meropenem (Merrem) Confirm Administered Dose 500 mg .ROUTE .STK-MED ONE Stop: 03/05/17 16:21 Last Admin: 03/05/17 16:25 Dose: Not Given Methylprednisolone Sodium Succinate (Solu-Medrol) 40 mg IVPUSH Q12H [facility] Last Admin: 03/02/17 06:17 Dose: 40 mg Methylprednisolone Sodium Succinate (Solu-Medrol) 10 mg IVPUSH DAILY [facility] Last Admin: 03/04/17 09:22 Dose: 10 mg Metoclopramide HCl (Reglan) 10 mg IVPUSH Q6H [facility] Last Admin: 03/04/17 09:16 Dose: 10 mg Metoprolol Tartrate (Lopressor) 5 mg IVPUSH ONETIME ONE Stop: 03/03/17 08:31 Last Admin: 03/03/17 08:38 Dose: 5 mg Metoprolol Tartrate (Lopressor) 5 mg IVPUSH Q5M PRN PRN Reason: for heart rate sustaining >120 Stop: 03/03/17 09:06 Last Admin: 03/03/17 09:03 Dose: 5 mg Metoprolol Tartrate (Lopressor) 5 mg IVPUSH ONETIME ONE Stop: 03/03/17 17:45 Last Admin: 03/03/17 18:08 Dose: 5 mg Metoprolol Tartrate (Lopressor) 10 mg IVPUSH ONETIME ONE Stop: 03/03/17 17:46 Last Admin: 03/03/17 20:20 Dose: Not Given Metoprolol Tartrate (Lopressor) 5 mg IVPUSH ONETIME PRN PRN Reason: Tachycardia Last Admin: 03/03/17 22:05 Dose: 5 mg Metoprolol Tartrate (Lopressor) Confirm Administered Dose 10 mg .ROUTE .STK-MED ONE Stop: 03/04/17 06:13 Last Admin: 03/04/17 16:30 Dose: Not Given Metoprolol Tartrate (Lopressor) 5 mg IVPUSH ONETIME ONE Stop: 03/04/17 06:14 Last Admin: 03/04/17 06:15 Dose: 5 mg Metoprolol Tartrate (Lopressor) 5 mg IVPUSH ONETIME ONE Stop: 03/04/17 16:31 Last Admin: 03/04/17 16:38 Dose: 5 mg Metoprolol Tartrate (Lopressor) 10 mg IVPUSH ONETIME ONE Stop: 03/06/17 11:28 Last Admin: 03/06/17 11:41 Dose: 10 mg Metoprolol Tartrate (Lopressor) 50 mg PO BID [facility] Last Admin: 03/08/17 08:31 Dose: 50 mg Ondansetron HCl (Zofran) 4 mg IVPUSH Q8H PRN PRN Reason: Nausea/Vomiting Oseltamivir Phosphate (Tamiflu) 75 mg PO BID [facility] Stop: 03/04/17 21:01 Last Admin: 03/04/17 09:21 Dose: Not Given Potassium Chloride (Potassium Chloride) 40 meq PO TID [facility] Stop: 03/03/17 15:01 Last Admin: 03/04/17 02:20 Dose: Not Given Saccharomyces Boulardii (Florastor) 250 mg PO DAILY [facility] Last Admin: 03/02/17 09:52 Dose: 250 mg Sertraline HCl (Zoloft) 25 mg PO ONETIME ONE Stop: 03/04/17 15:46 Last Admin: 03/04/17 16:36 Dose: 25 mg Sodium Chloride (Sodium Chloride 0.9%) 3 ml INH QID [facility] Last Admin: 03/04/17 19:40 Dose: Not Given Tbo-Filgrastim (Granix) 480 mcg SQ ONETIME ONE Stop: 03/03/17 17:01 Last Admin: 03/03/17 18:11 Dose: 480 mcg Vancomycin HCl (Pharmacy To Dose - Vancomycin) 1 dose .XX ASDIRECTED [facility] - Exam Quality Assessment: DVT prophylaxis General: alert, oriented, cooperative, no acute distress HEENT: Pupils equal, Pupils reactive Neck: supple, trachea midline Lungs: Normal respiratory effort Cardiovascular: Regular Rate Abdomen: bowel sounds present, soft, no tenderness, no distension (Male) Exam: Deferred Back Exam: normal inspection Extremities: no edema, normal pulses Skin: warm Neurological: no new focal deficit, normal gait, normal speech Psy/Mental Status: alert, normal affect, normal mood - Problem List & Annotations (1) Dehydration SNOMED Code(s): 17143391 Code(s): E86.0 - DEHYDRATION Status: Acute Current Visit: Yes (2) Hypoxia SNOMED Code(s): 857916966, 378621414 Code(s): R09.02 - HYPOXEMIA Status: Acute Current Visit: Yes (3) Influenza SNOMED Code(s): 8689140 Code(s): J11.1 - FLU DUE TO UNIDENTIFIED INFLUENZA VIRUS W OTH RESP MANIFEST Status: Acute Current Visit: Yes (4) Neutropenia SNOMED Code(s): 857132679 Code(s): D70.9 - NEUTROPENIA, UNSPECIFIED Status: Acute Current Visit: Yes Qualifiers: Neutropenia type: secondary to cancer chemotherapy Qualified Code(s): D70.1 - Agranulocytosis secondary to cancer chemotherapy - Problem List Review Problem List Initiated/Reviewed/Updated: Yes - My Orders Last 24 Hours: My Active Orders 03/08/17 08:24 Docusate Sodium [Colace] 100 mg PO DAILY PRN 03/08/17 14:00 Metoprolol Tartrate [Lopressor] 50 mg PO Q8HR 03/10/17 07:00 CBC W/O DIFF,HEMOGRAM [HEME] MOTH@0700 03/13/17 07:00 CBC W/O DIFF,HEMOGRAM [HEME] MOTH@0700 03/17/17 07:00 CBC W/O DIFF,HEMOGRAM [HEME] MOTH@0700 03/20/17 07:00 CBC W/O DIFF,HEMOGRAM [HEME] MOTH@0700 - Plan Plan:: Respiratory distress with new onset hypoxia. Secondary to fluid overload, and severe influenza infection given the patient had recent chemotherapy, has neutropenia, and had steroids. diuresed, and respiratory function has improved. Continue monitor closely, and continue supplemental oxygen as needed. Atrial fibrillation with RVR. [id number] score of 0. Anticoagulation is not indicated. Likely do to his lung malignancy, recent chemotherapy and radiation, and ongoing diarrhea and influenza infection. Try to wean diltiazem drip today; will keep in ICU for now. Start PO metoprolol to help wean drip. Metorpolol increased 50 mg po Q8 hours Acute neurtopenia, and thrombocytopenia. Due to recent chemotherapy as well as acute viral infection. Keep on Neupogen. Neutrophils slowly improving. Continue contact and respiratory precautions as needed. Case discussed with his oncologist Dr. Medel. He recommends continuing him on broad-spectrum empiric antibiotics with vancomycin and meropenem. Keep on IV Abx until his white count improves above 1. Blood and sputum cultures negative. Stopped reverse isolation Influenza B infection. Tamiflu was ordered, but patient could not swallow. His cough is improved today. Diurese today as Pt is still shortness of breath and has rales on exam. 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 Patient has completed one of 4 cycles of chemotherapy (which was initiated for palliation as tumor was pressing on his trachea). Difficulty swallowing after RTX to thorax - Video swallow without obstruction, mild dysfunction noted in area where patient describes pain. Greater than [address] Medel states this should improve in couple weeks. Pt continues to improve today; and is not interested in tube feedings. Dehydration, resolved. Given IVF. 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 Need to avoid heparin products. DNR/DNI >96 hours as we are treating multiple conditions mentioned above.
[2017-03-09] MEDS: Metoprolol Tartrate 50 MG Tab PO SCH (05:15)
[2017-03-09] MEDS: Sodium Chloride 0.9% Inhalation Soln 3 ML Neb INH SCH ×4 (06:37→21:05)
[2017-03-09] MEDS: HYDROmorphone 1 MG/ML Syringe IVPUSH PRN ×3 (07:38→21:49)
[2017-03-09] MEDS: Pantoprazole 40 MG Vial IVPUSH SCH (09:14)
--- NOTE | 2017-03-09 09:21 | PCM.PN ---
- General Info Date of Service: 03/09/17 Subjective Update: Complaints of SOB with occasional cough, denies sputum. Functional Status: Reports: tolerating diet (somewhat, continued dec oral intake ), ambulating, urinating - Review of Systems General: Reports: Weakness, Fatigue HEENT: Reports: no symptoms Pulmonary: Reports: shortness of breath. Denies: no symptoms Cardiovascular: Reports: No Symptoms Gastrointestinal: Reports: No symptoms Genitourinary: Reports: no symptoms Musculoskeletal: Reports: no symptoms Skin: Reports: no symptoms Neurological: Reports: No Symptoms Psychiatric: Reports: no symptoms - Patient Data Vitals - most recent: Last Vital Signs Temp 36.5 C 03/09/17 07:54 Pulse 105 H 03/09/17 05:15 Resp 18 03/09/17 07:54 BP 104/77 03/09/17 07:54 Pulse Ox 92 L 03/09/17 07:54 Weight - most recent: 91.036 kg I&O - last 24 hours: Intake & Output 03/08/17 03/09/17 03/09/17 22:59 06:59 14:59 Intake Total 1620 240 Output Total 600 300 Balance 1020 -60 Lab Results last 24 hrs: Laboratory Results - last 24 hr 03/09/17 03/09/17 Range/Units 05:30 05:30 WBC 5.78 (4.23-9.07) K/mm3 RBC 4.21 L (4.63-6.08) M/mm3 Hgb 11.6 L (13.7-17.5) gm/L Hct 34.3 L (40.1-51.0) % MCV 81.5 (79.0-92.2) fl MCH 27.6 (25.7-32.2) pg MCHC 33.8 (32.2-35.5) g/dl RDW Std Deviation 37.7 (35.1-43.9) fL Plt Count 27 L (163-337) K/mm3 MPV 9.8 (9.4-12.3) fl Neut % (Auto) 62.9 (34.0-67.9) % Lymph % (Auto) 6.7 L (21.8-53.1) % Hayes % (Auto) 13.3 H (5.3-12.2) % Eos % (Auto) 1.0 (0.8-7.0) Baso % (Auto) 0.5 (0.1-1.2) % Neut # (Auto) 3.63 (1.78-5.38) K/mm3 Lymph # (Auto) 0.39 L (1.32-3.57) K/mm3 Hayes # (Auto) 0.77 (0.30-0.82) K/mm3 Eos # (Auto) 0.06 (0.04-0.54) K/mm3 Baso # (Auto) 0.03 (0.01-0.08) K/mm3 Manual Slide Review Abnormal smear Sodium 136 (136-145) mEq/L Potassium 3.2 L (3.5-5.1) mEq/L Chloride 97 L (98-107) mEq/L Carbon Dioxide 32 (21-32) mEq/L Anion Gap 10.2 (5-15) BUN 23 H (7-18) mg/dL Creatinine 0.8 (0.7-1.3) mg/dL Est Cr Clr Drug Dosing 117.02 mL/min Estimated GFR (MDRD) > 60 (>60) mL/min BUN/Creatinine Ratio 28.8 H (14-18) Glucose 104 (74-106) mg/dL Calcium 8.6 (8.5-10.1) mg/dL Magnesium 1.7 L (1.8-2.4) mg/dl Ryan Results last 24 hrs: Microbiology 03/06/17 10:24 Gram Stain - Final Sputum - Expectorated Sputum Culture - Final NORMAL RESPIRATORY BENJI 2 DAYS Med Orders - Current: Current Medications Acetaminophen (Tylenol) 650 mg PO Q6H PRN PRN Reason: Fever Last Admin: 03/01/17 09:13 Dose: 650 mg Albuterol (Proventil Hfa) 0 gm INH Q4H PRN PRN Reason: Shortness of Breath Last Admin: 03/08/17 17:13 Dose: 2 puff Benzocaine/Menthol (Cepacol Sore Throat) 1 lozenge MUCMEM Q2HR PRN PRN Reason: Sore Throat Last Admin: 03/01/17 19:19 Dose: 1 lozenge Bisacodyl (Dulcolax) 10 mg PO BID PRN PRN Reason: Constipation Diphenhydr/Magaldrate/Simeth/Lidoca (First-Mouthwash Blm Susp) 30 ml PO ACBED PRN PRN Reason: Sore Throat Docusate Sodium (Colace) 100 mg PO DAILY PRN PRN Reason: Constipation Hydromorphone HCl (Dilaudid) 0.5 mg IVPUSH Q2H PRN PRN Reason: Pain Last Admin: 03/07/17 02:09 Dose: 0.5 mg Hydromorphone HCl (Dilaudid) 1 mg IVPUSH Q2H PRN PRN Reason: Pain (severe 7-10) Last Admin: 03/09/17 07:38 Dose: 1 mg Promethazine HCl 12.5 mg/ (Sodium Chloride) 50.5 mls @ 100 mls/hr IV Q6H PRN PRN Reason: Nausea/Vomiting Diltiazem HCl 125 mg/ Sodium (Chloride) 125 mls @ 5 mls/hr IV TITRATE BELL; 5 MG /HR PRN Reason: Protocol Last Titration: 03/07/17 12:52 Dose: 0 mg/hr, 0 mls/hr Lidocaine HCl (Xylocaine 2% Viscous) 15 ml PO ASDIRECTED PRN PRN Reason: Sore Throat Loperamide HCl (Imodium) 2 mg PO Q4H PRN PRN Reason: Diarrhea Metoprolol Tartrate (Lopressor) 5 mg IVPUSH ONETIME PRN PRN Reason: Tachycardia Metoprolol Tartrate (Lopressor) 50 mg PO Q8HR [facility] Last Admin: 03/09/17 05:15 Dose: 50 mg Ondansetron HCl (Zofran) 4 mg IVPUSH Q6H PRN PRN Reason: Nausea/Vomiting Pantoprazole Sodium (Protonix Iv) 40 mg IVPUSH DAILY [facility] Last Admin: 03/09/17 09:14 Dose: 40 mg Sodium Chloride (Sodium Chloride 0.9%) 3 ml INH QIDRT [facility] Last Admin: 03/09/17 06:37 Dose: 3 ml Tbo-Filgrastim (Granix) 480 mcg SUBCUT DAILY [facility] Last Admin: 03/09/17 09:14 Dose: 480 mcg Temazepam (Restoril) 15 mg PO BEDTIME PRN PRN Reason: Insomnia Discontinued Medications Albuterol (Proventil Neb Soln) 2.5 mg NEB Q4H PRN PRN Reason: Shortness of Breath Barium Sulfate (E-Z-Paste) 454 gm PO ONETIME ONE Stop: 02/28/17 09:59 Last Admin: 02/28/17 14:42 Dose: Not Given Barium Sulfate (E-Z-Hd) 340 gm PO ONETIME ONE Stop: 02/28/17 09:59 Last Admin: 02/28/17 14:42 Dose: Not Given Barium Sulfate (Liquid E-Z Paque) 355 ml PO PREPRO ONE Stop: 02/28/17 09:59 Last Admin: 02/28/17 14:43 Dose: Not Given Diltiazem HCl (Diltiazem) 10 mg IVPUSH ONETIME ONE Stop: 03/03/17 10:40 Last Admin: 03/03/17 11:06 Dose: 10 mg Enoxaparin Sodium (Lovenox) 40 mg SUBCUT DAILY [facility] Furosemide (Lasix) 20 mg IVPUSH NOW ONE Stop: 03/04/17 15:09 Last Admin: 03/04/17 15:27 Dose: 20 mg Furosemide (Lasix) 20 mg IVPUSH NOW ONE Stop: 03/06/17 08:47 Last Admin: 03/06/17 09:02 Dose: 20 mg Furosemide (Lasix) 20 mg IVPUSH NOW ONE Stop: 03/06/17 10:17 Last Admin: 03/06/17 11:25 Dose: Not Given Furosemide (Lasix) 20 mg IVPUSH NOW ONE Stop: 03/06/17 10:17 Last Admin: 03/06/17 11:41 Dose: Not Given Furosemide (Lasix) 20 mg IVPUSH ONETIME ONE Stop: 03/07/17 02:23 Last Admin: 03/07/17 02:29 Dose: 20 mg Furosemide (Lasix) Confirm Administered Dose 20 mg .ROUTE .STK-MED ONE Stop: 03/07/17 02:26 Last Admin: 03/07/17 02:32 Dose: Not Given Furosemide (Lasix) 20 mg IVPUSH NOW ONE Stop: 03/07/17 10:16 Last Admin: 03/07/17 10:40 Dose: 20 mg Sodium Chloride (Normal Saline) 1,000 mls @ 150 mls/hr IV ONETIME ONE Stop: 02/27/17 20:19 Last Admin: 02/27/17 14:21 Dose: 150 mls/hr Lactated Ringer's (Ringers, Lactated) 1,000 mls @ 999 mls/hr IV Q1H [facility] Stop: 02/27/17 20:44 Last Admin: 02/27/17 20:53 Dose: 999 mls/hr Lactated Ringer's (Ringers, Lactated) 1,000 mls @ 125 mls/hr IV ASDIRECTED [facility] Last Admin: 02/27/17 21:58 Dose: 125 mls/hr Levofloxacin/Dextrose 750 mg/ (Premix) 150 mls @ 100 mls/hr IV Q24H [facility] Piperacillin Sod/Tazobactam (Sod 4.5 gm/ Sodium Chloride) 100 mls @ 200 mls/hr IV ONETIME ONE Stop: 02/28/17 10:59 Last Admin: 02/28/17 11:26 Dose: 200 mls/hr Piperacillin Sod/Tazobactam (Sod 4.5 gm/ Sodium Chloride) 100 mls @ 25 mls/hr IV Q8H [facility] Last Admin: 03/02/17 09:52 Dose: 25 mls/hr Levofloxacin/Dextrose 750 mg/ (Premix) 150 mls @ 100 mls/hr IV Q24H [facility] Last Admin: 03/02/17 16:57 Dose: Not Given Sodium Chloride (Normal Saline) 1,000 mls @ 125 mls/hr IV ASDIRECTED [facility] Last Admin: 03/01/17 05:16 Dose: 125 mls/hr Dextrose/Sodium Chloride (Dextrose 5%-Normal Saline) 1,000 mls @ 125 mls/hr IV ASDIRECTED [facility] Last Admin: 03/02/17 02:46 Dose: 125 mls/hr Sodium Chloride (Normal Saline) 1,000 mls @ 80 mls/hr IV ASDIRECTED [facility] Last Admin: 03/03/17 11:16 Dose: 80 mls/hr Meropenem 1 gm/ Sodium (Chloride) 100 mls @ 200 mls/hr IV Q8H [facility] Vancomycin HCl 1 gm/Vancomycin HCl 250 mg/ Sodium Chloride 250 mls @ 250 mls/ hr IV Q12H [facility] Last Admin: 03/03/17 10:32 Dose: 250 mls/hr Meropenem 1 gm/ Sodium (Chloride) 100 mls @ 200 mls/hr IV Q8H [facility] Stop: 03/05/17 14:00 Last Admin: 03/05/17 09:06 Dose: 200 mls/hr Magnesium Sulfate 2 gm/ Premix 50 mls @ 25 mls/hr IV ONETIME ONE Stop: 03/03/17 12:59 Last Admin: 03/03/17 11:05 Dose: 25 mls/hr Diltiazem HCl 100 mg/ Sodium (Chloride) 100 mls @ 5 mls/hr IV TITRATE BELL; 5 MG /HR PRN Reason: Protocol Last Titration: 03/07/17 09:40 Dose: 0 mg/hr, 0 mls/hr Potassium Chloride 10 meq/ (Premix) 100 mls @ 100 mls/hr IV Q1H [facility] Stop: 03/03/17 14:44 Last Admin: 03/03/17 14:46 Dose: 100 mls/hr Vancomycin HCl 1 gm/Vancomycin HCl 250 mg/ Sodium Chloride 250 mls @ 250 mls/ hr IV Q12H [facility] Last Admin: 03/04/17 11:21 Dose: 250 mls/hr Meropenem 500 mg/ Sodium (Chloride) 100 mls @ 200 mls/hr IV Q6H [facility] Last Admin: 03/08/17 08:35 Dose: 200 mls/hr Vancomycin HCl 1 gm/Vancomycin HCl 500 mg/ Sodium Chloride 250 mls @ 250 mls/ hr IV Q12H [facility] Last Admin: 03/05/17 00:50 Dose: Not Given Vancomycin HCl 1 gm/Vancomycin HCl 500 mg/ Sodium Chloride 500 mls @ 500 mls/ hr IV Q12H [facility] Last Admin: 03/05/17 00:50 Dose: Not Given Vancomycin HCl 1 gm/Vancomycin HCl 500 mg/ Sodium Chloride 500 mls @ 250 mls/ hr IV Q12H [facility] Last Admin: 03/06/17 17:20 Dose: Not Given Sodium Chloride (Normal Saline) Confirm Administered Dose 500 mls @ as directed .ROUTE .STK-MED ONE Stop: 03/04/17 23:55 Last Admin: 03/05/17 00:09 Dose: Not Given Vancomycin HCl 1 gm/Vancomycin HCl 250 mg/ Sodium Chloride 250 mls @ 166 mls/ hr IV Q8H [facility] Vancomycin HCl 1 gm/Vancomycin HCl 250 mg/ Sodium Chloride 250 mls @ 166 mls/ hr IV Q8H [facility] Last Admin: 03/08/17 04:03 Dose: 166 mls/hr Potassium Chloride 10 meq/ (Premix) 100 mls @ 100 mls/hr IV Q1H [facility] Stop: 03/07/17 17:29 Last Admin: 03/07/17 16:24 Dose: 100 mls/hr Diltiazem HCl 125 mg/ Sodium (Chloride) 125 mls @ 5 mls/hr IV TITRATE BELL; 5 MG /HR PRN Reason: Protocol Levalbuterol HCl (Xopenex) 1.25 mg NEB QIDRT [facility] Last Admin: 03/04/17 12:07 Dose: Not Given Levalbuterol HCl (Xopenex) Confirm Administered Dose 1.25 mg .ROUTE .STK-MED ONE Stop: 03/04/17 09:25 Last Admin: 03/04/17 09:42 Dose: 1.25 mg Lidocaine HCl (Xylocaine 2% Viscous) 15 ml PO ASDIRECTED PRN PRN Reason: Sore Throat Loperamide HCl (Imodium) 2 mg PO Q4H PRN PRN Reason: Diarrhea Magnesium Hydroxide (Milk Of Magnesia) 30 ml PO ONETIME ONE Stop: 03/01/17 22:04 Last Admin: 03/01/17 23:46 Dose: Not Given Meropenem (Merrem) Confirm Administered Dose 1 gm .ROUTE .STK-MED ONE Stop: 03/03/17 17:34 Last Admin: 03/03/17 17:40 Dose: Not Given Meropenem (Merrem) Confirm Administered Dose 500 mg .ROUTE .STK-MED ONE Stop: 03/05/17 16:21 Last Admin: 03/05/17 16:25 Dose: Not Given Methylprednisolone Sodium Succinate (Solu-Medrol) 40 mg IVPUSH Q12H [facility] Last Admin: 03/02/17 06:17 Dose: 40 mg Methylprednisolone Sodium Succinate (Solu-Medrol) 10 mg IVPUSH DAILY [facility] Last Admin: 03/04/17 09:22 Dose: 10 mg Metoclopramide HCl (Reglan) 10 mg IVPUSH Q6H [facility] Last Admin: 03/04/17 09:16 Dose: 10 mg Metoprolol Tartrate (Lopressor) 5 mg IVPUSH ONETIME ONE Stop: 03/03/17 08:31 Last Admin: 03/03/17 08:38 Dose: 5 mg Metoprolol Tartrate (Lopressor) 5 mg IVPUSH Q5M PRN PRN Reason: for heart rate sustaining >120 Stop: 03/03/17 09:06 Last Admin: 03/03/17 09:03 Dose: 5 mg Metoprolol Tartrate (Lopressor) 5 mg IVPUSH ONETIME ONE Stop: 03/03/17 17:45 Last Admin: 03/03/17 18:08 Dose: 5 mg Metoprolol Tartrate (Lopressor) 10 mg IVPUSH ONETIME ONE Stop: 03/03/17 17:46 Last Admin: 03/03/17 20:20 Dose: Not Given Metoprolol Tartrate (Lopressor) 5 mg IVPUSH ONETIME PRN PRN Reason: Tachycardia Last Admin: 03/03/17 22:05 Dose: 5 mg Metoprolol Tartrate (Lopressor) Confirm Administered Dose 10 mg .ROUTE .STK-MED ONE Stop: 03/04/17 06:13 Last Admin: 03/04/17 16:30 Dose: Not Given Metoprolol Tartrate (Lopressor) 5 mg IVPUSH ONETIME ONE Stop: 03/04/17 06:14 Last Admin: 03/04/17 06:15 Dose: 5 mg Metoprolol Tartrate (Lopressor) 5 mg IVPUSH ONETIME ONE Stop: 03/04/17 16:31 Last Admin: 03/04/17 16:38 Dose: 5 mg Metoprolol Tartrate (Lopressor) 10 mg IVPUSH ONETIME ONE Stop: 03/06/17 11:28 Last Admin: 03/06/17 11:41 Dose: 10 mg Metoprolol Tartrate (Lopressor) 50 mg PO BID [facility] Last Admin: 03/08/17 08:31 Dose: 50 mg Ondansetron HCl (Zofran) 4 mg IVPUSH Q8H PRN PRN Reason: Nausea/Vomiting Oseltamivir Phosphate (Tamiflu) 75 mg PO BID [facility] Stop: 03/04/17 21:01 Last Admin: 03/04/17 09:21 Dose: Not Given Potassium Chloride (Potassium Chloride) 40 meq PO TID [facility] Stop: 03/03/17 15:01 Last Admin: 03/04/17 02:20 Dose: Not Given Saccharomyces Boulardii (Florastor) 250 mg PO DAILY [facility] Last Admin: 03/02/17 09:52 Dose: 250 mg Sertraline HCl (Zoloft) 25 mg PO ONETIME ONE Stop: 03/04/17 15:46 Last Admin: 03/04/17 16:36 Dose: 25 mg Sodium Chloride (Sodium Chloride 0.9%) 3 ml INH QID [facility] Last Admin: 03/04/17 19:40 Dose: Not Given Tbo-Filgrastim (Granix) 480 mcg SQ ONETIME ONE Stop: 03/03/17 17:01 Last Admin: 03/03/17 18:11 Dose: 480 mcg Vancomycin HCl (Pharmacy To Dose - Vancomycin) 1 dose .XX ASDIRECTED [facility] - Exam Quality Assessment: supplemental oxygen, central line/PICC, DVT prophylaxis General: alert, oriented, cooperative HEENT: Pupils equal, Pupils reactive, EOMI Neck: supple, trachea midline Lungs: Normal respiratory effort, Decreased breath sounds, Wheezing Cardiovascular: Regular Rate, Tachycardia Abdomen: bowel sounds present, soft, no tenderness, no distension (Male) Exam: Deferred. No: No hernia, Normal inspection Back Exam: normal inspection Extremities: no edema, normal pulses Skin: warm Neurological: no new focal deficit, normal gait, normal speech Psy/Mental Status: alert, normal affect, normal mood - Problem List & Annotations (1) Dehydration SNOMED Code(s): 14513585 Code(s): E86.0 - DEHYDRATION Status: Acute Current Visit: Yes (2) Hypoxia SNOMED Code(s): 508181533, 516770137 Code(s): R09.02 - HYPOXEMIA Status: Acute Current Visit: Yes (3) Influenza SNOMED Code(s): 5493208 Code(s): J11.1 - FLU DUE TO UNIDENTIFIED INFLUENZA VIRUS W OTH RESP MANIFEST Status: Acute Current Visit: Yes (4) Neutropenia SNOMED Code(s): 618465270 Code(s): D70.9 - NEUTROPENIA, UNSPECIFIED Status: Acute Current Visit: Yes Qualifiers: Neutropenia type: secondary to cancer chemotherapy Qualified Code(s): D70.1 - Agranulocytosis secondary to cancer chemotherapy - Problem List Review Problem List Initiated/Reviewed/Updated: Yes - My Orders Last 24 Hours: My Active Orders 03/08/17 08:24 Docusate Sodium [Colace] 100 mg PO DAILY PRN 03/08/17 14:00 Metoprolol Tartrate [Lopressor] 50 mg PO Q8HR 04/09/17 09:06 EKG 12 Lead [EKG Documentation Completion] [RC] ROUTINE 03/10/17 05:00 BASIC METABOLIC PANEL,BMP [CHEM] DAILY CBC WITH AUTO DIFF [HEME] DAILY MAGNESIUM [CHEM] DAILY 03/10/17 07:00 CBC W/O DIFF,HEMOGRAM [HEME] MOTH@0700 03/11/17 05:00 BASIC METABOLIC PANEL,BMP [CHEM] DAILY CBC WITH AUTO DIFF [HEME] DAILY MAGNESIUM [CHEM] DAILY 03/13/17 07:00 CBC W/O DIFF,HEMOGRAM [HEME] MOTH@0700 03/17/17 07:00 CBC W/O DIFF,HEMOGRAM [HEME] MOTH@0700 03/20/17 07:00 CBC W/O DIFF,HEMOGRAM [HEME] MOTH@0700 - Plan Plan:: Respiratory distress with new onset hypoxia. Secondary to fluid overload, and severe influenza infection given the patient had recent chemotherapy, has neutropenia, and had steroids. diuresed, and respiratory function has improved. Continue monitor closely, and continue supplemental oxygen as needed. CXR today. Diurese, low dose lasix. Atrial fibrillation with RVR. [id number] score of 0. Anticoagulation is not indicated. Likely do to his lung malignancy, recent chemotherapy and radiation, and ongoing diarrhea and influenza infection. Metorpolol increased 75 mg po Q8 hours; stopped cardizem CD. Acute neurtopenia, and thrombocytopenia. Due to recent chemotherapy as well as acute viral infection. Keep on Neupogen, last dose today, 03/09/17.. Neutrophils slowly improving. Stopped reverse and respiratory precautions. Blood and sputum cultures negative. Influenza B infection. Tamiflu was ordered, but patient could not swallow. His cough is improved today. Diurese today as Pt is still shortness of breath and has rales on exam. 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 Patient has completed one of 4 cycles of chemotherapy (which was initiated for palliation as tumor was pressing on his trachea). Difficulty swallowing after RTX to thorax - Video swallow without obstruction, mild dysfunction noted in area where patient describes pain. Greater than [address] Medel states this should improve in couple weeks. Pt continues to improve today; and is not interested in tube feedings. Poor intake, dietary consult for calorie ct. 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 Need to avoid heparin products. DNR/DNI >96 hours as we are treating multiple conditions mentioned above.
[2017-03-09] MEDS ORDERED: Magnesium Sulfate/Water 2 GM in Premix Bag 1 BAG IV ONE (09:52)
[2017-03-09] MEDS ORDERED: Potassium Chloride 10% 20 MEQ/15 ML Soln 15 ML UD Cup PO ONE (10:00)
[2017-03-09] MEDS ORDERED: Furosemide 20 MG/2 ML VIAL IVPUSH ONE (11:17)
[2017-03-09] MEDS: Metoprolol Tartrate 25 MG Tab PO SCH ×2 (13:09→21:50)
[2017-03-09] MEDS ORDERED: Potassium Chloride 10% 20 MEQ/15 ML Soln 30 ML UD Cup PO ONE (14:00)
[2017-03-09] MEDS: Albuterol 0.083% 2.5 MG/3 ML Neb Soln INH PRN ×2 (15:38→20:40)
--- NOTE | 2017-03-09 19:20 | CR ---
Chest: Two views of the chest were obtained. Comparison: Previous chest x-ray of 03/06/17. Heart size and mediastinum are within normal limits. Lungs are clear with no acute infiltrates. Left-sided infusion catheter is seen with tip lying within the brachiocephalic vein. Lungs are hyperinflated on the lateral view. Bony structures show slight degenerative change. Impression: 1. Stable chest x-ray from previous exam. Nothing acute is identified. Diagnostic code #2 I agree with preliminary report issued by [facility] (preliminary report dictated on 03/09/17, 3:16 PM Central Time)
[2017-03-09] MEDS: Temazepam 15 MG Cap PO PRN (21:51)
[2017-03-10] MEDS: HYDROmorphone 1 MG/ML Syringe IVPUSH PRN ×2 (01:14→21:57)
[2017-03-10] MEDS: Metoprolol Tartrate 25 MG Tab PO SCH ×3 (05:51→21:50)
[2017-03-10] MEDS: Sodium Chloride 0.9% Inhalation Soln 3 ML Neb INH SCH ×4 (06:29→20:50)
[2017-03-10] MEDS: HYDROmorphone 0.5 MG/0.5 ML Syringe IVPUSH PRN ×3 (08:24→17:25)
--- NOTE | 2017-03-10 14:40 | PCM.PN ---
- General Info Date of Service: 03/10/17 Functional Status: Reports: tolerating diet (improved intake), ambulating, urinating - Review of Systems General: Reports: No Symptoms HEENT: Reports: no symptoms Pulmonary: Reports: shortness of breath Cardiovascular: Reports: No Symptoms Gastrointestinal: Reports: No symptoms Genitourinary: Reports: no symptoms Musculoskeletal: Reports: no symptoms Skin: Reports: no symptoms Neurological: Reports: No Symptoms Psychiatric: Reports: no symptoms - Patient Data Vitals - most recent: Last Vital Signs Temp 36.4 C 03/10/17 12:00 Pulse 84 03/10/17 12:00 Resp 24 H 03/10/17 12:00 BP 113/82 03/10/17 12:00 Pulse Ox 95 03/10/17 13:59 Weight - most recent: 91.354 kg I&O - last 24 hours: Intake & Output 03/09/17 03/10/17 03/10/17 22:59 06:59 14:59 Intake Total 975 240 Output Total 900 100 200 Balance 75 -100 40 Lab Results last 24 hrs: Laboratory Results - last 24 hr 03/10/17 03/10/17 Range/Units 06:14 06:14 WBC 8.98 (4.23-9.07) K/mm3 RBC 4.00 L (4.63-6.08) M/mm3 Hgb 11.2 L (13.7-17.5) gm/L Hct 33.2 L (40.1-51.0) % MCV 83.0 (79.0-92.2) fl MCH 28.0 (25.7-32.2) pg MCHC 33.7 (32.2-35.5) g/dl RDW Std Deviation 38.9 (35.1-43.9) fL Plt Count 44 L (163-337) K/mm3 MPV 9.8 (9.4-12.3) fl Neut % (Auto) Cancelled Lymph % (Auto) Cancelled [place] % (Auto) Cancelled Eos % (Auto) Cancelled Baso % (Auto) Cancelled Neut # (Auto) Cancelled Lymph # (Auto) Cancelled [place] # (Auto) Cancelled Eos # (Auto) Cancelled Baso # (Auto) Cancelled Neutrophils % (Manual) 44 (40-60) % Band Neutrophils % 20 H (0-10) % Lymphocytes % (Manual) 11 L (20-40) % Atypical Lymphs % 0 % Monocytes % (Manual) 16 H (2-10) % Eosinophils % (Manual) 1 (0.8-7.0) % Basophils % (Manual) 0 L (0.2-1.2) Metamyelocytes % 2 Myelocytes % 5 Promyelocytes % 1 Nucleated RBCs 2.0 % Manual Slide Review Cancelled Toxic Granulation 1+ slight Platelet Estimate See note RBC Morph Comment Normal Sodium 137 (136-145) mEq/L Potassium 3.6 (3.5-5.1) mEq/L Chloride 100 (98-107) mEq/L Carbon Dioxide 34 H (21-32) mEq/L Anion Gap 6.6 (5-15) BUN 18 (7-18) mg/dL Creatinine 0.7 (0.7-1.3) mg/dL Est Cr Clr Drug Dosing 133.74 mL/min Estimated GFR (MDRD) > 60 (>60) mL/min BUN/Creatinine Ratio 25.7 H (14-18) Glucose 99 (74-106) mg/dL Calcium 8.4 L (8.5-10.1) mg/dL Magnesium 2.0 (1.8-2.4) mg/dl Med Orders - Current: Current Medications Acetaminophen (Tylenol) 650 mg PO Q6H PRN PRN Reason: Fever Last Admin: 03/01/17 09:13 Dose: 650 mg Albuterol (Proventil Hfa) 0 gm INH Q4H PRN PRN Reason: Shortness of Breath Last Admin: 03/08/17 17:13 Dose: 2 puff Albuterol (Proventil Neb Soln) 2.5 mg INH Q6H PRN PRN Reason: SHORTNESS OF BREATH Last Admin: 03/09/17 20:40 Dose: 2.5 mg Benzocaine/Menthol (Cepacol Sore Throat) 1 lozenge MUCMEM Q2HR PRN PRN Reason: Sore Throat Last Admin: 03/01/17 19:19 Dose: 1 lozenge Bisacodyl (Dulcolax) 10 mg PO BID PRN PRN Reason: Constipation Diphenhydr/Magaldrate/Simeth/Lidoca (First-Mouthwash Blm Susp) 30 ml PO ACBED PRN PRN Reason: Sore Throat Docusate Sodium (Colace) 100 mg PO DAILY PRN PRN Reason: Constipation Hydromorphone HCl (Dilaudid) 0.5 mg IVPUSH Q2H PRN PRN Reason: Pain Last Admin: 03/10/17 10:42 Dose: 0.5 mg Hydromorphone HCl (Dilaudid) 1 mg IVPUSH Q2H PRN PRN Reason: Pain (severe 7-10) Last Admin: 03/10/17 01:14 Dose: 1 mg Promethazine HCl 12.5 mg/ (Sodium Chloride) 50.5 mls @ 100 mls/hr IV Q6H PRN PRN Reason: Nausea/Vomiting Lidocaine HCl (Xylocaine 2% Viscous) 15 ml PO ASDIRECTED PRN PRN Reason: Sore Throat Loperamide HCl (Imodium) 2 mg PO Q4H PRN PRN Reason: Diarrhea Metoprolol Tartrate (Lopressor) 5 mg IVPUSH ONETIME PRN PRN Reason: Tachycardia Metoprolol Tartrate (Lopressor) 75 mg PO Q8HR BELL Last Admin: 03/10/17 05:51 Dose: 75 mg Ondansetron HCl (Zofran) 4 mg IVPUSH Q6H PRN PRN Reason: Nausea/Vomiting Sodium Chloride (Sodium Chloride 0.9%) 3 ml INH QIDRT BELL Last Admin: 03/10/17 09:29 Dose: 3 ml Temazepam (Restoril) 15 mg PO BEDTIME PRN PRN Reason: Insomnia Last Admin: 03/09/17 21:51 Dose: 15 mg Discontinued Medications Albuterol (Proventil Neb Soln) 2.5 mg NEB Q4H PRN PRN Reason: Shortness of Breath Barium Sulfate (E-Z-Paste) 454 gm PO ONETIME ONE Stop: 02/28/17 09:59 Last Admin: 02/28/17 14:42 Dose: Not Given Barium Sulfate (E-Z-Hd) 340 gm PO ONETIME ONE Stop: 02/28/17 09:59 Last Admin: 02/28/17 14:42 Dose: Not Given Barium Sulfate (Liquid E-Z Paque) 355 ml PO PREPRO ONE Stop: 02/28/17 09:59 Last Admin: 02/28/17 14:43 Dose: Not Given Diltiazem HCl (Diltiazem) 10 mg IVPUSH ONETIME ONE Stop: 03/03/17 10:40 Last Admin: 03/03/17 11:06 Dose: 10 mg Enoxaparin Sodium (Lovenox) 40 mg SUBCUT DAILY [facility] Furosemide (Lasix) 20 mg IVPUSH NOW ONE Stop: 03/04/17 15:09 Last Admin: 03/04/17 15:27 Dose: 20 mg Furosemide (Lasix) 20 mg IVPUSH NOW ONE Stop: 03/06/17 08:47 Last Admin: 03/06/17 09:02 Dose: 20 mg Furosemide (Lasix) 20 mg IVPUSH NOW ONE Stop: 03/06/17 10:17 Last Admin: 03/06/17 11:25 Dose: Not Given Furosemide (Lasix) 20 mg IVPUSH NOW ONE Stop: 03/06/17 10:17 Last Admin: 03/06/17 11:41 Dose: Not Given Furosemide (Lasix) 20 mg IVPUSH ONETIME ONE Stop: 03/07/17 02:23 Last Admin: 03/07/17 02:29 Dose: 20 mg Furosemide (Lasix) Confirm Administered Dose 20 mg .ROUTE .STK-MED ONE Stop: 03/07/17 02:26 Last Admin: 03/07/17 02:32 Dose: Not Given Furosemide (Lasix) 20 mg IVPUSH NOW ONE Stop: 03/07/17 10:16 Last Admin: 03/07/17 10:40 Dose: 20 mg Furosemide (Lasix) 10 mg IVPUSH NOW ONE Stop: 03/09/17 11:18 Last Admin: 03/09/17 13:08 Dose: 10 mg Sodium Chloride (Normal Saline) 1,000 mls @ 150 mls/hr IV ONETIME ONE Stop: 02/27/17 20:19 Last Admin: 02/27/17 14:21 Dose: 150 mls/hr Lactated Ringer's (Ringers, Lactated) 1,000 mls @ 999 mls/hr IV Q1H BE[facility] Stop: 02/27/17 20:44 Last Admin: 02/27/17 20:53 Dose: 999 mls/hr Lactated Ringer's (Ringers, Lactated) 1,000 mls @ 125 mls/hr IV ASDIRECTED [facility] Last Admin: 02/27/17 21:58 Dose: 125 mls/hr Levofloxacin/Dextrose 750 mg/ (Premix) 150 mls @ 100 mls/hr IV Q24H [facility] Piperacillin Sod/Tazobactam (Sod 4.5 gm/ Sodium Chloride) 100 mls @ 200 mls/hr IV ONETIME ONE Stop: 02/28/17 10:59 Last Admin: 02/28/17 11:26 Dose: 200 mls/hr Piperacillin Sod/Tazobactam (Sod 4.5 gm/ Sodium Chloride) 100 mls @ 25 mls/hr IV Q8H [facility] Last Admin: 03/02/17 09:52 Dose: 25 mls/hr Levofloxacin/Dextrose 750 mg/ (Premix) 150 mls @ 100 mls/hr IV Q24H [facility] Last Admin: 03/02/17 16:57 Dose: Not Given Sodium Chloride (Normal Saline) 1,000 mls @ 125 mls/hr IV ASDIRECTED [facility] Last Admin: 03/01/17 05:16 Dose: 125 mls/hr Dextrose/Sodium Chloride (Dextrose 5%-Normal Saline) 1,000 mls @ 125 mls/hr IV ASDIRECTED [facility] Last Admin: 03/02/17 02:46 Dose: 125 mls/hr Sodium Chloride (Normal Saline) 1,000 mls @ 80 mls/hr IV ASDIRECTED [facility] Last Admin: 03/03/17 11:16 Dose: 80 mls/hr Meropenem 1 gm/ Sodium (Chloride) 100 mls @ 200 mls/hr IV Q8H [facility] Vancomycin HCl 1 gm/Vancomycin HCl 250 mg/ Sodium Chloride 250 mls @ 250 mls/ hr IV Q12H [facility] Last Admin: 03/03/17 10:32 Dose: 250 mls/hr Meropenem 1 gm/ Sodium (Chloride) 100 mls @ 200 mls/hr IV Q8H [facility] Stop: 03/05/17 14:00 Last Admin: 03/05/17 09:06 Dose: 200 mls/hr Magnesium Sulfate 2 gm/ Premix 50 mls @ 25 mls/hr IV ONETIME ONE Stop: 03/03/17 12:59 Last Admin: 03/03/17 11:05 Dose: 25 mls/hr Diltiazem HCl 100 mg/ Sodium (Chloride) 100 mls @ 5 mls/hr IV TITRATE BELL; 5 MG /HR PRN Reason: Protocol Last Titration: 03/07/17 09:40 Dose: 0 mg/hr, 0 mls/hr Potassium Chloride 10 meq/ (Premix) 100 mls @ 100 mls/hr IV Q1H [facility] Stop: 03/03/17 14:44 Last Admin: 03/03/17 14:46 Dose: 100 mls/hr Vancomycin HCl 1 gm/Vancomycin HCl 250 mg/ Sodium Chloride 250 mls @ 250 mls/ hr IV Q12H [facility] Last Admin: 03/04/17 11:21 Dose: 250 mls/hr Meropenem 500 mg/ Sodium (Chloride) 100 mls @ 200 mls/hr IV Q6H [facility] Last Admin: 03/08/17 08:35 Dose: 200 mls/hr Vancomycin HCl 1 gm/Vancomycin HCl 500 mg/ Sodium Chloride 250 mls @ 250 mls/ hr IV Q12H [facility] Last Admin: 03/05/17 00:50 Dose: Not Given Vancomycin HCl 1 gm/Vancomycin HCl 500 mg/ Sodium Chloride 500 mls @ 500 mls/ hr IV Q12H [facility] Last Admin: 03/05/17 00:50 Dose: Not Given Vancomycin HCl 1 gm/Vancomycin HCl 500 mg/ Sodium Chloride 500 mls @ 250 mls/ hr IV Q12H [facility] Last Admin: 03/06/17 17:20 Dose: Not Given Sodium Chloride (Normal Saline) Confirm Administered Dose 500 mls @ as directed .ROUTE .[facility]-MED ONE Stop: 03/04/17 23:55 Last Admin: 03/05/17 00:09 Dose: Not Given Vancomycin HCl 1 gm/Vancomycin HCl 250 mg/ Sodium Chloride 250 mls @ 166 mls/ hr IV Q8H [facility] Vancomycin HCl 1 gm/Vancomycin HCl 250 mg/ Sodium Chloride 250 mls @ 166 mls/ hr IV Q8H [facility] Last Admin: 03/08/17 04:03 Dose: 166 mls/hr Potassium Chloride 10 meq/ (Premix) 100 mls @ 100 mls/hr IV Q1H [facility] Stop: 03/07/17 17:29 Last Admin: 03/07/17 16:24 Dose: 100 mls/hr Diltiazem HCl 125 mg/ Sodium (Chloride) 125 mls @ 5 mls/hr IV TITRATE BELL; 5 MG /HR PRN Reason: Protocol Diltiazem HCl 125 mg/ Sodium (Chloride) 125 mls @ 5 mls/hr IV TITRATE BELL; 5 MG /HR PRN Reason: Protocol Last Titration: 03/07/17 12:52 Dose: 0 mg/hr, 0 mls/hr Magnesium Sulfate 2 gm/ Premix 50 mls @ 25 mls/hr IV ONETIME ONE Stop: 03/09/17 11:51 Last Admin: 03/09/17 13:08 Dose: 25 mls/hr Levalbuterol HCl (Xopenex) 1.25 mg NEB QIDRT BELL Last Admin: 03/04/17 12:07 Dose: Not Given Levalbuterol HCl (Xopenex) Confirm Administered Dose 1.25 mg .ROUTE .STK-MED ONE Stop: 03/04/17 09:25 Last Admin: 03/04/17 09:42 Dose: 1.25 mg Lidocaine HCl (Xylocaine 2% Viscous) 15 ml PO ASDIRECTED PRN PRN Reason: Sore Throat Loperamide HCl (Imodium) 2 mg PO Q4H PRN PRN Reason: Diarrhea Magnesium Hydroxide (Milk Of Magnesia) 30 ml PO ONETIME ONE Stop: 03/01/17 22:04 Last Admin: 03/01/17 23:46 Dose: Not Given Meropenem (Merrem) Confirm Administered Dose 1 gm .ROUTE .STK-MED ONE Stop: 03/03/17 17:34 Last Admin: 03/03/17 17:40 Dose: Not Given Meropenem (Merrem) Confirm Administered Dose 500 mg .ROUTE .STK-MED ONE Stop: 03/05/17 16:21 Last Admin: 03/05/17 16:25 Dose: Not Given Methylprednisolone Sodium Succinate (Solu-Medrol) 40 mg IVPUSH Q12H [facility] Last Admin: 03/02/17 06:17 Dose: 40 mg Methylprednisolone Sodium Succinate (Solu-Medrol) 10 mg IVPUSH DAILY [facility] Last Admin: 03/04/17 09:22 Dose: 10 mg Metoclopramide HCl (Reglan) 10 mg IVPUSH Q6H [facility] Last Admin: 03/04/17 09:16 Dose: 10 mg Metoprolol Tartrate (Lopressor) 5 mg IVPUSH ONETIME ONE Stop: 03/03/17 08:31 Last Admin: 03/03/17 08:38 Dose: 5 mg Metoprolol Tartrate (Lopressor) 5 mg IVPUSH Q5M PRN PRN Reason: for heart rate sustaining >120 Stop: 03/03/17 09:06 Last Admin: 03/03/17 09:03 Dose: 5 mg Metoprolol Tartrate (Lopressor) 5 mg IVPUSH ONETIME ONE Stop: 03/03/17 17:45 Last Admin: 03/03/17 18:08 Dose: 5 mg Metoprolol Tartrate (Lopressor) 10 mg IVPUSH ONETIME ONE Stop: 03/03/17 17:46 Last Admin: 03/03/17 20:20 Dose: Not Given Metoprolol Tartrate (Lopressor) 5 mg IVPUSH ONETIME PRN PRN Reason: Tachycardia Last Admin: 03/03/17 22:05 Dose: 5 mg Metoprolol Tartrate (Lopressor) Confirm Administered Dose 10 mg .ROUTE .STK-MED ONE Stop: 03/04/17 06:13 Last Admin: 03/04/17 16:30 Dose: Not Given Metoprolol Tartrate (Lopressor) 5 mg IVPUSH ONETIME ONE Stop: 03/04/17 06:14 Last Admin: 03/04/17 06:15 Dose: 5 mg Metoprolol Tartrate (Lopressor) 5 mg IVPUSH ONETIME ONE Stop: 03/04/17 16:31 Last Admin: 03/04/17 16:38 Dose: 5 mg Metoprolol Tartrate (Lopressor) 10 mg IVPUSH ONETIME ONE Stop: 03/06/17 11:28 Last Admin: 03/06/17 11:41 Dose: 10 mg Metoprolol Tartrate (Lopressor) 50 mg PO BID [facility] Last Admin: 03/08/17 08:31 Dose: 50 mg Metoprolol Tartrate (Lopressor) 50 mg PO Q8HR [facility] Last Admin: 03/09/17 05:15 Dose: 50 mg Ondansetron HCl (Zofran) 4 mg IVPUSH Q8H PRN PRN Reason: Nausea/Vomiting Oseltamivir Phosphate (Tamiflu) 75 mg PO BID [facility] Stop: 03/04/17 21:01 Last Admin: 03/04/17 09:21 Dose: Not Given Pantoprazole Sodium (Protonix Iv) 40 mg IVPUSH DAILY [facility] Last Admin: 03/09/17 09:14 Dose: 40 mg Potassium Chloride (Potassium Chloride) 40 meq PO TID [facility] Stop: 03/03/17 15:01 Last Admin: 03/04/17 02:20 Dose: Not Given Potassium Chloride (Potassium Chloride Solution) 40 meq PO ONETIME ONE Stop: 03/09/17 10:01 Last Admin: 03/09/17 13:12 Dose: 40 meq Potassium Chloride (Potassium Chloride) 40 meq PO ONETIME ONE Stop: 03/09/17 14:01 Last Admin: 03/09/17 13:08 Dose: 40 meq Saccharomyces Boulardii (Florastor) 250 mg PO DAILY [facility] Last Admin: 03/02/17 09:52 Dose: 250 mg Sertraline HCl (Zoloft) 25 mg PO ONETIME ONE Stop: 03/04/17 15:46 Last Admin: 03/04/17 16:36 Dose: 25 mg Sodium Chloride (Sodium Chloride 0.9%) 3 ml INH QID [facility] Last Admin: 03/04/17 19:40 Dose: Not Given Tbo-Filgrastim (Granix) 480 mcg SUBCUT DAILY [facility] Stop: 03/10/17 09:01 Last Admin: 03/10/17 08:01 Dose: 480 mcg Tbo-Filgrastim (Granix) 480 mcg SQ ONETIME ONE Stop: 03/03/17 17:01 Last Admin: 03/03/17 18:11 Dose: 480 mcg Temazepam (Restoril) 15 mg PO BEDTIME PRN PRN Reason: Insomnia Vancomycin HCl (Pharmacy To Dose - Vancomycin) 1 dose .XX ASDIRECTED [facility] - Exam Quality Assessment: DVT prophylaxis General: alert, oriented, cooperative, no acute distress HEENT: Pupils equal, Pupils reactive Lungs: Normal respiratory effort, Decreased breath sounds Cardiovascular: Regular Rate, Regular Rhythm Abdomen: bowel sounds present, soft, no tenderness, no distension (Male) Exam: Deferred Back Exam: normal inspection Extremities: normal pulses Skin: warm Neurological: no new focal deficit, normal gait, normal speech Psy/Mental Status: alert, normal affect, normal mood - Problem List & Annotations (1) Dehydration SNOMED Code(s): 33874061 Code(s): E86.0 - DEHYDRATION Status: Acute Current Visit: Yes (2) Hypoxia SNOMED Code(s): 376878298, 995303469 Code(s): R09.02 - HYPOXEMIA Status: Acute Current Visit: Yes (3) Influenza SNOMED Code(s): 3691401 Code(s): J11.1 - FLU DUE TO UNIDENTIFIED INFLUENZA VIRUS W OTH RESP MANIFEST Status: Acute Current Visit: Yes (4) Neutropenia SNOMED Code(s): 339069042 Code(s): D70.9 - NEUTROPENIA, UNSPECIFIED Status: Acute Current Visit: Yes Qualifiers: Neutropenia type: secondary to cancer chemotherapy Qualified Code(s): D70.1 - Agranulocytosis secondary to cancer chemotherapy - Problem List Review Problem List Initiated/Reviewed/Updated: Yes - My Orders Last 24 Hours: My Active Orders 03/09/17 14:00 Metoprolol Tartrate [Lopressor] 75 mg PO Q8HR 03/09/17 16:00 Albuterol [Proventil Neb Soln] 2.5 mg INH Q6H PRN 03/11/17 05:00 BASIC METABOLIC PANEL,BMP [CHEM] DAILY CBC WITH AUTO DIFF [HEME] DAILY MAGNESIUM [CHEM] DAILY 03/13/17 07:00 CBC W/O DIFF,HEMOGRAM [HEME] MOTH@0700 03/17/17 07:00 CBC W/O DIFF,HEMOGRAM [HEME] MOTH@0700 03/20/17 07:00 CBC W/O DIFF,HEMOGRAM [HEME] MOTH@0700 - Plan Plan:: Respiratory distress with new onset hypoxia. Secondary to fluid overload, and severe influenza infection given the patient had recent chemotherapy, has neutropenia, and had steroids. diuresed, and respiratory function has improved. Continue monitor closely, and continue supplemental oxygen as needed. CXR today. Diurese, low dose lasix. Atrial fibrillation with RVR. [id number] score of 0. Anticoagulation is not indicated. Likely do to his lung malignancy, recent chemotherapy and radiation, and ongoing diarrhea and influenza infection. Metorpolol increased 75 mg po Q8 hours; stopped cardizem CD. Resoved, acute neurtopenia, and thrombocytopenia. Due to recent chemotherapy as well as acute viral infection. Keep on Neupogen, last dose today, 03/09/17.. Neutrophils slowly improving. Stopped reverse and respiratory precautions. Blood and sputum cultures negative. Influenza B infection. Tamiflu was ordered, but patient could not swallow. His cough is improved today. Diurese today as Pt is still shortness of breath and has rales on exam. 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 Patient has completed one of 4 cycles of chemotherapy (which was initiated for palliation as tumor was pressing on his trachea). Difficulty swallowing after RTX to thorax - Video swallow without obstruction, mild dysfunction noted in area where patient describes pain. Greater than [address] Medel states this should improve in couple weeks. Pt continues to improve today; and is not interested in tube feedings. Poor intake, dietary consult for calorie ct. 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 Need to avoid heparin products. DNR/DNI >96 hours as we are treating multiple conditions mentioned above. DC 03/11/17 with PCP and oncology follow up.
[2017-03-10] MEDS: Albuterol 0.083% 2.5 MG/3 ML Neb Soln INH PRN (20:49)
[2017-03-10] MEDS: Temazepam 15 MG Cap PO PRN (21:54)
[2017-03-10] MEDS: Benzocaine/Cetylpyridinium/Menthol Lozenge MUCMEM PRN (21:57)
[2017-03-11] MEDS: HYDROmorphone 1 MG/ML Syringe IVPUSH PRN (00:28)
[2017-03-11] MEDS: Metoprolol Tartrate 25 MG Tab PO SCH (06:44)
[2017-03-11] MEDS: Sodium Chloride 0.9% Inhalation Soln 3 ML Neb INH SCH ×2 (06:52→10:16)
[2017-03-11 08:00] VITALS: BP 90/68
[2017-03-11] MEDS ORDERED: Furosemide 20 MG/2 ML VIAL IVPUSH ONE (09:09)
--- NOTE | 2017-03-11 09:09 | PCM.DCSUM1 ---
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 The patient complained of sputum as well, denied corbin blood. Admits to chills however, denies a fever. Has been unable to eat since the initiation of CTX/RTX; state that it feels like the food is getting stuck in his throat. He has lost 10 pounds since he has been unable to great, occasionally after medication to numb his throat he can tolerate beverages. Patient was admitted to medical surgical unit, teated with IVF, Influenza B returned positive. Tamiflu was started along with aggressive pulmonary toilet. He was unable to eat or drink due to sensation of pain and sticking. EVALUATION ANALYST was consulted. Video swallow study was done and essentially unremarkable. Heart rates became tachycardic and into atrial fibrillation with RVR. He was transferred to ICU, started on cardizem drip and PO metoprolol. He became leukopenic with lowest WBC of 0.05, thrombocytopenic with lowest platelets of 12. He slowly improved, slowly responded to medications for heat rate control, blood counts improved, appetite and swallowing slowly improved. He was working with PT/OT and was able to ambulate in hallways and maintain heart rates without tachycardia with activity. He underwent multiple CXR's during his stay, all essentially unchanged and without acute findings. Echocardiogram was obtained with EF of 60-65% with mild left ventricular hypertrophy and probably hypertensive cardiomyopathy. Blood cultures, sputum cultures, stool cultures and strep pneumo antigen all were negative. Respiratory viral panel + for influenza B but others negative. Patient is discharged home with today on supplemental oxygen, prednisone taper, metoprolol for heart rate control, hydrocodone for pain. He is to follow up with Dr. Medel, his Oncologist as soon as he is able for recheck upon discharge. - Discharge Data Discharge Date: 03/11/17 (admit date 02/27/17) Discharge Disposition: Home, Self-Care 01 Condition: Good - Patient Summary/Data Operative Procedure(s) Performed: None Complications: None Consults: Consultations 02/28/17 09:00 Consult to Physical Therapy [PT Evaluation and Treatment] [CONS] Routine Consult to Mechanical Pencils Assembler [CONS] Routine 02/28/17 10:00 Consult to Occupational Therapy [OT Evaluation and Treatment] [CONS] Routine Labs Pending at D/C: None Recommended Follow-up Testing/Procedures: Follow up with Oncologist, Dr. Medel-- schedule appointment upon discharge Planned Operative Procedure(s) after DC: None Hospital Course: As above - Patient Instructions Diet: Usual Diet as Tolerated, Drink 8-10+ Glasses/Day Activity: As Tolerated Showering/Bathing: May Shower Notify Provider of: Fever, Increased Pain, Nausea and/or Vomiting - Discharge Plan Prescriptions/Med Rec: Hydrocodone/Acetaminophen [Hydrocodon-Acetaminophen 5-325] 1 - 2 each PO Q6HR # 40 tablet Metoprolol Tartrate [Lopressor] 75 mg PO Q8HR #200 tablet Albuterol [IJD: Albuterol] 2.5 mg INH Q6H PRN #1 box PRN Reason: Shortness Of Breath Prednisone [IJD: Prednisone] 10 mg PO DAILY #15 tab Home Medications: Home Meds Albuterol [IJD: Ventolin HFA] 1 puff INH .TWICE DAILY #18 gm 01/16/17 [Rx] Albuterol [IJD: Albuterol] 2.5 mg INH Q6H PRN #1 box 03/11/17 [Rx] Hydrocodone/Acetaminophen [Hydrocodon-Acetaminophen 5-325] 1 - 2 each PO Q6HR # 40 tablet 03/11/17 [Rx] Metoprolol Tartrate [Lopressor] 75 mg PO Q8HR #200 tablet 03/11/17 [Rx] Prednisone [IJD: Prednisone] 10 mg PO DAILY #15 tab 03/11/17 [Rx] Patient Handouts: Influenza, Adult, [id number], Lung Cancer, Atrial Fibrillation, [id number], Food Safety for the Immunocompromised Person Forms: ED Department Discharge Referrals: PCP,None [Primary Care Provider] - Jim Medel MD [Ordering Only Provider] - (Call [phone] to reschedule your oncology appt. They said they will be able to work you in as soon as possible after you are discharged from the hospital.) - Discharge Summary/Plan Comment DC Time >30 min.: Yes (40 min) - Review of Systems General: Reports: No Symptoms, Weakness (improved), Fatigue (improved) HEENT: Reports: no symptoms Pulmonary: Reports: shortness of breath (improved) Cardiovascular: Reports: Dyspnea on Exertion (improved) Gastrointestinal: Reports: Decreased appetite (improved), Difficulty swallowing (improved) Genitourinary: Reports: no symptoms Musculoskeletal: Reports: no symptoms Skin: Reports: no symptoms Neurological: Reports: No Symptoms Psychiatric: Reports: no symptoms - Patient Data Vitals - Most Recent: Last Vital Signs Temp 97.9 F 03/11/17 07:50 Pulse 70 03/11/17 07:50 Resp 18 03/11/17 07:50 BP 90/68 03/11/17 07:50 Pulse Ox 99 03/11/17 07:50 Weight - Most Recent: 89.993 kg I&O - Last 24 hours: Intake & Output 03/10/17 03/11/17 03/11/17 22:59 06:59 14:59 Intake Total 520 1075 Output Total 200 Balance 520 875 Lab Results - Last 24 hrs: Laboratory Results - last 24 hr 03/11/17 Range/Units 06:30 WBC 14.61 H (4.23-9.07) K/mm3 RBC 3.92 L (4.63-6.08) M/mm3 Hgb 10.8 L (13.7-17.5) gm/L Hct 33.1 L (40.1-51.0) % MCV 84.4 (79.0-92.2) fl MCH 27.6 (25.7-32.2) pg MCHC 32.6 (32.2-35.5) g/dl RDW Std Deviation 39.5 (35.1-43.9) fL Plt Count 48 L (163-337) K/mm3 MPV 10.0 (9.4-12.3) fl Neut % (Auto) 63.3 (34.0-67.9) % Lymph % (Auto) 5.9 L (21.8-53.1) % [place] % (Auto) 19.4 H (5.3-12.2) % Eos % (Auto) 0 L (0.8-7.0) Baso % (Auto) 0.8 (0.1-1.2) % Neut # (Auto) 9.25 H (1.78-5.38) K/mm3 Lymph # (Auto) 0.86 L (1.32-3.57) K/mm3 [place] # (Auto) 2.84 H (0.30-0.82) K/mm3 Eos # (Auto) 0.00 L (0.04-0.54) K/mm3 Baso # (Auto) 0.11 H (0.01-0.08) K/mm3 Manual Slide Review Abnormal smear Med Orders - Current: Current Medications Acetaminophen (Tylenol) 650 mg PO Q6H PRN PRN Reason: Fever Last Admin: 03/01/17 09:13 Dose: 650 mg Albuterol (Proventil Hfa) 0 gm INH Q4H PRN PRN Reason: Shortness of Breath Last Admin: 03/08/17 17:13 Dose: 2 puff Albuterol (Proventil Neb Soln) 2.5 mg INH Q6H PRN PRN Reason: SHORTNESS OF BREATH Last Admin: 03/10/17 20:49 Dose: 2.5 mg Benzocaine/Menthol (Cepacol Sore Throat) 1 lozenge MUCMEM Q2HR PRN PRN Reason: Sore Throat Last Admin: 03/10/17 21:57 Dose: 1 lozenge Bisacodyl (Dulcolax) 10 mg PO BID PRN PRN Reason: Constipation Diphenhydr/Magaldrate/Simeth/Lidoca (First-Mouthwash Blm Susp) 30 ml PO ACBED PRN PRN Reason: Sore Throat Docusate Sodium (Colace) 100 mg PO DAILY PRN PRN Reason: Constipation Hydromorphone HCl (Dilaudid) 0.5 mg IVPUSH Q2H PRN PRN Reason: Pain Last Admin: 03/10/17 17:25 Dose: 0.5 mg Hydromorphone HCl (Dilaudid) 1 mg IVPUSH Q2H PRN PRN Reason: Pain (severe 7-10) Last Admin: 03/11/17 00:28 Dose: 1 mg Promethazine HCl 12.5 mg/ (Sodium Chloride) 50.5 mls @ 100 mls/hr IV Q6H PRN PRN Reason: Nausea/Vomiting Lidocaine HCl (Xylocaine 2% Viscous) 15 ml PO ASDIRECTED PRN PRN Reason: Sore Throat Loperamide HCl (Imodium) 2 mg PO Q4H PRN PRN Reason: Diarrhea Metoprolol Tartrate (Lopressor) 5 mg IVPUSH ONETIME PRN PRN Reason: Tachycardia Metoprolol Tartrate (Lopressor) 75 mg PO Q8HR BELL Last Admin: 03/11/17 06:44 Dose: 75 mg Ondansetron HCl (Zofran) 4 mg IVPUSH Q6H PRN PRN Reason: Nausea/Vomiting Sodium Chloride (Sodium Chloride 0.9%) 3 ml INH QIDRT BELL Last Admin: 03/11/17 06:52 Dose: 3 ml Temazepam (Restoril) 15 mg PO BEDTIME PRN PRN Reason: Insomnia Last Admin: 03/10/17 21:54 Dose: 15 mg Discontinued Medications Albuterol (Proventil Neb Soln) 2.5 mg NEB Q4H PRN PRN Reason: Shortness of Breath Barium Sulfate (E-Z-Paste) 454 gm PO ONETIME ONE Stop: 02/28/17 09:59 Last Admin: 02/28/17 14:42 Dose: Not Given Barium Sulfate (E-Z-Hd) 340 gm PO ONETIME ONE Stop: 02/28/17 09:59 Last Admin: 02/28/17 14:42 Dose: Not Given Barium Sulfate (Liquid E-Z Paque) 355 ml PO PREPRO ONE Stop: 02/28/17 09:59 Last Admin: 02/28/17 14:43 Dose: Not Given Diltiazem HCl (Diltiazem) 10 mg IVPUSH ONETIME ONE Stop: 03/03/17 10:40 Last Admin: 03/03/17 11:06 Dose: 10 mg Enoxaparin Sodium (Lovenox) 40 mg SUBCUT DAILY [facility] Furosemide (Lasix) 20 mg IVPUSH NOW ONE Stop: 03/04/17 15:09 Last Admin: 03/04/17 15:27 Dose: 20 mg Furosemide (Lasix) 20 mg IVPUSH NOW ONE Stop: 03/06/17 08:47 Last Admin: 03/06/17 09:02 Dose: 20 mg Furosemide (Lasix) 20 mg IVPUSH NOW ONE Stop: 03/06/17 10:17 Last Admin: 03/06/17 11:25 Dose: Not Given Furosemide (Lasix) 20 mg IVPUSH NOW ONE Stop: 03/06/17 10:17 Last Admin: 03/06/17 11:41 Dose: Not Given Furosemide (Lasix) 20 mg IVPUSH ONETIME ONE Stop: 03/07/17 02:23 Last Admin: 03/07/17 02:29 Dose: 20 mg Furosemide (Lasix) Confirm Administered Dose 20 mg .ROUTE .STK-MED ONE Stop: 03/07/17 02:26 Last Admin: 03/07/17 02:32 Dose: Not Given Furosemide (Lasix) 20 mg IVPUSH NOW ONE Stop: 03/07/17 10:16 Last Admin: 03/07/17 10:40 Dose: 20 mg Furosemide (Lasix) 10 mg IVPUSH NOW ONE Stop: 03/09/17 11:18 Last Admin: 03/09/17 13:08 Dose: 10 mg Sodium Chloride (Normal Saline) 1,000 mls @ 150 mls/hr IV ONETIME ONE Stop: 02/27/17 20:19 Last Admin: 02/27/17 14:21 Dose: 150 mls/hr Lactated Ringer's (Ringers, Lactated) 1,000 mls @ 999 mls/hr IV Q1H [facility] Stop: 02/27/17 20:44 Last Admin: 02/27/17 20:53 Dose: 999 mls/hr Lactated Ringer's (Ringers, Lactated) 1,000 mls @ 125 mls/hr IV ASDIRECTED [facility] Last Admin: 02/27/17 21:58 Dose: 125 mls/hr Levofloxacin/Dextrose 750 mg/ (Premix) 150 mls @ 100 mls/hr IV Q24H [facility] Piperacillin Sod/Tazobactam (Sod 4.5 gm/ Sodium Chloride) 100 mls @ 200 mls/hr IV ONETIME ONE Stop: 02/28/17 10:59 Last Admin: 02/28/17 11:26 Dose: 200 mls/hr Piperacillin Sod/Tazobactam (Sod 4.5 gm/ Sodium Chloride) 100 mls @ 25 mls/hr IV Q8H [facility] Last Admin: 03/02/17 09:52 Dose: 25 mls/hr Levofloxacin/Dextrose 750 mg/ (Premix) 150 mls @ 100 mls/hr IV Q24H [facility] Last Admin: 03/02/17 16:57 Dose: Not Given Sodium Chloride (Normal Saline) 1,000 mls @ 125 mls/hr IV ASDIRECTED BELL Last Admin: 03/01/17 05:16 Dose: 125 mls/hr Dextrose/Sodium Chloride (Dextrose 5%-Normal Saline) 1,000 mls @ 125 mls/hr IV ASDIRECTED BELL Last Admin: 03/02/17 02:46 Dose: 125 mls/hr Sodium Chloride (Normal Saline) 1,000 mls @ 80 mls/hr IV ASDIRECTED BELL Last Admin: 03/03/17 11:16 Dose: 80 mls/hr Meropenem 1 gm/ Sodium (Chloride) 100 mls @ 200 mls/hr IV Q8H BELL Vancomycin HCl 1 gm/Vancomycin HCl 250 mg/ Sodium Chloride 250 mls @ 250 mls/ hr IV Q12H [facility] Last Admin: 03/03/17 10:32 Dose: 250 mls/hr Meropenem 1 gm/ Sodium (Chloride) 100 mls @ 200 mls/hr IV Q8H [facility] Stop: 03/05/17 14:00 Last Admin: 03/05/17 09:06 Dose: 200 mls/hr Magnesium Sulfate 2 gm/ Premix 50 mls @ 25 mls/hr IV ONETIME ONE Stop: 03/03/17 12:59 Last Admin: 03/03/17 11:05 Dose: 25 mls/hr Diltiazem HCl 100 mg/ Sodium (Chloride) 100 mls @ 5 mls/hr IV TITRATE BELL; 5 MG /HR PRN Reason: Protocol Last Titration: 03/07/17 09:40 Dose: 0 mg/hr, 0 mls/hr Potassium Chloride 10 meq/ (Premix) 100 mls @ 100 mls/hr IV Q1H [facility] Stop: 03/03/17 14:44 Last Admin: 03/03/17 14:46 Dose: 100 mls/hr Vancomycin HCl 1 gm/Vancomycin HCl 250 mg/ Sodium Chloride 250 mls @ 250 mls/ hr IV Q12H [facility] Last Admin: 03/04/17 11:21 Dose: 250 mls/hr Meropenem 500 mg/ Sodium (Chloride) 100 mls @ 200 mls/hr IV Q6H [facility] Last Admin: 03/08/17 08:35 Dose: 200 mls/hr Vancomycin HCl 1 gm/Vancomycin HCl 500 mg/ Sodium Chloride 250 mls @ 250 mls/ hr IV Q12H BELL Last Admin: 03/05/17 00:50 Dose: Not Given Vancomycin HCl 1 gm/Vancomycin HCl 500 mg/ Sodium Chloride 500 mls @ 500 mls/ hr IV Q12H BELL Last Admin: 03/05/17 00:50 Dose: Not Given Vancomycin HCl 1 gm/Vancomycin HCl 500 mg/ Sodium Chloride 500 mls @ 250 mls/ hr IV Q12H BELL Last Admin: 03/06/17 17:20 Dose: Not Given Sodium Chloride (Normal Saline) Confirm Administered Dose 500 mls @ as directed .ROUTE .STK-MED ONE Stop: 03/04/17 23:55 Last Admin: 03/05/17 00:09 Dose: Not Given Vancomycin HCl 1 gm/Vancomycin HCl 250 mg/ Sodium Chloride 250 mls @ 166 mls/ hr IV Q8H BELL Vancomycin HCl 1 gm/Vancomycin HCl 250 mg/ Sodium Chloride 250 mls @ 166 mls/ hr IV Q8H BELL Last Admin: 03/08/17 04:03 Dose: 166 mls/hr Potassium Chloride 10 meq/ (Premix) 100 mls @ 100 mls/hr IV Q1H BELL Stop: 03/07/17 17:29 Last Admin: 03/07/17 16:24 Dose: 100 mls/hr Diltiazem HCl 125 mg/ Sodium (Chloride) 125 mls @ 5 mls/hr IV TITRATE BELL; 5 MG /HR PRN Reason: Protocol Diltiazem HCl 125 mg/ Sodium (Chloride) 125 mls @ 5 mls/hr IV TITRATE BELL; 5 MG /HR PRN Reason: Protocol Last Titration: 03/07/17 12:52 Dose: 0 mg/hr, 0 mls/hr Magnesium Sulfate 2 gm/ Premix 50 mls @ 25 mls/hr IV ONETIME ONE Stop: 03/09/17 11:51 Last Admin: 03/09/17 13:08 Dose: 25 mls/hr Levalbuterol HCl (Xopenex) 1.25 mg NEB QIDRT BELL Last Admin: 03/04/17 12:07 Dose: Not Given Levalbuterol HCl (Xopenex) Confirm Administered Dose 1.25 mg .ROUTE .STK-MED ONE Stop: 03/04/17 09:25 Last Admin: 03/04/17 09:42 Dose: 1.25 mg Lidocaine HCl (Xylocaine 2% Viscous) 15 ml PO ASDIRECTED PRN PRN Reason: Sore Throat Loperamide HCl (Imodium) 2 mg PO Q4H PRN PRN Reason: Diarrhea Magnesium Hydroxide (Milk Of Magnesia) 30 ml PO ONETIME ONE Stop: 03/01/17 22:04 Last Admin: 03/01/17 23:46 Dose: Not Given Meropenem (Merrem) Confirm Administered Dose 1 gm .ROUTE .STK-MED ONE Stop: 03/03/17 17:34 Last Admin: 03/03/17 17:40 Dose: Not Given Meropenem (Merrem) Confirm Administered Dose 500 mg .ROUTE .STK-MED ONE Stop: 03/05/17 16:21 Last Admin: 03/05/17 16:25 Dose: Not Given Methylprednisolone Sodium Succinate (Solu-Medrol) 40 mg IVPUSH Q12H [facility] Last Admin: 03/02/17 06:17 Dose: 40 mg Methylprednisolone Sodium Succinate (Solu-Medrol) 10 mg IVPUSH DAILY [facility] Last Admin: 03/04/17 09:22 Dose: 10 mg Metoclopramide HCl (Reglan) 10 mg IVPUSH Q6H [facility] Last Admin: 03/04/17 09:16 Dose: 10 mg Metoprolol Tartrate (Lopressor) 5 mg IVPUSH ONETIME ONE Stop: 03/03/17 08:31 Last Admin: 03/03/17 08:38 Dose: 5 mg Metoprolol Tartrate (Lopressor) 5 mg IVPUSH Q5M PRN PRN Reason: for heart rate sustaining >120 Stop: 03/03/17 09:06 Last Admin: 03/03/17 09:03 Dose: 5 mg Metoprolol Tartrate (Lopressor) 5 mg IVPUSH ONETIME ONE Stop: 03/03/17 17:45 Last Admin: 03/03/17 18:08 Dose: 5 mg Metoprolol Tartrate (Lopressor) 10 mg IVPUSH ONETIME ONE Stop: 03/03/17 17:46 Last Admin: 03/03/17 20:20 Dose: Not Given Metoprolol Tartrate (Lopressor) 5 mg IVPUSH ONETIME PRN PRN Reason: Tachycardia Last Admin: 03/03/17 22:05 Dose: 5 mg Metoprolol Tartrate (Lopressor) Confirm Administered Dose 10 mg .ROUTE .STK-MED ONE Stop: 03/04/17 06:13 Last Admin: 03/04/17 16:30 Dose: Not Given Metoprolol Tartrate (Lopressor) 5 mg IVPUSH ONETIME ONE Stop: 03/04/17 06:14 Last Admin: 03/04/17 06:15 Dose: 5 mg Metoprolol Tartrate (Lopressor) 5 mg IVPUSH ONETIME ONE Stop: 03/04/17 16:31 Last Admin: 03/04/17 16:38 Dose: 5 mg Metoprolol Tartrate (Lopressor) 10 mg IVPUSH ONETIME ONE Stop: 03/06/17 11:28 Last Admin: 03/06/17 11:41 Dose: 10 mg Metoprolol Tartrate (Lopressor) 50 mg PO BID [facility] Last Admin: 03/08/17 08:31 Dose: 50 mg Metoprolol Tartrate (Lopressor) 50 mg PO Q8HR [facility] Last Admin: 03/09/17 05:15 Dose: 50 mg Ondansetron HCl (Zofran) 4 mg IVPUSH Q8H PRN PRN Reason: Nausea/Vomiting Oseltamivir Phosphate (Tamiflu) 75 mg PO BID [facility] Stop: 03/04/17 21:01 Last Admin: 03/04/17 09:21 Dose: Not Given Pantoprazole Sodium (Protonix Iv) 40 mg IVPUSH DAILY [facility] Last Admin: 03/09/17 09:14 Dose: 40 mg Potassium Chloride (Potassium Chloride) 40 meq PO TID [facility] Stop: 03/03/17 15:01 Last Admin: 03/04/17 02:20 Dose: Not Given Potassium Chloride (Potassium Chloride Solution) 40 meq PO ONETIME ONE Stop: 03/09/17 10:01 Last Admin: 03/09/17 13:12 Dose: 40 meq Potassium Chloride (Potassium Chloride) 40 meq PO ONETIME ONE Stop: 03/09/17 14:01 Last Admin: 03/09/17 13:08 Dose: 40 meq Saccharomyces Boulardii (Florastor) 250 mg PO DAILY [facility] Last Admin: 03/02/17 09:52 Dose: 250 mg Sertraline HCl (Zoloft) 25 mg PO ONETIME ONE Stop: 03/04/17 15:46 Last Admin: 03/04/17 16:36 Dose: 25 mg Sodium Chloride (Sodium Chloride 0.9%) 3 ml INH QID [facility] Last Admin: 03/04/17 19:40 Dose: Not Given Tbo-Filgrastim (Granix) 480 mcg SUBCUT DAILY [facility] Stop: 03/10/17 09:01 Last Admin: 03/10/17 08:01 Dose: 480 mcg Tbo-Filgrastim (Granix) 480 mcg SQ ONETIME ONE Stop: 03/03/17 17:01 Last Admin: 03/03/17 18:11 Dose: 480 mcg Temazepam (Restoril) 15 mg PO BEDTIME PRN PRN Reason: Insomnia Vancomycin HCl (Pharmacy To Dose - Vancomycin) 1 dose .XX ASDIRECTED [facility] - Exam Quality Assessment: Reports: supplemental oxygen General: Reports: alert, oriented, cooperative, no acute distress HEENT: Reports: Pupils equal, Pupils reactive, EOMI, Mucous membr. moist/pink Neck: Reports: supple Lungs: Reports: Normal respiratory effort, Decreased breath sounds, Wheezing ( minimal, scattered) Cardiovascular: Reports: Irregular Rhythm Abdomen: Reports: bowel sounds present, soft, no tenderness, no distension (Male) Exam: Deferred Rectal (Males) Exam: Deferred Back Exam: Reports: normal inspection Extremities: Reports: no edema, no calf tenderness Skin: Reports: warm, dry, intact Neurological: Reports: no new focal deficit Psy/Mental Status: Reports: alert, normal affect, normal mood *Q Meaningful Use (DIS) - VTE *Q VTE Criteria *Q: - Stroke *Q Stroke Criteria *Q: - AMI *Q AMI Criteria *Q: <Susana Chou - Last Filed: 03/12/17 19:26> Discharge Summary - Hospital Course Free Text/Narrative:: Requires close follow up, difficulty eating post RTX treatment. - Discharge Diagnosis/Problem(s) (1) Dehydration SNOMED Code(s): 45707187 ICD Code: E86.0 - DEHYDRATION Status: Acute (2) Hypoxia SNOMED Code(s): 393458733, 263818141 ICD Code: R09.02 - HYPOXEMIA Status: Acute (3) Influenza SNOMED Code(s): 3860325 ICD Code: J11.1 - FLU DUE TO UNIDENTIFIED INFLUENZA VIRUS W OTH RESP MANIFEST Status: Acute (4) Neutropenia SNOMED Code(s): 949699793 ICD Code: D70.9 - NEUTROPENIA, UNSPECIFIED Status: Acute Qualifiers: Neutropenia type: secondary to cancer chemotherapy Qualified Code(s): D70.1 - Agranulocytosis secondary to cancer chemotherapy - Patient Summary/Data Consults: Consultations 02/28/17 09:00 Consult to Physical Therapy [PT Evaluation and Treatment] [CONS] Routine Consult to Mechanical Pencils Assembler [CONS] Routine 02/28/17 10:00 Consult to Occupational Therapy [OT Evaluation and Treatment] [CONS] Routine - Patient Data Vitals - Most Recent: Last Vital Signs Temp 36.6 C 03/11/17 07:50 Pulse 70 03/11/17 07:50 Resp 18 03/11/17 07:50 BP 90/68 03/11/17 07:50 Pulse Ox 99 03/11/17 07:50 Med Orders - Current: Current Medications Discontinued Medications Acetaminophen (Tylenol) 650 mg PO Q6H PRN PRN Reason: Fever Last Admin: 03/01/17 09:13 Dose: 650 mg Albuterol (Proventil Neb Soln) 2.5 mg NEB Q4H PRN PRN Reason: Shortness of Breath Albuterol (Proventil Hfa) 0 gm INH Q4H PRN PRN Reason: Shortness of Breath Last Admin: 03/08/17 17:13 Dose: 2 puff Albuterol (Proventil Neb Soln) 2.5 mg INH Q6H PRN PRN Reason: SHORTNESS OF BREATH Last Admin: 03/10/17 20:49 Dose: 2.5 mg Barium Sulfate (E-Z-Paste) 454 gm PO ONETIME ONE Stop: 02/28/17 09:59 Last Admin: 02/28/17 14:42 Dose: Not Given Barium Sulfate (E-Z-Hd) 340 gm PO ONETIME ONE Stop: 02/28/17 09:59 Last Admin: 02/28/17 14:42 Dose: Not Given Barium Sulfate (Liquid E-Z Paque) 355 ml PO PREPRO ONE Stop: 02/28/17 09:59 Last Admin: 02/28/17 14:43 Dose: Not Given Benzocaine/Menthol (Cepacol Sore Throat) 1 lozenge MUCMEM Q2HR PRN PRN Reason: Sore Throat Last Admin: 03/10/17 21:57 Dose: 1 lozenge Bisacodyl (Dulcolax) 10 mg PO BID PRN PRN Reason: Constipation Diltiazem HCl (Diltiazem) 10 mg IVPUSH ONETIME ONE Stop: 03/03/17 10:40 Last Admin: 03/03/17 11:06 Dose: 10 mg Diphenhydr/Magaldrate/Simeth/Lidoca (First-Mouthwash Blm Susp) 30 ml PO ACBED PRN PRN Reason: Sore Throat Docusate Sodium (Colace) 100 mg PO DAILY PRN PRN Reason: Constipation Enoxaparin Sodium (Lovenox) 40 mg SUBCUT DAILY [facility] Furosemide (Lasix) 20 mg IVPUSH NOW ONE Stop: 03/04/17 15:09 Last Admin: 03/04/17 15:27 Dose: 20 mg Furosemide (Lasix) 20 mg IVPUSH NOW ONE Stop: 03/06/17 08:47 Last Admin: 03/06/17 09:02 Dose: 20 mg Furosemide (Lasix) 20 mg IVPUSH NOW ONE Stop: 03/06/17 10:17 Last Admin: 03/06/17 11:25 Dose: Not Given Furosemide (Lasix) 20 mg IVPUSH NOW ONE Stop: 03/06/17 10:17 Last Admin: 03/06/17 11:41 Dose: Not Given Furosemide (Lasix) 20 mg IVPUSH ONETIME ONE Stop: 03/07/17 02:23 Last Admin: 03/07/17 02:29 Dose: 20 mg Furosemide (Lasix) Confirm Administered Dose 20 mg .ROUTE .STK-MED ONE Stop: 03/07/17 02:26 Last Admin: 03/07/17 02:32 Dose: Not Given Furosemide (Lasix) 20 mg IVPUSH NOW ONE Stop: 03/07/17 10:16 Last Admin: 03/07/17 10:40 Dose: 20 mg Furosemide (Lasix) 10 mg IVPUSH NOW ONE Stop: 03/09/17 11:18 Last Admin: 03/09/17 13:08 Dose: 10 mg Furosemide (Lasix) 20 mg IVPUSH NOW ONE Stop: 03/11/17 09:10 Last Admin: 03/11/17 09:24 Dose: 20 mg Heparin Sodium (Porcine) (Heparin Lock Flush 100 Units/Ml Syringe) 500 units FLUSH ASDIRECTED ONE Stop: 03/11/17 10:01 Last Admin: 03/11/17 11:01 Dose: 500 units Hydromorphone HCl (Dilaudid) 0.5 mg IVPUSH Q2H PRN PRN Reason: Pain Last Admin: 03/10/17 17:25 Dose: 0.5 mg Hydromorphone HCl (Dilaudid) 1 mg IVPUSH Q2H PRN PRN Reason: Pain (severe 7-10) Last Admin: 03/11/17 00:28 Dose: 1 mg Sodium Chloride (Normal Saline) 1,000 mls @ 150 mls/hr IV ONETIME ONE Stop: 02/27/17 20:19 Last Admin: 02/27/17 14:21 Dose: 150 mls/hr Lactated Ringer's (Ringers, Lactated) 1,000 mls @ 999 mls/hr IV Q1H [facility] Stop: 02/27/17 20:44 Last Admin: 02/27/17 20:53 Dose: 999 mls/hr Promethazine HCl 12.5 mg/ (Sodium Chloride) 50.5 mls @ 100 mls/hr IV Q6H PRN PRN Reason: Nausea/Vomiting Lactated Ringer's (Ringers, Lactated) 1,000 mls @ 125 mls/hr IV ASDIRECTED [facility] Last Admin: 02/27/17 21:58 Dose: 125 mls/hr Levofloxacin/Dextrose 750 mg/ (Premix) 150 mls @ 100 mls/hr IV Q24H [facility] Piperacillin Sod/Tazobactam (Sod 4.5 gm/ Sodium Chloride) 100 mls @ 200 mls/hr IV ONETIME ONE Stop: 02/28/17 10:59 Last Admin: 02/28/17 11:26 Dose: 200 mls/hr Piperacillin Sod/Tazobactam (Sod 4.5 gm/ Sodium Chloride) 100 mls @ 25 mls/hr IV Q8H [facility] Last Admin: 03/02/17 09:52 Dose: 25 mls/hr Levofloxacin/Dextrose 750 mg/ (Premix) 150 mls @ 100 mls/hr IV Q24H [facility] Last Admin: 03/02/17 16:57 Dose: Not Given Sodium Chloride (Normal Saline) 1,000 mls @ 125 mls/hr IV ASDIRECTED [facility] Last Admin: 03/01/17 05:16 Dose: 125 mls/hr Dextrose/Sodium Chloride (Dextrose 5%-Normal Saline) 1,000 mls @ 125 mls/hr IV ASDIRECTED [facility] Last Admin: 03/02/17 02:46 Dose: 125 mls/hr Sodium Chloride (Normal Saline) 1,000 mls @ 80 mls/hr IV ASDIRECTED [facility] Last Admin: 03/03/17 11:16 Dose: 80 mls/hr Meropenem 1 gm/ Sodium (Chloride) 100 mls @ 200 mls/hr IV Q8H [facility] Vancomycin HCl 1 gm/Vancomycin HCl 250 mg/ Sodium Chloride 250 mls @ 250 mls/ hr IV Q12H [facility] Last Admin: 03/03/17 10:32 Dose: 250 mls/hr Meropenem 1 gm/ Sodium (Chloride) 100 mls @ 200 mls/hr IV Q8H [facility] Stop: 03/05/17 14:00 Last Admin: 03/05/17 09:06 Dose: 200 mls/hr Magnesium Sulfate 2 gm/ Premix 50 mls @ 25 mls/hr IV ONETIME ONE Stop: 03/03/17 12:59 Last Admin: 03/03/17 11:05 Dose: 25 mls/hr Diltiazem HCl 100 mg/ Sodium (Chloride) 100 mls @ 5 mls/hr IV TITRATE [facility]; 5 MG /HR PRN Reason: Protocol Last Titration: 03/07/17 09:40 Dose: 0 mg/hr, 0 mls/hr Potassium Chloride 10 meq/ (Premix) 100 mls @ 100 mls/hr IV Q1H [facility] Stop: 03/03/17 14:44 Last Admin: 03/03/17 14:46 Dose: 100 mls/hr Vancomycin HCl 1 gm/Vancomycin HCl 250 mg/ Sodium Chloride 250 mls @ 250 mls/ hr IV Q12H BELL Last Admin: 03/04/17 11:21 Dose: 250 mls/hr Meropenem 500 mg/ Sodium (Chloride) 100 mls @ 200 mls/hr IV Q6H BELL Last Admin: 03/08/17 08:35 Dose: 200 mls/hr Vancomycin HCl 1 gm/Vancomycin HCl 500 mg/ Sodium Chloride 250 mls @ 250 mls/ hr IV Q12H BELL Last Admin: 03/05/17 00:50 Dose: Not Given Vancomycin HCl 1 gm/Vancomycin HCl 500 mg/ Sodium Chloride 500 mls @ 500 mls/ hr IV Q12H BELL Last Admin: 03/05/17 00:50 Dose: Not Given Vancomycin HCl 1 gm/Vancomycin HCl 500 mg/ Sodium Chloride 500 mls @ 250 mls/ hr IV Q12H [facility] Last Admin: 03/06/17 17:20 Dose: Not Given Sodium Chloride (Normal Saline) Confirm Administered Dose 500 mls @ as directed .ROUTE .STK-MED ONE Stop: 03/04/17 23:55 Last Admin: 03/05/17 00:09 Dose: Not Given Vancomycin HCl 1 gm/Vancomycin HCl 250 mg/ Sodium Chloride 250 mls @ 166 mls/ hr IV Q8H BELL Vancomycin HCl 1 gm/Vancomycin HCl 250 mg/ Sodium Chloride 250 mls @ 166 mls/ hr IV Q8H [facility] Last Admin: 03/08/17 04:03 Dose: 166 mls/hr Potassium Chloride 10 meq/ (Premix) 100 mls @ 100 mls/hr IV Q1H [facility] Stop: 03/07/17 17:29 Last Admin: 03/07/17 16:24 Dose: 100 mls/hr Diltiazem HCl 125 mg/ Sodium (Chloride) 125 mls @ 5 mls/hr IV TITRATE BELL; 5 MG /HR PRN Reason: Protocol Diltiazem HCl 125 mg/ Sodium (Chloride) 125 mls @ 5 mls/hr IV TITRATE BELL; 5 MG /HR PRN Reason: Protocol Last Titration: 03/07/17 12:52 Dose: 0 mg/hr, 0 mls/hr Magnesium Sulfate 2 gm/ Premix 50 mls @ 25 mls/hr IV ONETIME ONE Stop: 03/09/17 11:51 Last Admin: 03/09/17 13:08 Dose: 25 mls/hr Levalbuterol HCl (Xopenex) 1.25 mg NEB QIDRT BELL Last Admin: 03/04/17 12:07 Dose: Not Given Levalbuterol HCl (Xopenex) Confirm Administered Dose 1.25 mg .ROUTE .STK-MED ONE Stop: 03/04/17 09:25 Last Admin: 03/04/17 09:42 Dose: 1.25 mg Lidocaine HCl (Xylocaine 2% Viscous) 15 ml PO ASDIRECTED PRN PRN Reason: Sore Throat Lidocaine HCl (Xylocaine 2% Viscous) 15 ml PO ASDIRECTED PRN PRN Reason: Sore Throat Loperamide HCl (Imodium) 2 mg PO Q4H PRN PRN Reason: Diarrhea Loperamide HCl (Imodium) 2 mg PO Q4H PRN PRN Reason: Diarrhea Magnesium Hydroxide (Milk Of Magnesia) 30 ml PO ONETIME ONE Stop: 03/01/17 22:04 Last Admin: 03/01/17 23:46 Dose: Not Given Meropenem (Merrem) Confirm Administered Dose 1 gm .ROUTE .STK-MED ONE Stop: 03/03/17 17:34 Last Admin: 03/03/17 17:40 Dose: Not Given Meropenem (Merrem) Confirm Administered Dose 500 mg .ROUTE .STK-MED ONE Stop: 03/05/17 16:21 Last Admin: 03/05/17 16:25 Dose: Not Given Methylprednisolone Sodium Succinate (Solu-Medrol) 40 mg IVPUSH Q12H [facility] Last Admin: 03/02/17 06:17 Dose: 40 mg Methylprednisolone Sodium Succinate (Solu-Medrol) 10 mg IVPUSH DAILY [facility] Last Admin: 03/04/17 09:22 Dose: 10 mg Metoclopramide HCl (Reglan) 10 mg IVPUSH Q6H [facility] Last Admin: 03/04/17 09:16 Dose: 10 mg Metoprolol Tartrate (Lopressor) 5 mg IVPUSH ONETIME ONE Stop: 03/03/17 08:31 Last Admin: 03/03/17 08:38 Dose: 5 mg Metoprolol Tartrate (Lopressor) 5 mg IVPUSH Q5M PRN PRN Reason: for heart rate sustaining >120 Stop: 03/03/17 09:06 Last Admin: 03/03/17 09:03 Dose: 5 mg Metoprolol Tartrate (Lopressor) 5 mg IVPUSH ONETIME ONE Stop: 03/03/17 17:45 Last Admin: 03/03/17 18:08 Dose: 5 mg Metoprolol Tartrate (Lopressor) 10 mg IVPUSH ONETIME ONE Stop: 03/03/17 17:46 Last Admin: 03/03/17 20:20 Dose: Not Given Metoprolol Tartrate (Lopressor) 5 mg IVPUSH ONETIME PRN PRN Reason: Tachycardia Last Admin: 03/03/17 22:05 Dose: 5 mg Metoprolol Tartrate (Lopressor) Confirm Administered Dose 10 mg .ROUTE .STK-MED ONE Stop: 03/04/17 06:13 Last Admin: 03/04/17 16:30 Dose: Not Given Metoprolol Tartrate (Lopressor) 5 mg IVPUSH ONETIME ONE Stop: 03/04/17 06:14 Last Admin: 03/04/17 06:15 Dose: 5 mg Metoprolol Tartrate (Lopressor) 5 mg IVPUSH ONETIME PRN PRN Reason: Tachycardia Metoprolol Tartrate (Lopressor) 5 mg IVPUSH ONETIME ONE Stop: 03/04/17 16:31 Last Admin: 03/04/17 16:38 Dose: 5 mg Metoprolol Tartrate (Lopressor) 10 mg IVPUSH ONETIME ONE Stop: 03/06/17 11:28 Last Admin: 03/06/17 11:41 Dose: 10 mg Metoprolol Tartrate (Lopressor) 50 mg PO BID [facility] Last Admin: 03/08/17 08:31 Dose: 50 mg Metoprolol Tartrate (Lopressor) 50 mg PO Q8HR [facility] Last Admin: 03/09/17 05:15 Dose: 50 mg Metoprolol Tartrate (Lopressor) 75 mg PO Q8HR [facility] Last Admin: 03/11/17 06:44 Dose: 75 mg Ondansetron HCl (Zofran) 4 mg IVPUSH Q8H PRN PRN Reason: Nausea/Vomiting Ondansetron HCl (Zofran) 4 mg IVPUSH Q6H PRN PRN Reason: Nausea/Vomiting Oseltamivir Phosphate (Tamiflu) 75 mg PO BID [facility] Stop: 03/04/17 21:01 Last Admin: 03/04/17 09:21 Dose: Not Given Pantoprazole Sodium (Protonix Iv) 40 mg IVPUSH DAILY [facility] Last Admin: 03/09/17 09:14 Dose: 40 mg Potassium Chloride (Potassium Chloride) 40 meq PO TID [facility] Stop: 03/03/17 15:01 Last Admin: 03/04/17 02:20 Dose: Not Given Potassium Chloride (Potassium Chloride Solution) 40 meq PO ONETIME ONE Stop: 03/09/17 10:01 Last Admin: 03/09/17 13:12 Dose: 40 meq Potassium Chloride (Potassium Chloride) 40 meq PO ONETIME ONE Stop: 03/09/17 14:01 Last Admin: 03/09/17 13:08 Dose: 40 meq Saccharomyces Boulardii (Florastor) 250 mg PO DAILY [facility] Last Admin: 03/02/17 09:52 Dose: 250 mg Sertraline HCl (Zoloft) 25 mg PO ONETIME ONE Stop: 03/04/17 15:46 Last Admin: 03/04/17 16:36 Dose: 25 mg Sodium Chloride (Sodium Chloride 0.9%) 3 ml INH QID [facility] Last Admin: 03/04/17 19:40 Dose: Not Given Sodium Chloride (Sodium Chloride 0.9%) 3 ml INH QIDRT [facility] Last Admin: 03/11/17 10:16 Dose: Not Given Tbo-Filgrastim (Granix) 480 mcg SUBCUT DAILY [facility] Stop: 03/10/17 09:01 Last Admin: 03/10/17 08:01 Dose: 480 mcg Tbo-Filgrastim (Granix) 480 mcg SQ ONETIME ONE Stop: 03/03/17 17:01 Last Admin: 03/03/17 18:11 Dose: 480 mcg Temazepam (Restoril) 15 mg PO BEDTIME PRN PRN Reason: Insomnia Temazepam (Restoril) 15 mg PO BEDTIME PRN PRN Reason: Insomnia Last Admin: 03/10/17 21:54 Dose: 15 mg Vancomycin HCl (Pharmacy To Dose - Vancomycin) 1 dose .XX ASDIRECTED BELL *Q Meaningful Use (DIS) - VTE *Q VTE Criteria *Q: - Stroke *Q Stroke Criteria *Q: - AMI *Q AMI Criteria *Q:
--- NOTE | 2017-03-11 10:23 | CR ---
Chest: Two views of the chest were obtained. Comparison: Previous chest x-ray of 03/09/17. Heart size and mediastinum are normal. Lung markings are increased which appear stable from prior chest x-ray. No acute infiltrates are seen. Diaphragms are flattened on the lateral view compatible with emphysematous change. Mild degenerative spurring seen within the spine. Infusion port seen entering from the left side. Impression: 1. Findings as described above which appear similar to prior chest x-ray. Nothing acute is identified. Diagnostic code #2
== END 2017-03-11 11:35 | disposition home or self-care (01) | DRG 206 ==
LOC: JD.ED 12:56 → JD.MS 16:10 → JD.ICU 03-03 09:57 → JD.MS 03-10 19:47
PROVIDERS: ADMIT Internal Medicine Cardiovascular Disease; ATTEND Internal Medicine Cardiovascular Disease
DX: R09.02 Hypoxemia (principal); C34.90 Malignant neoplasm of unspecified part of unspecified bronchus or lung; C79.51 Secondary malignant neoplasm of bone; E86.0 Dehydration; R06.02 Shortness of breath; J11.1 Influenza due to unidentified influenza virus with other respiratory manifestations; R13.10 Dysphagia, unspecified; R63.4 Abnormal weight loss; D70.9 Neutropenia, unspecified; D69.6 Thrombocytopenia, unspecified; M54.9 Dorsalgia, unspecified; R19.7 Diarrhea, unspecified; J20.9 Acute bronchitis, unspecified; I48.91 Unspecified atrial fibrillation; I11.9 Hypertensive heart disease without heart failure; Z87.891 Personal history of nicotine dependence; Z66 Do not resuscitate; K21.9 Gastro-esophageal reflux disease without esophagitis; Z79.899 Other long term (current) drug therapy; Z79.82 Long term (current) use of aspirin; Z95.828 Presence of other vascular implants and grafts
CPT/HCPCS: 36415; 71010; 71010-26; 71020; 71020-26; 74230; 74230-26; 80048; 80053; 80202; 81001; 83605; 83735; 84443; 85025; 85027; 86140; 86738; 87040; 87046; 87070; 87205; 87486; 87493; 87581; 87633; 87798; 87804; 87899; 92611-GN; 93005; 93306; 94640; 94640-76; 94664; 94667; 94668; 94760; 94761; 96360; 96361; 97161-GP; 97165-GO; 99284; 99285-25; A9270-GY; C9113; J1170; J1447; J1642; J1940; J1956; J2185; J2543; J2765; J2920; J3370; J3475; J3480; J3490; J7030; J7040; J7042; J7050; J7120

== ENCOUNTER 2017-05-02 09:56 | Emergency (ER) | payer OTHER ==
[2017-05-02] MEDS ORDERED: Sodium Chloride 0.9% 1,000 ML IV SCH (10:45)
[2017-05-02] MEDS ORDERED: HYDROmorphone 1 MG/ML Syringe IVPUSH ONE (11:14)
[2017-05-02] MEDS ORDERED: Lactated Ringers 500 ML IV ONE (11:14)
[2017-05-02] MEDS ORDERED: Levofloxacin/Dextrose 5%-Water 750 MG in Premix Bag 1 BAG IV ONE (12:06)
--- NOTE | 2017-05-02 12:21 | CR ---
Abdominal series: Supine and upright views of the abdomen were obtained as well as frontal view of the chest. Comparison: Previous chest x-ray of 03/11/17 is available, no previous abdominal x-ray. Heart size and mediastinum are normal. Left-sided infusion port is seen. Lungs are clear with no acute infiltrates. No free air is seen. Bowel gas pattern appears within normal limits. Slight degenerative change is noted within the spine. Calcification within the pelvis is seen compatible with phleboliths. Impression: 1. Incidental findings as noted above. Nothing acute is appreciated on abdominal series. Diagnostic code #2
--- NOTE | 2017-05-02 12:28 | EDM.PDOC ---
ED HPI GENERAL MEDICAL PROBLEM - General Chief Complaint: Gastrointestinal Problem Stated Complaint: FEEDING TUBE REMOVED AND HAVING ISSUES EATING Time Seen by Provider: 05/02/17 10:13 Source of Information: Reports: Patient, Family History Limitations: Reports: No Limitations - History of Present Illness INITIAL COMMENTS - FREE TEXT/NARRATIVE: The patient presents with drainage from an old PEG tube site. The patient has lung cancer and he has been getting chemo and radiation. 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 Lately he has been doing good and able to eat and drink. Yesterday the PEG tube was removed. Since then he has had lots of drainage out of the hole. Any time he eats or drinks it pours out of the hole. He went to [facility] yesterday and there was a puddle outside in the parking lot. Through the night he has soaked many pads. They also used maxi pads through the night. He denies any fever or chills. He has no nausea or vomiting. He has not been eating or drinking since last night. There is more erythema around the peg site. Onset: Gradual Duration: Day(s): (yesterday) Location: Reports: Abdomen Quality: Reports: Sharp Severity: Mild Improves with: Reports: None Worsens with: Reports: None Associated Symptoms: Reports: No Other Symptoms - Related Data Allergies Allergy/AdvReac Type Severity Reaction Status Date / Time No Known Allergies Allergy Verified 02/27/17 13:18 Home Meds: Home Meds Albuterol [IJD: Ventolin HFA] 1 puff INH .TWICE DAILY #18 gm 01/16/17 [Rx] Albuterol [IJD: Albuterol] 2.5 mg INH Q6H PRN #1 box 03/11/17 [Rx] Hydrocodone/Acetaminophen [Hydrocodon-Acetaminophen 5-325] 1 - 2 each PO Q6HR # 40 tablet 03/11/17 [Rx] Metoprolol Tartrate [Lopressor] 75 mg PO Q8HR #200 tablet 03/11/17 [Rx] Prednisone [IJD: Prednisone] 10 mg PO DAILY #15 tab 03/11/17 [Rx] Doxycycline [Vibramycin] 100 mg PO Q12HR #14 cap 05/02/17 [Rx] Past Medical History - Past Health History Medical/Surgical History: Denies Medical/Surgical History Cardiovascular History: Reports: Arrhythmia Respiratory History: Reports: SOB Gastrointestinal History: Reports: GERD Genitourinary History: Reports: Other (See Below) Other Genitourinary History: 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 Musculoskeletal History: Reports: Fracture Other Musculoskeletal History: right thumb Oncologic (Cancer) History: Reports: Lung - Infectious Disease History Infectious Disease History: Reports: Chicken Pox - Past Surgical History Respiratory Surgical History: Reports: Lung Biopsies, Other (See Below) Social & Family History - Family History Family Medical History: Noncontributory - Tobacco Use Smoking Status *Q: Former Smoker Years of Tobacco use: 45 Packs/Tins Daily: 2 Used Tobacco, but Quit: Yes Month Tobacco Last Used: october Second Hand Smoke Exposure: No - Caffeine Use Caffeine Use: Reports: Coffee Other Caffeine Use: not much now that he is sick - Recreational Drug Use Recreational Drug Use: No ED ROS GENERAL - Review of Systems Review Of Systems: See Below Constitutional: Reports: No Symptoms HEENT: Reports: No Symptoms Respiratory: Reports: No Symptoms Cardiovascular: Reports: No Symptoms Endocrine: Reports: No Symptoms GI/Abdominal: Reports: Other (PEG tube site patent) : Reports: No Symptoms Musculoskeletal: Reports: No Symptoms ED EXAM, GI/ABD - Physical Exam Exam: See Below Exam Limited By: No Limitations General Appearance: Alert, No Apparent Distress Ears: Normal External Exam Nose: Normal Inspection Head: Atraumatic, Normocephalic Neck: Normal Inspection Respiratory/Chest: No Respiratory Distress, Lungs Clear, Normal Breath Sounds Cardiovascular: Regular Rate, Rhythm, No Edema, No Murmur GI/Abdominal: Soft, Tenderness (Mild tenderness around the PEG tube site. There is erythema around it and there is some yellow drainage and more dark drainage) Course - Vital Signs Last Recorded V/S: Last Vital Signs Temp 97.9 F 05/02/17 10:01 Pulse 115 H 05/02/17 10:01 Resp 16 05/02/17 10:01 BP 132/85 05/02/17 10:01 Pulse Ox 94 L 05/02/17 10:01 - Orders/Labs/Meds Orders: Active Orders 24 hr Category Date Time Status Implanted Port Access [RC] ONETIME Care 05/02/17 10:40 Active Abdomen 1V Flat [CR] Stat Exams 05/02/17 14:48 Taken CULTURE BLOOD [BC] Stat Lab 05/02/17 12:34 Received CULTURE BLOOD [BC] Stat Lab 05/02/17 13:05 Received Sodium Chloride 0.9% [Normal Saline] 1,000 ml Med 05/02/17 10:45 Active IV ASDIRECTED Blood Culture x2 Reflex Set [OM.PC] Stat Oth 05/02/17 12:06 Ordered Medication Orders Sodium Chloride (Normal Saline) 1,000 mls @ 125 mls/hr IV ASDIRECTED BELL Last Admin: 05/02/17 11:34 Dose: 125 mls/hr Labs: Laboratory Tests 05/02/17 05/02/17 Range/Units 11:09 11:09 WBC 0.38 L* (4.23-9.07) K/mm3 RBC 2.78 L (4.63-6.08) M/mm3 Hgb 7.4 L (13.7-17.5) gm/L Hct 22.8 L (40.1-51.0) % MCV 82.0 (79.0-92.2) fl MCH 26.6 (25.7-32.2) pg MCHC 32.5 (32.2-35.5) g/dl RDW Std Deviation 41.9 (35.1-43.9) fL Plt Count 14 L* (163-337) K/mm3 MPV 11.9 (9.4-12.3) fl Neut % (Auto) 23.8 L (34.0-67.9) % Lymph % (Auto) 52.6 (21.8-53.1) % [place] % (Auto) 18.4 H (5.3-12.2) % Eos % (Auto) 2.6 (0.8-7.0) Baso % (Auto) 0.0 L (0.1-1.2) % Neut # (Auto) 0.09 L (1.78-5.38) K/mm3 Lymph # (Auto) 0.20 L (1.32-3.57) K/mm3 [place] # (Auto) 0.07 L (0.30-0.82) K/mm3 Eos # (Auto) 0.01 L (0.04-0.54) K/mm3 Baso # (Auto) 0.00 L (0.01-0.08) K/mm3 Manual Slide Review Abnormal smear Sodium 134 L (136-145) mEq/L Potassium 3.6 (3.5-5.1) mEq/L Chloride 95 L (98-107) mEq/L Carbon Dioxide 28 (21-32) mEq/L Anion Gap 14.6 (5-15) BUN 26 H (7-18) mg/dL Creatinine 1.0 (0.7-1.3) mg/dL Est Cr Clr Drug Dosing 93.62 mL/min Estimated GFR (MDRD) > 60 (>60) mL/min BUN/Creatinine Ratio 26.0 H (14-18) Glucose 112 H (74-106) mg/dL Calcium 9.6 (8.5-10.1) mg/dL Total Bilirubin 0.8 (0.2-1.0) mg/dL AST 19 (15-37) U/L ALT 49 (16-63) U/L Alkaline Phosphatase 92 (46-116) U/L Total Protein 8.1 (6.4-8.2) g/dl Albumin 2.8 L (3.4-5.0) g/dl Globulin 5.3 gm/dL Albumin/Globulin Ratio 0.5 L (1-2) Lipase 55 L (73-393) U/L Meds: Medications Generic Name Dose Route Start Last Admin Trade Name Freq PRN Reason Stop Dose Admin Sodium Chloride 1,000 mls @ 125 mls/hr 05/02/17 10:45 05/02/17 11:34 Normal Saline IV 125 mls/hr ASDIRECTED BELL Administration Discontinued Medications Generic Name Dose Route Start Last Admin Trade Name Freq PRN Reason Stop Dose Admin Hydromorphone HCl 1 mg 05/02/17 11:14 Dilaudid IVPUSH 05/02/17 11:15 ONETIME ONE Lactated Ringer's 500 mls @ 1,000 mls/hr 05/02/17 11:14 Ringers, Lactated IV 05/02/17 11:43 .BOLUS ONE Levofloxacin/Dextrose 750 mg/ 150 mls @ 100 mls/hr 05/02/17 12:06 05/02/17 13 :19 Premix IV 05/02/17 13:35 100 mls/hr ONETIME ONE Administration Lidocaine HCl 10 ml 05/02/17 14:03 05/02/17 14:18 Xylocaine 2% Jelly MUCMEM 05/02/17 14:04 10 ml ONETIME ONE Administration Multi-Ingred Cream/Lotion/Oil/Oint 1 gm 05/02/17 14:36 Zinc Oxide TOP 05/02/17 14:37 ONETIME ONE - Re-Assessments/Exams Free Text/Narrative Re-Assessment/Exam: 05/02/17 12:31 I had my nurse access his port. I will get labs and an x-ray. His x-ray shows nothing acute. His WBC was low at 0.38. His Hgb was low at 7.4. His platelet count was low at 14. Last week his labs look good according to the patient. I called Dr Vazquez at [place] and this may take a few weeks to close. He recommended maybe putting a smaller bergman cath in and also treating the infection. 05/02/17 15:09 Dr Medel wanted me to treat the cellulitis. I put the bergman cath in and it appears to be working. I called Dr Mcclain and he agreed with Dr Vazquez's plan. He did recommend some zinc oxide over the irritated areas. I will get him on some doxycycline for the cellulitis. Departure - Departure Time of Disposition: 15:15 Disposition: Home, Self-Care 01 Condition: good Clinical Impression: Pancytopenia due to antineoplastic chemotherapy Cellulitis Qualifiers: Site of cellulitis: trunk Site of cellulitis of trunk: abdominal wall Qualified Code(s): L03.311 - Cellulitis of abdominal wall - Discharge Information Prescriptions: Doxycycline [Vibramycin] 100 mg PO Q12HR #14 cap Referrals: PCP,None [Primary Care Provider] - Migel Mcclain MD [Physician] - Forms: ED Department Discharge Additional Instructions: Continue your medications as prescribed. Take the doxycycline 2 times per day. Follow up with Dr Medel and Dr Vazquez or you can follow up with Dr Mcclain a general surgeon here in [place]. - My Orders Last 24 Hours: My Active Orders 05/02/17 10:40 Implanted Port Access [RC] ONETIME 05/02/17 10:45 Sodium Chloride 0.9% [Normal Saline] 1,000 ml IV ASDIRECTED 05/02/17 12:06 Blood Culture x2 Reflex Set [OM.PC] Stat 05/02/17 12:34 CULTURE BLOOD [BC] Stat 05/02/17 13:05 CULTURE BLOOD [BC] Stat 05/02/17 14:48 Abdomen 1V Flat [CR] Stat - Assessment/Plan Last 24 Hours: My Active Orders 05/02/17 10:40 Implanted Port Access [RC] ONETIME 05/02/17 10:45 Sodium Chloride 0.9% [Normal Saline] 1,000 ml IV ASDIRECTED 05/02/17 12:06 Blood Culture x2 Reflex Set [OM.PC] Stat 05/02/17 12:34 CULTURE BLOOD [BC] Stat 05/02/17 13:05 CULTURE BLOOD [BC] Stat 05/02/17 14:48 Abdomen 1V Flat [CR] Stat
[2017-05-02] MEDS ORDERED: Lidocaine 2% Jelly 10 ML Urojet MUCMEM ONE (14:03)
[2017-05-02 16:41] VITALS: BP 142/79
--- NOTE | 2017-05-03 12:55 | CR ---
Abdomen: Supine view of the abdomen was obtained. Comparison: Previous abdominal series of 05/02/17. Stable phlebolith is noted within the right side of the pelvis. Gastrostomy tube is seen. Bowel gas pattern is normal. No additional soft tissue abnormality is seen. Minimal endplate spurring seen within the spine. Impression: 1. Incidental findings as noted above. Interval change of gastrostomy from prior study. Diagnostic code #2
== END 2017-05-02 15:35 | disposition home or self-care (01) ==
LOC: JD.ED 09:56
DX: L03.311 Cellulitis of abdominal wall (principal); C34.90 Malignant neoplasm of unspecified part of unspecified bronchus or lung; D61.810 Antineoplastic chemotherapy induced pancytopenia; K21.9 Gastro-esophageal reflux disease without esophagitis; Z79.899 Other long term (current) drug therapy; Z87.891 Personal history of nicotine dependence
CPT/HCPCS: 36415; 74000; 74022; 80053; 83690; 85025; 87040; 96361; 96365; 96366; 99284; J1642; J1956; J7040

== ENCOUNTER 2017-05-03 07:59 | Emergency (ER) | payer OTHER ==
[2017-05-03] MEDS ORDERED: Sodium Chloride 0.9% 10 ML Syringe FLUSH PRN (09:22)
[2017-05-03] MEDS ORDERED: Levofloxacin/Dextrose 5%-Water 750 MG in Premix Bag 1 BAG IV ONE (09:22)
[2017-05-03] MEDS ORDERED: Lactated Ringers 1,000 ML IV SCH (09:30)
--- NOTE | 2017-05-03 09:43 | EDM.PDOC ---
ED HPI GENERAL MEDICAL PROBLEM - General Chief Complaint: Gastrointestinal Problem Stated Complaint: FEEDING TUBE ISSUES Time Seen by Provider: 05/03/17 08:15 Source of Information: Reports: Patient History Limitations: Reports: No Limitations - History of Present Illness INITIAL COMMENTS - FREE TEXT/NARRATIVE: PEG tube leaking. The patient presents with his PEG tube leaking. The patient has lung cancer and he is on chemo and radiation. The radiation affected his esophagus and he could not swallow so a PEG tube was put in. The patient can swallow now so the PEG tube was removed on . He had continuous drainage since then. He had a puddle of fluid in the parking lot of [facility] yesterday. He came in to be evaluated here. His WBC was 0.38. His platelets were 14 and his Hgb was 7.4. I talked with Dr Vazquez the general surgeon that put the PEG tube in and he recommended putting a bergman cath in. I called Dr Mcclain our general surgeon professional application designer and he agreed with Dr Vazquez's plan. I put the catheter in and sent him home. He had no drainage for a few hours and then he coughed and there was drainage. He has more burning pain. He has no fever or chills. Onset: Gradual Duration: Day(s): Location: Reports: Abdomen Quality: Reports: Burning Severity: Moderate Improves with: Reports: None Worsens with: Reports: None Associated Symptoms: Reports: Cough. Denies: Nausea/Vomiting, Shortness of Breath Abdomen Pain Score (Numeric/FACES): 8 - Related Data Allergies Allergy/AdvReac Type Severity Reaction Status Date / Time No Known Allergies Allergy Verified 05/03/17 08:14 Home Meds: Home Meds Albuterol [IJD: Ventolin HFA] 1 puff INH .TWICE DAILY #18 gm 01/16/17 [Rx] Albuterol [IJD: Albuterol] 2.5 mg INH Q6H PRN #1 box 03/11/17 [Rx] Morphine [Morphine 10 MG/5 ML] 2 ml PO ASDIRECTED 05/03/17 [History] Past Medical History - Past Health History Medical/Surgical History: Denies Medical/Surgical History Cardiovascular History: Reports: Arrhythmia Respiratory History: Reports: SOB Gastrointestinal History: Reports: GERD Genitourinary History: Reports: Other (See Below) Other Genitourinary History: 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 Musculoskeletal History: Reports: Fracture Other Musculoskeletal History: right thumb Oncologic (Cancer) History: Reports: Lung - Infectious Disease History Infectious Disease History: Reports: Chicken Pox - Past Surgical History Respiratory Surgical History: Reports: Lung Biopsies, Other (See Below) Social & Family History - Family History Family Medical History: Noncontributory - Tobacco Use Smoking Status *Q: Former Smoker Years of Tobacco use: 45 Packs/Tins Daily: 2 Used Tobacco, but Quit: Yes Month Tobacco Last Used: march Second Hand Smoke Exposure: No - Caffeine Use Caffeine Use: Reports: None Other Caffeine Use: not much now that he is sick - Recreational Drug Use Recreational Drug Use: No ED ROS GENERAL - Review of Systems Review Of Systems: See Below Constitutional: Reports: No Symptoms HEENT: Reports: No Symptoms Respiratory: Reports: No Symptoms Cardiovascular: Reports: No Symptoms Endocrine: Reports: No Symptoms GI/Abdominal: Reports: Abdominal Pain : Reports: No Symptoms Musculoskeletal: Reports: No Symptoms ED EXAM, GI/ABD - Physical Exam Exam: See Below Exam Limited By: No Limitations General Appearance: Alert, No Apparent Distress Ears: Normal External Exam Nose: Normal Inspection Head: Atraumatic, Normocephalic Neck: Normal Inspection Respiratory/Chest: No Respiratory Distress, Lungs Clear, Normal Breath Sounds Cardiovascular: Regular Rate, Rhythm, No Edema, No Murmur GI/Abdominal: Soft, No Organomegaly, No Mass, Other (PEG tube hole is open and has a bergman cath in. There is dark tissue at the opening and erythema extending around the hole that has gotten larger.) Back Exam: Normal Inspection Extremities: Normal Inspection Neurological: Alert, Oriented, No Motor/Sensory Deficits Course - Vital Signs Last Recorded V/S: Last Vital Signs Temp 97.1 F 05/03/17 08:10 Pulse 97 05/03/17 08:10 Resp 12 05/03/17 08:10 BP 115/79 05/03/17 08:10 Pulse Ox 99 05/03/17 08:10 - Orders/Labs/Meds Orders: Active Orders 24 hr Category Date Time Status Peripheral IV Care [RC] . DIRECTED Care 05/03/17 09:22 Active CBC WITH AUTO DIFF [HEME] Stat Lab 05/03/17 09:50 Results COMPREHENSIVE METABOLIC PN,CMP [CHEM] Stat Lab 05/03/17 09:50 Received Lactated Ringers [Ringers, Lactated] 1,000 ml Med 05/03/17 09:30 Active IV ASDIRECTED Levofloxacin/Dextrose 5%-Water [Levaquin in D5W 750 MG/ Med 05/03/17 09:22 Active 150 ML] 750 mg Premix Bag 1 bag IV ONETIME Sodium Chloride 0.9% [Saline Flush] Med 05/03/17 09:22 Active 10 ml FLUSH ASDIRECTED PRN Peripheral IV Insertion Adult [OM.PC] Stat Oth 05/03/17 09:22 Ordered Medication Orders Lactated Ringer's (Ringers, Lactated) 1,000 mls @ 125 mls/hr IV ASDIRECTED BELL Last Admin: 05/03/17 09:36 Dose: 125 mls/hr Levofloxacin/Dextrose 750 mg/ (Premix) 150 mls @ 100 mls/hr IV ONETIME ONE Stop: 05/03/17 10:51 Last Admin: 05/03/17 09:36 Dose: 100 mls/hr Sodium Chloride (Saline Flush) 10 ml FLUSH ASDIRECTED PRN PRN Reason: Keep Vein Open Last Admin: 05/03/17 09:40 Dose: 10 ml Labs: Laboratory Tests 05/03/17 Range/Units 09:50 WBC 0.76 L* (4.23-9.07) K/mm3 RBC 2.50 L (4.63-6.08) M/mm3 Hgb 6.7 L* (13.7-17.5) gm/L Hct 20.5 L (40.1-51.0) % MCV 82.0 (79.0-92.2) fl MCH 26.8 (25.7-32.2) pg MCHC 32.7 (32.2-35.5) g/dl RDW Std Deviation 41.0 (35.1-43.9) fL Plt Count 6 L* (163-337) K/mm3 Neut % (Auto) 36.8 (34.0-67.9) % Lymph % (Auto) 30.3 (21.8-53.1) % Tyler % (Auto) 21.1 H (5.3-12.2) % Eos % (Auto) 1.3 (0.8-7.0) Baso % (Auto) 0.0 L (0.1-1.2) % Neut # (Auto) 0.28 L (1.78-5.38) K/mm3 Lymph # (Auto) 0.23 L (1.32-3.57) K/mm3 Tyler # (Auto) 0.16 L (0.30-0.82) K/mm3 Eos # (Auto) 0.01 L (0.04-0.54) K/mm3 Baso # (Auto) 0.00 L (0.01-0.08) K/mm3 Meds: Medications Generic Name Dose Route Start Last Admin Trade Name Freq PRN Reason Stop Dose Admin Lactated Ringer's 1,000 mls @ 125 mls/hr 05/03/17 09:30 05/03/17 09:36 Ringers, Lactated IV 125 mls/hr ASDIRECTED BELL Administration Levofloxacin/Dextrose 750 mg/ 150 mls @ 100 mls/hr 05/03/17 09:22 05/03/17 09 :36 Premix IV 05/03/17 10:51 100 mls/hr ONETIME ONE Administration Sodium Chloride 10 ml 05/03/17 09:22 05/03/17 09:40 Saline Flush FLUSH 10 ml ASDIRECTED PRN Administration Keep Vein Open Discontinued Medications Generic Name Dose Route Start Last Admin Trade Name Freq PRN Reason Stop Dose Admin Hydromorphone HCl 1 mg 05/03/17 10:09 Dilaudid IVPUSH 05/03/17 10:10 ONETIME ONE - Re-Assessments/Exams Free Text/Narrative Re-Assessment/Exam: 05/03/17 09:[address] Mcclain our general surgeon come see the patient. He had major concerns that there was necrotic tissue at the hole and there was more cellulitis. He wanted me to send him to [place]. I called [facility] in [place] and talked with Dr Lee and Dr Alexis and they accepted the patient. I will get an IV and give him more levaquin and repeat some labs. 05/03/17 10:20 His WBC is 0.76 with neutraphils at 280. That is up slightly from yesterday at 0.38. His platelets are down further to 6 from 14 and his Hgb is lower at 6.7 and yesterday he was 7.4. I will be sending him by ambulance so he can get levaquin IV. Departure - Departure Time of Disposition: 10:25 Disposition: DC/Tfer to Acute Hospital 02 Condition: fair Clinical Impression: Pancytopenia due to antineoplastic chemotherapy, Leaking PEG tube Cellulitis Qualifiers: Site of cellulitis: trunk Site of cellulitis of trunk: abdominal wall Qualified Code(s): L03.311 - Cellulitis of abdominal wall Neutropenia Qualifiers: Neutropenia type: secondary to cancer chemotherapy Qualified Code(s): D70.1 - Agranulocytosis secondary to cancer chemotherapy - Discharge Information Forms: ED Department Discharge - My Orders Last 24 Hours: My Active Orders 05/03/17 09:22 Peripheral IV Care [RC] . DIRECTED Levofloxacin/Dextrose 5%-Water [Levaquin in D5W 750 MG/150 ML] 750 mg Premix Bag 1 bag IV ONETIME Sodium Chloride 0.9% [Saline Flush] 10 ml FLUSH ASDIRECTED PRN Peripheral IV Insertion Adult [OM.PC] Stat 05/03/17 09:30 Lactated Ringers [Ringers, Lactated] 1,000 ml IV ASDIRECTED 05/03/17 09:50 CBC WITH AUTO DIFF [HEME] Stat COMPREHENSIVE METABOLIC PN,CMP [CHEM] Stat - Assessment/Plan Last 24 Hours: My Active Orders 05/03/17 09:22 Peripheral IV Care [RC] . DIRECTED Levofloxacin/Dextrose 5%-Water [Levaquin in D5W 750 MG/150 ML] 750 mg Premix Bag 1 bag IV ONETIME Sodium Chloride 0.9% [Saline Flush] 10 ml FLUSH ASDIRECTED PRN Peripheral IV Insertion Adult [OM.PC] Stat 05/03/17 09:30 Lactated Ringers [Ringers, Lactated] 1,000 ml IV ASDIRECTED 05/03/17 09:50 CBC WITH AUTO DIFF [HEME] Stat COMPREHENSIVE METABOLIC PN,CMP [CHEM] Stat
[2017-05-03] MEDS ORDERED: HYDROmorphone 1 MG/ML Syringe IVPUSH ONE ×2 (10:09→11:20)
[2017-05-03 11:53] VITALS: BP 120/80
--- NOTE | 2017-05-05 07:09 | CONS ---
CONSULTING PHYSICIAN: Migel Mcclain MD DATE OF CONSULTATION: 05/03/2017 HISTORY OF PRESENT ILLNESS: This is a 56-year-old male, who has lung cancer and received radiation treatment with problems of eating and a PEG tube had been placed. The patient was doing well and eating without problem and PEG tube was removed on 05/01/2017. He came in to the emergency room with drainage around the PEG tube was some mild erythema. There was drainage out of the hole. The hole was not eroded at this time and the erythema was limited. A Jett catheter was inserted yesterday and patient has returned because of continued drainage around the Jett catheter. He has noted that the erythema has increased in size too, that the drainage has been more persistent, and erosion of the PEG tube site has increased. The patient has been on chemotherapy, has a port in, and his platelet counts are 14, his white count is 0.38, and hemoglobin is 7.4. The patient does not have any fever or chills. PAST MEDICAL HISTORY: Gastroesophageal reflux disease, an infarct of the left kidney 8 years ago, and of course history of the lung cancer. SOCIAL HISTORY: He is a former smoker. FAMILY HISTORY: Negative but has quit using tobacco. REVIEW OF SYSTEMS: No chest pain, shortness of breath, cough, hoarseness, wheezing, fainting, weakness, numbness, or convulsions. No nausea, vomiting or indigestion. He has abdominal pain around the PEG tube site as his chief complaint. PHYSICAL EXAMINATION: VITAL SIGNS: Shows a temperature of 97, pulse 115, respirations 16, and blood pressure 132/85. EYES: Unremarkable. NECK: Supple. LUNGS: Clear. HEART: Tones are regular rate, just little bit under 100. EXTREMITIES: Upper and lower extremities, no angulation deformities. NEUROLOGIC: No sensorineural deficit. He is alert and cooperative. PSYCHIC: Normal. SKIN: Warm. Examination around PEG-tube site has eroded from yesterday to about 2.5 cm. There is some blacking discoloration around the epidermis suggesting some necrosis there. There is surrounding erythema about 10 cm. There is induration around this area. An examination of depths of the wound shows a bile-like discharge. ASSESSMENT: 1. Neutropenic and thrombocytopenic secondary to chemotherapy. 2. 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 RECOMMENDATION: The patient should return to [facility] where there is a high likelihood need for surgery and attendant hematological products to achieve this. At the moment, replacing a PEG tube catheter would be appropriate with pressure held with suspect that this may lead to further erosion. Antibiotics of course are appropriate. The Jett catheter is not doing the job and would recommend that a PEG tube catheter might be more effective but this is not available at this institution. Recommend transfer. MMODAL /[id number]
== END 2017-05-03 11:50 ==
LOC: JD.ED 07:59
DX: D61.810 Antineoplastic chemotherapy induced pancytopenia (principal); L03.311 Cellulitis of abdominal wall; K94.23 Gastrostomy malfunction; K21.9 Gastro-esophageal reflux disease without esophagitis; D70.1 Agranulocytosis secondary to cancer chemotherapy; C34.90 Malignant neoplasm of unspecified part of unspecified bronchus or lung; Z87.891 Personal history of nicotine dependence; Z79.899 Other long term (current) drug therapy
CPT/HCPCS: 36415; 80053; 85025; 96365; 96366; 96375; 96376; 99284; J1170; J1956; J7050; J7120